=== PATIENT | female | born 1935 | race Caucasian/White ===

== ENCOUNTER 2016-05-15 11:53 | Outpatient (CLI) ==
[2015-07-11 13:04] VITALS: BMI 24.7
[2016-05-15 12:24] LABS: BASOPHILS % (AUTO) 0.7 % (0.0-3.0); EOSINOPHILS % (AUTO) 0.5 % (0.0-7.0); HEMATOCRIT 37.5 % (37.0-47.0); HEMOGLOBIN 12.8 g/dl (12.0-16.0); IMMATURE GRANULOCYTE % (AUTO) 0.5 % (0.0-5.0); LYMPHOCYTES # (AUTO) 1.3 K/uL (0.60-3.4); LYMPHOCYTES % (AUTO) 23.1 (10.0-50.0); MEAN CORPUSCULAR HEMOGLOBIN 30.5 pg (27.0-31.0); MEAN CORPUSCULAR HGB CONC 34.1 (31.8-35.4); MEAN CORPUSCULAR VOLUME 89.5 fl (81.0-99.0); MONOCYTES # (AUTO) 0.6 K/uL (0.4-2.0); MONOCYTES % (AUTO) 9.8 (0-10); NEUTROPHILS # (AUTO) 3.8 K/ul (2.0-6.9); NEUTROPHILS % (AUTO) 65.4; PLATELET COUNT 273 10^3/uL (140-440); RED BLOOD COUNT 4.19 10^6/ul (4.20-5.40); WHITE BLOOD COUNT 5.81 K/ul (4.6-10.2)
[2016-05-15 12:43] LABS: ALBUMIN 3.5 g/dL (3.4-5.0); ALBUMIN/GLOBULIN RATIO 0.88; ANION GAP 15.8; BILIRUBIN,TOTAL 0.24 mg/dL (0.00-1.20); BUN/CREATININE RATIO 18.94; CALCIUM 9.2 mg/dL (8.2-10.2); CREATININE 0.95 mg/dL (0.60-1.30); POTASSIUM 3.8 mmol/L (3.5-5.10); TOTAL PROTEIN 7.5 g/dL (5.8-8.1)
--- NOTE | 2016-05-15 13:00 | CT ---
EXAM: CT sinuses without contrast HISTORY: Acute sinusitis, maxillary COMPARISON: None TECHNIQUE: CT sinuses performed without intravenous contrast. Coronal and sagittal reformatted kemi ges obtained. FINDINGS: Mastoid air cells clear. Temporal mandibular joints normally aligned. No fracture ident ified. Sphenoid sinuses clear. No mucosal thickening in the left maxillary sinus. Ostiomeatal uni ts patent. Mild mucosal thickening ethmoid air cells. Frontal sinuses clear. No air-fluid levels in the paranasal sinuses. Globes and retrobulbar structures appear normal. There are atherosclerot ic calcifications. Low clips left neck region. Multiple missing teeth. Periapical lucency surroun ding an anterior left maxillary tooth and an anterior right mandibular tooth. Dental caries suggeste d. Nasal septum near midline. There are degenerative changes in the visualized spine. IMPRESSION: 1. Mild sinusitis with chronic features. 2. Periapical lucencies as described, likely periodontal disease. Dental caries suggested. Recommen d correlation with dental examination.
== END 2016-05-15 11:54 | disposition home or self-care (01) ==
LOC: RAD 11:53
PROVIDERS: ATTEND Emergency Medicine
DX: J01.00 Acute maxillary sinusitis, unspecified (principal); I10 Essential (primary) hypertension; I25.10 Atherosclerotic heart disease of native coronary artery without angina pectoris; E78.5 Hyperlipidemia, unspecified; E55.9 Vitamin D deficiency, unspecified; D64.9 Anemia, unspecified; M81.0 Age-related osteoporosis without current pathological fracture; F32.9 Major depressive disorder, single episode, unspecified; F41.1 Generalized anxiety disorder
CPT/HCPCS: 36415; 80053; 85025

== ENCOUNTER 2016-09-29 11:48 | Outpatient (CLI) ==
[2015-07-11 13:04] VITALS: BMI 24.7
[2016-09-29 12:27] LABS: BASOPHILS # (AUTO) 0.1 K/uL (0-0.2); BASOPHILS % (AUTO) 0.8 % (0.0-3.0); EOSINOPHILS # (AUTO) 0.1 K/ul (0.0-0.7); HEMATOCRIT 37.3 % (37.0-47.0); HEMOGLOBIN 12.6 g/dl (12.0-16.0); IMMATURE GRANULOCYTE % (AUTO) 0.2 % (0.0-5.0); LYMPHOCYTES # (AUTO) 1.7 K/uL (0.60-3.4); LYMPHOCYTES % (AUTO) 27.3 (10.0-50.0); MEAN CORPUSCULAR HEMOGLOBIN 29.9 pg (27.0-31.0); MEAN CORPUSCULAR HGB CONC 33.8 (31.8-35.4); MEAN CORPUSCULAR VOLUME 88.4 fl (81.0-99.0); MONOCYTES # (AUTO) 0.5 K/uL (0.4-2.0); MONOCYTES % (AUTO) 8.6 (0-10); NEUTROPHILS # (AUTO) 3.8 K/ul (2.0-6.9); NEUTROPHILS % (AUTO) 62.1; PLATELET COUNT 235 10^3/uL (140-440); RED BLOOD COUNT 4.22 10^6/ul (4.20-5.40); WHITE BLOOD COUNT 6.04 K/ul (4.6-10.2)
[2016-09-29 13:41] LABS: ALBUMIN 3.7 g/dL (3.4-5.0); ALBUMIN/GLOBULIN RATIO 1.12; ANION GAP 15.8; BILIRUBIN,TOTAL 0.63 mg/dL (0.00-1.20); BUN/CREATININE RATIO 12.79; CALCIUM 9.1 mg/dL (8.2-10.2); CHOL/HDL RATIO 3.6 (4.5-5.5); CREATININE 0.86 mg/dL (0.60-1.30); POTASSIUM 3.8 mmol/L (3.5-5.10)
== END 2016-09-29 11:49 | disposition home or self-care (01) ==
LOC: LAB 11:48
PROVIDERS: ATTEND Internal Medicine
DX: E78.5 Hyperlipidemia, unspecified (principal); D64.9 Anemia, unspecified; I10 Essential (primary) hypertension; Z79.899 Other long term (current) drug therapy
CPT/HCPCS: 36415; 80053; 80061; 83036; 84443; 85025

== ENCOUNTER 2016-10-31 11:59 | Inpatient (IN) ==
[2016-10-31] MEDS ORDERED: DECADRON 4 MG/ML SDV IM STA (12:50)
[2016-10-31] MEDS ORDERED: TYLENOL PO PRN (12:53)
[2016-10-31] MEDS ORDERED: TORADOL IVP STA (12:55)
[2016-10-31 13:25] VITALS: BMI 26.4
[2016-10-31 13:33] LABS: BASOPHILS % (AUTO) 0.3 % (0.0-3.0); EOSINOPHILS % (AUTO) 0.4 % (0.0-7.0); HEMATOCRIT 36.7 % (37.0-47.0); HEMOGLOBIN 12.6 g/dl (12.0-16.0); IMMATURE GRANULOCYTE % (AUTO) 0.4 % (0.0-5.0); LYMPHOCYTES # (AUTO) 1.4 K/uL (0.60-3.4); LYMPHOCYTES % (AUTO) 18.1 (10.0-50.0); MEAN CORPUSCULAR HEMOGLOBIN 30.1 pg (27.0-31.0); MEAN CORPUSCULAR HGB CONC 34.3 (31.8-35.4); MEAN CORPUSCULAR VOLUME 87.6 fl (81.0-99.0); MONOCYTES # (AUTO) 0.9 K/uL (0.4-2.0); MONOCYTES % (AUTO) 10.9 (0-10); NEUTROPHILS # (AUTO) 5.5 K/ul (2.0-6.9); NEUTROPHILS % (AUTO) 69.9; PLATELET COUNT 250 10^3/uL (140-440); RED BLOOD COUNT 4.19 10^6/ul (4.20-5.40); WHITE BLOOD COUNT 7.79 K/ul (4.6-10.2)
[2016-10-31] MEDS ORDERED: ANTIVERT PO PRN (13:54)
[2016-10-31 14:15] LABS: ALBUMIN 3.8 g/dL (3.4-5.0); ALBUMIN/GLOBULIN RATIO 1.15; ANION GAP 15.1; BILIRUBIN,TOTAL 0.89 mg/dL (0.00-1.20); BUN/CREATININE RATIO 13.63; CALCIUM 9.6 mg/dL (8.2-10.2); CREATININE 0.88 mg/dL (0.60-1.30); POTASSIUM 4.1 mmol/L (3.5-5.10); TOTAL PROTEIN 7.1 g/dL (5.8-8.1)
[2016-10-31] MEDS: DEXTROSE 5%-1/2NS IV SOLUTION 1,000 ML IV SCH (14:25)
[2016-10-31] MEDS: LEVAQUIN 500 MG in PREMIX 100 ML D5W 1 BAG IV SCH (14:26)
--- NOTE | 2016-10-31 14:29 | DI ---
EXAM: Chest two view, frontal and lateral views. HISTORY: Shortness of breath. Bronchitis. Sputum production. COMPARISON: 07/11/2015. FINDINGS: The heart size is normal. Atherosclerotic calcifications are present. There is no pulmo nary vascular congestion. The lungs are clear. No pleural effusion or pneumothorax is seen. No ac chelly osseous abnormality identified. Numerous clips seen over the base of the neck and upper abdomen . Since the prior study, there has been no significant interval change. IMPRESSION: No acute cardiopulmonary process.
[2016-10-31] MEDS: COREG PO SCH (17:05)
[2016-10-31] MEDS: ULTRAM PO PRN (19:00)
[2016-10-31] MEDS: ZESTRIL PO SCH (20:09)
[2016-10-31] MEDS: ATIVAN PO PRN (20:10)
[2016-10-31] MEDS: CARDIZEM PO SCH (20:11)
[2016-10-31] MEDS: TORADOL IVP SCH (20:11)
[2016-10-31] MEDS: LIBRIUM PO SCH (20:11)
[2016-10-31] MEDS ORDERED: LISINOPRIL 20 MG PO SCH (21:00)
[2016-11-01 04:58] LABS: BASOPHILS % (AUTO) 0.3 % (0.0-3.0); HEMOGLOBIN 11.6 g/dl (12.0-16.0); IMMATURE GRANULOCYTE % (AUTO) 0.8 % (0.0-5.0); LYMPHOCYTES # (AUTO) 0.8 K/uL (0.60-3.4); LYMPHOCYTES % (AUTO) 12.8 (10.0-50.0); MEAN CORPUSCULAR HEMOGLOBIN 30.1 pg (27.0-31.0); MEAN CORPUSCULAR HGB CONC 35.2 (31.8-35.4); MEAN CORPUSCULAR VOLUME 85.5 fl (81.0-99.0); MONOCYTES # (AUTO) 0.5 K/uL (0.4-2.0); NEUTROPHILS # (AUTO) 5.2 K/ul (2.0-6.9); NEUTROPHILS % (AUTO) 79.1; PLATELET COUNT 250 10^3/uL (140-440); RED BLOOD COUNT 3.86 10^6/ul (4.20-5.40); WHITE BLOOD COUNT 6.57 K/ul (4.6-10.2)
[2016-11-01] MEDS: DEXTROSE 5%-1/2NS IV SOLUTION 1,000 ML IV SCH ×2 (05:18→20:44)
[2016-11-01] MEDS: ULTRAM PO PRN ×2 (05:25→15:18)
[2016-11-01 05:32] LABS: ALBUMIN/GLOBULIN RATIO 0.94; ANION GAP 14.2; BILIRUBIN,TOTAL 0.51 mg/dL (0.00-1.20); BUN/CREATININE RATIO 18.29; CALCIUM 8.4 mg/dL (8.2-10.2); CREATININE 0.82 mg/dL (0.60-1.30); POTASSIUM 4.2 mmol/L (3.5-5.10); TOTAL PROTEIN 6.2 g/dL (5.8-8.1)
[2016-11-01] MEDS ORDERED: NON-FORMULARY MEDICATION (Escitalopram Oxalate [Escitalopram Oxalate] 20 MG) PO SCH (09:00)
[2016-11-01] MEDS ORDERED: NON-FORMULARY MEDICATION (Amlodipine Besylate [Amlodipine Besylate] 10 MG) PO SCH ×22 (09:00)
[2016-11-01] MEDS ORDERED: DECADRON 4 MG/ML SDV IM SCH (09:00)
[2016-11-01] MEDS: CARDIZEM PO SCH ×2 (09:02→20:51)
[2016-11-01] MEDS: ZESTRIL PO SCH ×2 (09:02→20:51)
[2016-11-01] MEDS: LEXAPRO PO SCH (09:02)
[2016-11-01] MEDS: COREG PO SCH ×2 (09:03→16:48)
[2016-11-01] MEDS: LEVAQUIN 500 MG in PREMIX 100 ML D5W 1 BAG IV SCH (09:03)
[2016-11-01] MEDS: NORVASC PO SCH (09:03)
[2016-11-01] MEDS: ASPIRIN EC PO SCH (09:03)
[2016-11-01] MEDS: LIBRIUM PO SCH ×2 (09:03→20:56)
[2016-11-01] MEDS: TORADOL IVP SCH ×2 (09:04→20:54)
--- NOTE | 2016-11-01 10:19 | PCM.PROG ---
Attending Provider: ATTENDING PROVIDER: Dr. SAGE MCCORMACK DATE OF SERVICE: 11/01/16 SUBJECTIVE: This 81 year old WHITE/ F was hospitalized 10/31/16. The patient is seen with Cheri, Nurse Practitioner. The patient is lying in bed. She states the headache is somewhat better. She is afebrile since admission. She has severe tenderness left cheek with swelling and redness around left eye. REVIEW OF SYSTEMS: CONSTITUTIONAL: Fatigue. No night sweats. No fever or chills. HEENT: Eyes: Left eye swelling and pain. No visual changes. No eye discharge. ENT: No runny nose. No epistaxis. No sinus pain. No odynophagia. No congestion. RESPIRATORY: No cough, no congestion. No hemoptysis. CARDIOVASCULAR: No angina symptoms. No CHF symptoms. No atypical chest pain for CAD. No palpitations. No shortness of breath. GASTROINTESTINAL: No abdominal pain. No nausea or vomiting. No diarrhea or constipation. No hematemesis. No hematochezia. GENITOURINARY: No urgency. No frequency. No dysuria. No hematuria. No obstructive symptoms. No discharge. No pain. No significant abnormal bleeding. MUSCULOSKELETAL: No musculoskeletal pain; no joint swelling. NEUROLOGICAL: Positive for headache. Awake, alert, oriented to time, place and person. No neck pain. No syncope. No seizures. No dizziness. PSYCHIATRIC: Not anxious. No depression. No suicidal thoughts. No homicidal thoughts. SKIN: No rash. No lesions. No wounds. ENDOCRINE: No unexplained weight loss. No weight gain. HEMATOLOGIC/LYMPHATIC: No anemia. No purpura. No petechiae. No prolonged or excessive bleeding. No palpable lymph nodes. PHYSICAL EXAMINATION: GENERAL: The patient is awake, alert and oriented, lying in bed in no distress. VITAL SIGNS: Temperature 97.9 F, Pulse 62, Respiratory Rate 14, BP 138/63, Pulse Ox 96% HEENT: Head normocephalic, atraumatic. Eyes: Extraocular muscles are intact. Pupils are equal, round and reactive to light and accommodation. Left eye with lower surrounding erythema and tenderness extending to the left maxillary sinus ; no eye drainage. Ears: No lesions. Nose appeared normal. Throat: No exudate or erythema. NECK: Supple. No JVD, no carotid bruit. No lymphadenopathy or thyromegaly. LUNGS: Diminished lung sounds bilaterally. Clear to auscultation. Percussion note normal. Chest symmetrical. HEART: S1, S2, no S3. No murmurs. No cyanosis or clubbing. No ascites. Pulses: Dorsalis pedis and posterior tibial pulses +1 to +2 both sides. ABDOMEN: Soft. Non-tender. Bowel sounds active. No CVA tenderness. No mass felt. EXTREMITIES: No edema. Full range of motion of all extremities, equal. NEUROLOGIC: No focal deficit. Cranial nerves II through XII are grossly intact. Headache. No double vision or headache. SKIN: Not dry. Intact. Turgor-normal. LYMPHATIC: No palpable lymph nodes/no lymphedema. MUSCULOSKELETAL: Normal joints with no swelling. Muscle tone is normal. LAB REVIEW: 11/01/16 04:57 11/01/16 04:57 11/01/16 04:57: WBC 6.57, RBC 3.86 L, Hgb 11.6 L, Hct 33.0 L, MCV 85.5, MCH 30.1 , MCHC 35.2, RDW Coeff of Gerald 13.2, Plt Count 250, Immature Gran % (Auto) 0.8, Neut % (Auto) 79.1, Lymph % (Auto) 12.8, [place] % (Auto) 7.0, Eos % (Auto) 0.0, Baso % (Auto) 0.3, Immature Gran # (Auto) 0.1, Neut # 5.2, Lymph # 0.8, [place] # 0.5, Eos # 0.0, Baso # 0.0, Sodium 134 L, Potassium 4.2, Chloride 102, Carbon Dioxide 22 L, Anion Gap 14.2, BUN 15, Creatinine 0.82, Estimated GFR (MDRD) 67.00, BUN/Creatinine Ratio 18.29, Glucose 177 H D, Calcium 8.4, Total Bilirubin 0.51, AST 14 L, ALT 12, Alkaline Phosphatase 73, Total Protein 6.2, Albumin 3.0 L, Globulin 3.2, Albumin/Globulin Ratio 0.94 10/31/16 13:25: WBC 7.79, RBC 4.19 L, Hgb 12.6, Hct 36.7 L, MCV 87.6, MCH 30.1, MCHC 34.3, RDW Coeff of Gerald 13.6, Plt Count 250, Immature Gran % (Auto) 0.4, Neut % (Auto) 69.9, Lymph % (Auto) 18.1, [place] % (Auto) 10.9 H, Eos % (Auto) 0.4 , Baso % (Auto) 0.3, Immature Gran # (Auto) 0.0, Neut # 5.5, Lymph # 1.4, [place] # 0.9, Eos # 0.0, Baso # 0.0, Sodium 139, Potassium 4.1, Chloride 103, Carbon Dioxide 25, Anion Gap 15.1, BUN 12, Creatinine 0.88, Estimated GFR (MDRD) 62.00 , BUN/Creatinine Ratio 13.63, Glucose 89, Calcium 9.6, Total Bilirubin 0.89, AST 18, ALT 14, Alkaline Phosphatase 87, Total Protein 7.1, Albumin 3.8, Globulin 3.3, Albumin/Globulin Ratio 1.15, Vitamin B12 173 L, TSH 0.604, Free T4 1.20 H ASSESSMENT: 1. Left periorbital cellulitis 2. Acute sinusitis 3. Headache PLAN: 1. CT scan of head today to evaluate left-sided facial swelling. 2. Continue IV antibiotics. Plan and coordination of the patient's care discussed in the presence of Ferry Captain and nurse. CONDITION: Stable SCRIBED BY: Ridge ZUÑIGA scribed while in presence of service performed by Dr. SAGE MCCORMACK/CHERI VALDIVIA APRN on 11/01/16 ([id number])
--- NOTE | 2016-11-01 11:42 | CT ---
EXAM: CT head without contrast. HISTORY: Headache. Facial pain. Periorbital swelling. COMPARISON: Facial CT 05/15/2016. Brain MRI 04/23/2014. TECHNIQUE: Multiple axial images of the brain were obtained from the skull base through the vertex without intravenous contrast. FINDINGS: There is no intracranial hemorrhage or extraaxial collection. The rodrigues-white differentia tion is maintained without evidence for acute large vascular territory infarction. There are areas of periventricular and subcortical white matter low attenuation. The cortical sulci and cerebral ve ntricles are symmetrically enlarged. The basal cisterns are well visualized. There is no hydroceph alus, mass effect, or midline shift. The paranasal sinuses and mastoid air cells are clear. The ca lvarium is intact. IMPRESSION: 1. No acute intracranial abnormality. 2. Chronic small vessel ischemic changes and atrophy.
--- NOTE | 2016-11-01 11:51 | CT ---
Exam: CT of the sinuses without intravenous contrast. Comparison: CT of the brain performed on the same day. CT of the sinuses performed 05/15/2016. Reason for exam: Facial pain. FINDINGS: No displaced facial fractures are seen. Multiple lucencies are seen consistent with dent al caries. No discrete fluid collection or abscess formation. There is minimal mucosal thickening ethmoid sinus. The maxillary sinuses and mastoid air cells are unopacified. No inflammatory changes are seen in the intra or extraconal space. The imaged portions of the cervical spine demonstrate moderate degenerative disease. Degenerative disease is seen within the left temporomandibular joint space. Impression: 1. Multiple dental caries 2. Minimal mucosal thickening in the ethmoid sinus. 3. 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
[2016-11-01] MEDS: ZOCOR PO SCH (20:51)
[2016-11-02] MEDS: ULTRAM PO PRN ×2 (00:39→13:52)
[2016-11-02] MEDS: ATIVAN PO PRN (00:39)
[2016-11-02 05:43] LABS: HEMATOCRIT 29.9 % (37.0-47.0); HEMOGLOBIN 10.5 g/dl (12.0-16.0); IMMATURE GRANULOCYTE % (AUTO) 0.8 % (0.0-5.0); LYMPHOCYTES # (AUTO) 1.1 K/uL (0.60-3.4); LYMPHOCYTES % (AUTO) 11.9 (10.0-50.0); MEAN CORPUSCULAR HEMOGLOBIN 29.7 pg (27.0-31.0); MEAN CORPUSCULAR HGB CONC 35.1 (31.8-35.4); MEAN CORPUSCULAR VOLUME 84.7 fl (81.0-99.0); MONOCYTES # (AUTO) 0.6 K/uL (0.4-2.0); MONOCYTES % (AUTO) 6.9 (0-10); NEUTROPHILS # (AUTO) 7.2 K/ul (2.0-6.9); NEUTROPHILS % (AUTO) 80.4; PLATELET COUNT 226 10^3/uL (140-440); RED BLOOD COUNT 3.53 10^6/ul (4.20-5.40)
[2016-11-02 06:06] LABS: ALBUMIN 2.9 g/dL (3.4-5.0); ALBUMIN/GLOBULIN RATIO 1.04; ANION GAP 12.4; BILIRUBIN,TOTAL 0.33 mg/dL (0.00-1.20); BUN/CREATININE RATIO 26.19; CALCIUM 8.2 mg/dL (8.2-10.2); CREATININE 0.84 mg/dL (0.60-1.30); POTASSIUM 4.4 mmol/L (3.5-5.10); TOTAL PROTEIN 5.7 g/dL (5.8-8.1)
[2016-11-02] MEDS ORDERED: DECADRON 4 MG/ML SDV IM STA (09:08)
[2016-11-02] MEDS: NORVASC PO SCH (09:56)
[2016-11-02] MEDS: ZESTRIL PO SCH ×2 (09:56→20:46)
[2016-11-02] MEDS: LEXAPRO PO SCH (09:56)
[2016-11-02] MEDS: TORADOL IVP SCH ×2 (09:56→20:46)
[2016-11-02] MEDS: COREG PO SCH ×2 (09:56→17:30)
[2016-11-02] MEDS: DEXTROSE 5%-1/2NS IV SOLUTION 1,000 ML IV SCH ×3 (09:57→13:52)
[2016-11-02] MEDS: CARDIZEM PO SCH ×2 (09:57→20:47)
[2016-11-02] MEDS: ASPIRIN EC PO SCH (09:57)
[2016-11-02] MEDS: ROCEPHIN 1 GM in SODIUM CHLORIDE 50 ML IV SCH (10:05)
[2016-11-02] MEDS: LIBRIUM PO SCH ×2 (10:12→20:46)
--- NOTE | 2016-11-02 10:38 | PN ---
DATE OF SERVICE: 11/01/16 SUBJECTIVE: The patient was seen with Nurse Practitioner. The patient is an 81 year old white female hospitalized with periorbital cellulitis, acute sinusitis, bronchitis, dizziness and weakness. The patient's condition has improved some. She is feeling somewhat better. Hydration status seems to be having improved. PHYSICAL EXAMINATION: VITAL SIGNS: Temperature 97.9, pulse 62, respiratory rate 14, blood pressure 138/63 and pulse ox 96%. HEENT: Head normocephalic, atraumatic. Eyes: Extraocular muscles are intact. Pupils are equal, round and reactive to light and accommodation. Ears: No lesions. Nose appeared normal. Throat: No exudate or erythema. NECK: Supple. No JVD, no carotid bruit. No lymphadenopathy or thyromegaly. LUNGS: Decreased breath sounds but clear to auscultation. Percussion note normal. Chest symmetrical. HEART: S1, S2, no S3. No murmurs. No cyanosis or clubbing. No ascites. Pulses: Dorsalis pedis and posterior tibial pulses +1 to +2 both sides. ABDOMEN: Soft. Nontender. Bowel sounds active. No CVA tenderness. No mass felt. EXTREMITIES: No edema. Full range of motion of all extremities, equal. NEUROLOGIC: No focal deficit. Cranial nerves II through XII are grossly intact. No headache, no double vision or headache. SKIN: Not dry. Intact. Turgor - normal. LYMPHATIC: No palpable lymph nodes/no lymphedema. MUSCULOSKELETAL: Normal joints with no swelling. Muscle tone is normal. LABS: hgb 11.6, hct 33, WBC 6.500 normal differential, creatinine 4.2 and glucose 177 could be from steroids. ASSESSMENT: 1. Acute bronchitis 2. Cellulitis 3. Weakness 4. Dehydration Seems to be improving. PLAN: 1. The patient is to have CT scan of the head today to see the periorbital swelling and sinuses CONDITION: Stable. TIME SPENT: More than 30 minutes. Plan and coordination of the patient's care discussed in the presence of nurse. ALEXUS
[2016-11-02] MEDS: LEVAQUIN 500 MG in PREMIX 100 ML D5W 1 BAG IV SCH (10:40)
--- NOTE | 2016-11-02 11:19 | PCM.PROG ---
Attending Provider: ATTENDING PROVIDER: Dr. SAGE MCCORMACK DATE OF SERVICE: 11/02/16 SUBJECTIVE: This 81 year old WHITE/ F was hospitalized 10/31/16. The patient is seen with Cheri, Nurse Practitioner. The patient is sitting up in bed eating breakfast but appetite is not that good. CT scan returned showing sinusitis. She continues to have soreness to the left periorbital area. The patient looks better. She states she feels weak. The patient's son had a problem with the patient being on IV Levaquin as he felt this was too strong and was in agreement to change to Rocephin and discharge home on Keflex. REVIEW OF SYSTEMS: CONSTITUTIONAL: Weakness. No night sweats. No fever or chills. HEENT: Eyes: No visual changes. Left eye swelling and redness decreased; tenderness. No eye discharge. ENT: Nasal congestion. No epistaxis. No sinus pain. No odynophagia. No congestion. RESPIRATORY: No cough, no congestion. No hemoptysis. CARDIOVASCULAR: No angina symptoms. No CHF symptoms. No atypical chest pain for CAD. No palpitations. No shortness of breath. GASTROINTESTINAL: Appetite not that good. No abdominal pain. No nausea or vomiting. No diarrhea or constipation. No hematemesis. No hematochezia. GENITOURINARY: No urgency. No frequency. No dysuria. No hematuria. No obstructive symptoms. No discharge. No pain. No significant abnormal bleeding. MUSCULOSKELETAL: No musculoskeletal pain; no joint swelling. NEUROLOGICAL: Awake, alert, oriented to time, place and person. No headache. No neck pain. No syncope. No seizures. No dizziness. PSYCHIATRIC: Not anxious. No depression. No suicidal thoughts. No homicidal thoughts. SKIN: No rash. No lesions. No wounds. ENDOCRINE: No unexplained weight loss. No weight gain. HEMATOLOGIC/LYMPHATIC: No anemia. No purpura. No petechiae. No prolonged or excessive bleeding. No palpable lymph nodes. PHYSICAL EXAMINATION: GENERAL: The patient is awake, alert and oriented, sitting up in bed eating breakfast in no distress. VITAL SIGNS: Temperature 97.8 F, Pulse 60, Respiratory Rate 22, BP 138/64, Pulse Ox 94% HEENT: Head normocephalic, atraumatic. Eyes: Extraocular muscles are intact. Pupils are equal, round and reactive to light and accommodation. Ears: No lesions. Nose appeared normal. Throat: No exudate or erythema. NECK: Supple. No JVD, no carotid bruit. No lymphadenopathy or thyromegaly. LUNGS: Diminished breath sounds, equal and clear to auscultation. Percussion note normal. Chest symmetrical. HEART: S1, S2, no S3. No murmurs. No cyanosis or clubbing. No ascites. Pulses: Dorsalis pedis and posterior tibial pulses +1 to +2 both sides. ABDOMEN: Soft. Non-tender. Bowel sounds active. No CVA tenderness. No mass felt. EXTREMITIES: No edema. Full range of motion of all extremities, equal. NEUROLOGIC: No focal deficit. Cranial nerves II through XII are grossly intact. No headache, no double vision or headache. SKIN: Not dry. Intact. Turgor-normal. LYMPHATIC: No palpable lymph nodes/no lymphedema. MUSCULOSKELETAL: Normal joints with no swelling. Muscle tone is normal. LAB REVIEW: 11/02/16 05:20 11/02/16 05:20 11/02/16 05:20: WBC 9.00, RBC 3.53 L, Hgb 10.5 L, Hct 29.9 L, MCV 84.7, MCH 29.7 , MCHC 35.1, RDW Coeff of Gerald 13.2, Plt Count 226, Immature Gran % (Auto) 0.8, Neut % (Auto) 80.4, Lymph % (Auto) 11.9, Mason % (Auto) 6.9, Eos % (Auto) 0.0, Baso % (Auto) 0.0, Immature Gran # (Auto) 0.1, Neut # 7.2 H, Lymph # 1.1, Mason # 0.6, Eos # 0.0, Baso # 0.0, Sodium 129 L, Potassium 4.4, Chloride 99, Carbon Dioxide 22 L, Anion Gap 12.4, BUN 22 H, Creatinine 0.84, Estimated GFR (MDRD) 65.00, BUN/Creatinine Ratio 26.19, Glucose 166 H, Calcium 8.2, Total Bilirubin 0.33, AST 28, ALT 30, Alkaline Phosphatase 73, Total Protein 5.7 L, Albumin 2.9 L, Globulin 2.8, Albumin/Globulin Ratio 1.04 ASSESSMENT: 1. Left periorbital cellulitis, improving 2. Acute sinusitis 3. Headache PLAN: 1. Decadron 4 mg today 2. Begin Rocephin 1 gm IV 3. D/C IV Levaquin per son's request 4. Encourage the patient to be up and about Plan and coordination of the patient's care discussed in the presence of Business Management Consultant and nurse. CONDITION: Stable SCRIBED BY: [employer] scribed while in presence of service performed by Dr. SAGE MCCORMACK/CHERI VALDIVIA APRN on 11/02/16 ([id number])
[2016-11-02 11:50] LABS: BILIRUBIN,URINE Negative (NEGATIVE); KETONES,URINE Negative (NEGATIVE); LEUKOCYTE ESTERASE ,URINE 2+ (NEGATIVE); NITRITE,URINE Positive (NEGATIVE); PH,URINE 5.5 (5-9); PROTEIN,URINE Negative (NEGATIVE); URINE, BLOOD 1+ (NEGATIVE)
[2016-11-02 11:57] LABS: ADD URINE MICROSCOPIC YES
[2016-11-02 11:58] LABS: BACTERIA,URINE 3+ (NOT PRESENT)
--- NOTE | 2016-11-02 13:23 | HP ---
DATE OF SERVICE: 10/31/16 REASON FOR HOSPITALIZATION/HISTORY OF PRESENT ILLNESS: Facial pain/ puffiness, headaches, 100 fever yesterday started Sunday, coughing mild shortness of breath for three days. Left eye red, tender. Green bloody sinus drainage. REVIEW OF SYSTEMS: CONSTITUTIONAL: No fever. Fatigue. HEENT: No sinus drainage, no sore throat. RESPIRATORY: Cough, no congestion. CARDIOVASCULAR: No atypical chest pain for coronary artery disease. No angina , CHF symptoms, palpitations. Shortness of breath. GASTROINTESTINAL: No melena or abdominal pain. No GERD. Appetite poor times three days. GENITOURINARY: No hematuria, no prostatism, no polyuria. STORE CASHIER: No blackout, no dizziness, Headache, no double vision. MUSCULOSKELETAL: Osteoarthritis pain, no joint swelling. ENDOCRINE: No weight loss, no weight gain. SKIN: Not dry, no rash. PSYCHIATRIC: Not anxious, no depression, no suicidal thoughts, no homicidal thoughts. SOCIAL HISTORY: Marital Status: . 7 children- 4 boy and 3 girls. Alcohol Usage: No. Tobacco Usage: Yes. FAMILY HISTORY: Father Mother cancer Brother 2-1/2 brother Sister 2-1/2 sister The patient was raised by her grandparents and had little knowledge of family. SURGICAL HISTORY: Tonsillectomy and adenoidectomy Gallbladder Total abdominal hysterectomy Stomach blockage Appendectomy The patient thinks all surgeries were in the 1970's MEDICAL HISTORY: Hypertension CAD with stent Dyslipidemia Anemia Paget's disease Carotid Endarterectomy, 05/03 B12 daily MEDICATIONS: Fosamax 70mg Po daily Antivert 12.5 PO twice a day Ativan 0.5mg twice a day PRN Cardizem 60mg twice a day Coreg 6.25mg twice a day with food Lexapro 20mg PO daily Librium 10mg twice a day Lisinopril 20mg twice a day Norvasc 10mg Po daily Simvastatin 40mg PO daily Aspirin 81mg PO daily ALLERGIES: Penicillins Sulfa PHYSICAL EXAMINATION: V/S: Pulse 109, blood pressure 152/86, temperature 98.2 and oxygen saturation 98 %. Height 5'2 and weight 148.8. GENERAL APPEARANCE: Oriented times three. HEENT: Normal. Erythema around left eye tender above and blow. Skin dry. NECK: No JVP, no bruits. RESPIRATORY: Lungs are clear. Decreased breath sounds rales left lower lobe. CARDIOVASCULAR: S1, S2, no S3, no murmurs. No cyanosis, clubbing. No ascites. GI/ABDOMEN: No tenderness. Bowel sounds are active. EXTREMITIES: edema, pulses +1, equal. STORE CASHIER: Deep tendon reflexes, sensory, motor and gait all normal. RECTAL: 07/01 Dr. Keen/PELVIC: advised yearly/ mammogram the patient refused. ASSESSMENT: 1. Left periorbital cellulitis 2. Acute sinusitis 3. Acute bronchitis 4. Dehydration 5. Sinus tachycardia 6. Hypertension 7. CAD statue post stent 8. Depression 9. CAD 10.Dyslipidemia 11.Anemia 12.Paget's 13.CEA 05/03 14.B12 level 213 12/02 PLAN: 1. Admit regular 2. Continue all home medications 3. Regular diet 4. 1000cc D5 1/2 normal saline 12 hourly 5. U/A x2 culture and sensitivity 6. Sputum for culture and sensitivity 7. Blood culture x2 8. 1cc Decadron IM today and tomorrow AM 9. Levaquin 500mg IV today and daily AM 10.Tylenol 500mg PO PRN for fever over 100 11.CBC, CMP today and daily AM 12. T4 TSH 13. B12 level 14. EKG and X-ray chest today 15. Toradol 10mg IV now and 12 hourly X-RAY AND LABS: X-ray showed no acute cardiopulmonary abnormality. B12 level low 173, TSH normal , creatinine 0.8, BUN 12, potassium 4.1. TIME SPENT: More than 70 minutes. MTDD
[2016-11-02] MEDS: ZOCOR PO SCH (20:46)
[2016-11-03 05:48] LABS: HEMATOCRIT 30.8 % (37.0-47.0); HEMOGLOBIN 10.9 g/dl (12.0-16.0); IMMATURE GRANULOCYTE % (AUTO) 0.7 % (0.0-5.0); LYMPHOCYTES # (AUTO) 0.9 K/uL (0.60-3.4); LYMPHOCYTES % (AUTO) 10.6 (10.0-50.0); MEAN CORPUSCULAR HGB CONC 35.4 (31.8-35.4); MEAN CORPUSCULAR VOLUME 84.8 fl (81.0-99.0); MONOCYTES # (AUTO) 0.5 K/uL (0.4-2.0); MONOCYTES % (AUTO) 6.1 (0-10); NEUTROPHILS # (AUTO) 6.7 K/ul (2.0-6.9); NEUTROPHILS % (AUTO) 82.6; PLATELET COUNT 244 10^3/uL (140-440); RED BLOOD COUNT 3.63 10^6/ul (4.20-5.40); WHITE BLOOD COUNT 8.15 K/ul (4.6-10.2)
[2016-11-03 06:08] LABS: ALBUMIN 3.1 g/dL (3.4-5.0); ALBUMIN/GLOBULIN RATIO 1.03; ANION GAP 10.5; BILIRUBIN,TOTAL 0.34 mg/dL (0.00-1.20); BUN/CREATININE RATIO 31.32; CALCIUM 8.5 mg/dL (8.2-10.2); CREATININE 0.83 mg/dL (0.60-1.30); POTASSIUM 4.5 mmol/L (3.5-5.10); TOTAL PROTEIN 6.1 g/dL (5.8-8.1)
[2016-11-03] MEDS: ASPIRIN EC PO SCH (08:11)
[2016-11-03] MEDS: COREG PO SCH ×2 (08:11→17:21)
[2016-11-03] MEDS: TORADOL IVP SCH ×2 (08:35→20:06)
[2016-11-03] MEDS: FLONASE NAS SCH (09:43)
[2016-11-03] MEDS: LIBRIUM PO SCH ×2 (09:43→20:02)
[2016-11-03] MEDS: ZESTRIL PO SCH ×2 (09:44→20:02)
[2016-11-03] MEDS: CARDIZEM PO SCH ×2 (09:44→20:02)
[2016-11-03] MEDS: LEXAPRO PO SCH (09:44)
[2016-11-03] MEDS: NORVASC PO SCH (09:45)
[2016-11-03] MEDS: ROCEPHIN 1 GM in SODIUM CHLORIDE 50 ML IV SCH (09:45)
--- NOTE | 2016-11-03 11:56 | PCM.PROG ---
Attending Provider: ATTENDING PROVIDER: Dr. SAGE MCCORMACK DATE OF SERVICE: 11/03/16 SUBJECTIVE: This 81 year old WHITE/ F was hospitalized 10/31/16. The patient is seen with Cheri, Nurse Practitioner. She is alert, sitting up in bed. She states she feels some better but still has headache and severe facial tenderness. She had abnormal UA yesterday; preliminary culture report shows gram negative rods. REVIEW OF SYSTEMS: CONSTITUTIONAL: Weakness. No night sweats. No fever or chills. HEENT: Eyes: No visual changes. No eye pain. No eye discharge. ENT: No runny nose. No epistaxis. No sinus pain. No odynophagia. No congestion. RESPIRATORY: No cough, no congestion. No hemoptysis. No shortness of breath. CARDIOVASCULAR: No angina symptoms. No CHF symptoms. No atypical chest pain for CAD. No palpitations. No orthopnea. GASTROINTESTINAL: No abdominal pain. No nausea or vomiting. No diarrhea or constipation. No hematemesis. No hematochezia. GENITOURINARY: No urgency. No frequency. No dysuria. No hematuria. No obstructive symptoms. No discharge. No pain. No significant abnormal bleeding. MUSCULOSKELETAL: No musculoskeletal pain; no joint swelling. NEUROLOGICAL: Awake, alert, oriented to time, place and person. Headache. No neck pain. No syncope. No seizures. No dizziness. PSYCHIATRIC: Not anxious. No depression. No suicidal thoughts. No homicidal thoughts. SKIN: No rash. No lesions. No wounds. ENDOCRINE: No unexplained weight loss. No weight gain. HEMATOLOGIC/LYMPHATIC: No anemia. No purpura. No petechiae. No prolonged or excessive bleeding. No palpable lymph nodes. PHYSICAL EXAMINATION: GENERAL: The patient is awake, alert and oriented, lying in bed in no distress. VITAL SIGNS: Temperature 97.1 F, Pulse 66, Respiratory Rate 16, BP 126/60, Pulse Ox 94% HEENT: Head normocephalic, atraumatic. Face: Bilateral maxillary tenderness. No periorbital swelling or redness. Eyes: Extraocular muscles are intact. Pupils are equal, round and reactive to light and accommodation. Ears: No lesions. Nose appeared normal. Throat: No exudate or erythema. NECK: Supple. No JVD, no carotid bruit. No lymphadenopathy or thyromegaly. LUNGS: Diminished breath sounds bilaterally. Clear to auscultation. Percussion note normal. Chest symmetrical. HEART: S1, S2, no S3. No murmurs. No cyanosis or clubbing. No ascites. Pulses: Dorsalis pedis and posterior tibial pulses +1 to +2 both sides. ABDOMEN: Soft. Non-tender. Bowel sounds active. No CVA tenderness. No mass felt. EXTREMITIES: No edema. Full range of motion of all extremities, equal. NEUROLOGIC: No focal deficit. Cranial nerves II through XII are grossly intact. Headache; no double vision or headache. SKIN: Not dry. Intact. Turgor-normal. LYMPHATIC: No palpable lymph nodes/no lymphedema. MUSCULOSKELETAL: Normal joints with no swelling. Muscle tone is normal. LAB REVIEW: 11/03/16 05:30 11/03/16 05:30 11/03/16 05:30: WBC 8.15, RBC 3.63 L, Hgb 10.9 L, Hct 30.8 L, MCV 84.8, MCH 30.0 , MCHC 35.4, RDW Coeff of Gerald 13.1, Plt Count 244, Immature Gran % (Auto) 0.7, Neut % (Auto) 82.6, Lymph % (Auto) 10.6, [place]ley % (Auto) 6.1, Eos % (Auto) 0.0, Baso % (Auto) 0.0, Immature Gran # (Auto) 0.1, Neut # 6.7, Lymph # 0.9, Donley # 0.5, Eos # 0.0, Baso # 0.0, Sodium 126 L, Potassium 4.5, Chloride 97 L, Carbon Dioxide 23, Anion Gap 10.5, BUN 26 H, Creatinine 0.83, Estimated GFR (MDRD) 66.00, BUN/Creatinine Ratio 31.32, Glucose 149 H, Calcium 8.5, Total Bilirubin 0.34, AST 19, ALT 25, Alkaline Phosphatase 71, Total Protein 6.1, Albumin 3.1 L , Globulin 3.0, Albumin/Globulin Ratio 1.03 11/02/16 10:50: Urine Color Yellow, Urine Clarity Cloudy, Urine pH 5.5, Ur Specific [place] >=1.030, Urine Protein Negative, Urine Glucose (UA) Negative, Urine Ketones Negative, Urine Blood 1+, Urine Nitrite Positive, Urine Bilirubin Negative, Urine Urobilinogen 0.2, Ur Leukocyte Esterase 2+, Urine Microscopic RBC 20-30, Urine Microscopic WBC 20-30, Ur Squamous Epith Cells 5-10, Urine Bacteria 3+ ASSESSMENT: 1. Acute UTI, culture pending. 2. Left periorbital cellulitis, improving 3. Acute sinsutis 4. Headache PLAN: 1. Continue IV Rocephin 2. Will monitor closely 3. Flonase two sprays daily 4. Decadron 4 mg IM Plan and coordination of the patient's care discussed in the presence of System Specialist and nurse. CONDITION: Stable SCRIBED BY: Kevin ZUÑIGAist scribed while in presence of service performed by Dr. SAGE MCCORMACK/CHERI VALDIVIA APRN on 11/03/16 ([id number])
[2016-11-03] MEDS: ULTRAM PO PRN (19:36)
[2016-11-03] MEDS: ZOCOR PO SCH (20:03)
[2016-11-03] MEDS: TORADOL IM SCH (20:40)
[2016-11-04] MEDS: ULTRAM PO PRN ×2 (04:45→18:21)
[2016-11-04 07:04] LABS: EOSINOPHILS % (AUTO) 0.3 % (0.0-7.0); HEMATOCRIT 30.4 % (37.0-47.0); HEMOGLOBIN 10.6 g/dl (12.0-16.0); IMMATURE GRANULOCYTE % (AUTO) 0.6 % (0.0-5.0); LYMPHOCYTES # (AUTO) 1.5 K/uL (0.60-3.4); LYMPHOCYTES % (AUTO) 20.7 (10.0-50.0); MEAN CORPUSCULAR HEMOGLOBIN 29.5 pg (27.0-31.0); MEAN CORPUSCULAR HGB CONC 34.9 (31.8-35.4); MEAN CORPUSCULAR VOLUME 84.7 fl (81.0-99.0); MONOCYTES # (AUTO) 0.8 K/uL (0.4-2.0); MONOCYTES % (AUTO) 11.7 (0-10); NEUTROPHILS # (AUTO) 4.7 K/ul (2.0-6.9); NEUTROPHILS % (AUTO) 66.7; PLATELET COUNT 210 10^3/uL (140-440); RED BLOOD COUNT 3.59 10^6/ul (4.20-5.40)
[2016-11-04 07:43] LABS: ALBUMIN 2.9 g/dL (3.4-5.0); ALBUMIN/GLOBULIN RATIO 1.16; ANION GAP 13.1; BILIRUBIN,TOTAL 0.38 mg/dL (0.00-1.20); BUN/CREATININE RATIO 32.92; CALCIUM 8.1 mg/dL (8.2-10.2); CREATININE 0.82 mg/dL (0.60-1.30); POTASSIUM 4.1 mmol/L (3.5-5.10); TOTAL PROTEIN 5.4 g/dL (5.8-8.1)
[2016-11-04] MEDS: FLONASE NAS SCH (09:11)
[2016-11-04] MEDS: CARDIZEM PO SCH ×2 (09:11→20:32)
[2016-11-04] MEDS: COREG PO SCH ×2 (09:12→16:46)
[2016-11-04] MEDS: ASPIRIN EC PO SCH (09:12)
[2016-11-04] MEDS: LEXAPRO PO SCH (09:12)
[2016-11-04] MEDS: NORVASC PO SCH (09:12)
[2016-11-04] MEDS: ZESTRIL PO SCH ×2 (09:12→20:32)
[2016-11-04] MEDS: TORADOL IM SCH ×2 (09:13→20:32)
[2016-11-04] MEDS: ROCEPHIN 1 GM in SODIUM CHLORIDE 50 ML IV SCH ×2 (09:14→09:21)
[2016-11-04] MEDS: LIBRIUM PO SCH ×2 (09:17→20:32)
[2016-11-04] MEDS ORDERED: LIDOCAINE 1 % AMP 5 ML (SUTURES) IM STA (09:31)
[2016-11-04] MEDS ORDERED: ROCEPHIN IM STA (09:31)
[2016-11-04] MEDS: ZOCOR PO SCH (20:32)
[2016-11-04] MEDS: ATIVAN PO PRN (20:38)
[2016-11-05] MEDS: ULTRAM PO PRN ×2 (02:12→20:11)
[2016-11-05 06:56] LABS: EOSINOPHILS # (AUTO) 0.1 K/ul (0.0-0.7); EOSINOPHILS % (AUTO) 1.6 % (0.0-7.0); HEMATOCRIT 29.2 % (37.0-47.0); HEMOGLOBIN 10.5 g/dl (12.0-16.0); IMMATURE GRANULOCYTE % (AUTO) 0.5 % (0.0-5.0); LYMPHOCYTES # (AUTO) 1.6 K/uL (0.60-3.4); LYMPHOCYTES % (AUTO) 19.7 (10.0-50.0); MEAN CORPUSCULAR HEMOGLOBIN 30.1 pg (27.0-31.0); MEAN CORPUSCULAR VOLUME 83.7 fl (81.0-99.0); MONOCYTES % (AUTO) 12.4 (0-10); NEUTROPHILS # (AUTO) 5.2 K/ul (2.0-6.9); NEUTROPHILS % (AUTO) 65.8; PLATELET COUNT 210 10^3/uL (140-440); RED BLOOD COUNT 3.49 10^6/ul (4.20-5.40); WHITE BLOOD COUNT 7.92 K/ul (4.6-10.2)
[2016-11-05 07:19] LABS: ALBUMIN 2.8 g/dL (3.4-5.0); ALBUMIN/GLOBULIN RATIO 1.12; BILIRUBIN,TOTAL 0.44 mg/dL (0.00-1.20); BUN/CREATININE RATIO 31.25; CALCIUM 8.1 mg/dL (8.2-10.2); CREATININE 0.8 mg/dL (0.60-1.30); TOTAL PROTEIN 5.3 g/dL (5.8-8.1)
[2016-11-05] MEDS: FLONASE NAS SCH (08:39)
[2016-11-05] MEDS: LEXAPRO PO SCH (08:39)
[2016-11-05] MEDS: ASPIRIN EC PO SCH (08:39)
[2016-11-05] MEDS: COREG PO SCH ×2 (08:39→16:35)
[2016-11-05] MEDS: CARDIZEM PO SCH ×2 (08:39→20:10)
[2016-11-05] MEDS: NORVASC PO SCH (08:40)
[2016-11-05] MEDS: ZESTRIL PO SCH ×2 (08:40→20:10)
[2016-11-05] MEDS: KEFLEX PO SCH ×3 (08:40→20:11)
[2016-11-05] MEDS: TORADOL IM SCH ×2 (08:40→20:10)
[2016-11-05] MEDS: LIBRIUM PO SCH ×2 (08:40→20:10)
[2016-11-05] MEDS ORDERED: DECADRON 4 MG/ML SDV IM STA (10:24)
--- NOTE | 2016-11-05 11:22 | DI ---
EXAM: Chest two views CLINICAL INDICATION: Congestion. COMPARISON: October 31. FINDINGS: PA and lateral views of the thorax are provided. There is no interval change. The pulmonary parenchyma is clear and there is no pleural abnormality. The cardiomediastinal silhouette and visualized bony structures are unchanged with multiple surgic al clips within the upper abdomen and left neck. IMPRESSION: No interval change, with no acute pulmonary abnormality.
[2016-11-05] MEDS: DUONEB NEB SCH ×2 (14:04→20:10)
[2016-11-05] MEDS: ZOCOR PO SCH (20:10)
[2016-11-05] MEDS: ATIVAN PO PRN (20:11)
[2016-11-06] MEDS: ULTRAM PO PRN (04:24)
[2016-11-06] MEDS: KEFLEX PO SCH ×3 (04:46→20:47)
[2016-11-06 05:00] LABS: BASOPHILS % (AUTO) 0.1 % (0.0-3.0); HEMATOCRIT 31.8 % (37.0-47.0); HEMOGLOBIN 11.6 g/dl (12.0-16.0); IMMATURE GRANULOCYTE % (AUTO) 1.1 % (0.0-5.0); LYMPHOCYTES # (AUTO) 0.9 K/uL (0.60-3.4); LYMPHOCYTES % (AUTO) 10.3 (10.0-50.0); MEAN CORPUSCULAR HEMOGLOBIN 29.6 pg (27.0-31.0); MEAN CORPUSCULAR HGB CONC 36.5 (31.8-35.4); MEAN CORPUSCULAR VOLUME 81.1 fl (81.0-99.0); MONOCYTES # (AUTO) 0.3 K/uL (0.4-2.0); MONOCYTES % (AUTO) 3.2 (0-10); NEUTROPHILS # (AUTO) 7.2 K/ul (2.0-6.9); NEUTROPHILS % (AUTO) 85.3; PLATELET COUNT 260 10^3/uL (140-440); RED BLOOD COUNT 3.92 10^6/ul (4.20-5.40); WHITE BLOOD COUNT 8.38 K/ul (4.6-10.2)
[2016-11-06] MEDS: DUONEB NEB SCH ×4 (05:05→20:47)
[2016-11-06 05:22] LABS: ALBUMIN/GLOBULIN RATIO 1.07; ANION GAP 15.6; BILIRUBIN,TOTAL 0.55 mg/dL (0.00-1.20); BUN/CREATININE RATIO 22.66; CALCIUM 8.5 mg/dL (8.2-10.2); CREATININE 0.75 mg/dL (0.60-1.30); POTASSIUM 4.6 mmol/L (3.5-5.10); TOTAL PROTEIN 5.8 g/dL (5.8-8.1)
[2016-11-06] MEDS: LEXAPRO PO SCH (08:38)
[2016-11-06] MEDS: FLONASE NAS SCH (08:38)
[2016-11-06] MEDS: ZESTRIL PO SCH ×2 (08:38→20:46)
[2016-11-06] MEDS: NORVASC PO SCH (08:39)
[2016-11-06] MEDS: TORADOL IM SCH ×2 (08:39→20:47)
[2016-11-06] MEDS: LIBRIUM PO SCH ×2 (08:39→20:54)
[2016-11-06] MEDS: COREG PO SCH ×2 (08:39→18:09)
[2016-11-06] MEDS: CARDIZEM PO SCH ×2 (08:39→20:46)
[2016-11-06] MEDS: ASPIRIN EC PO SCH (08:39)
--- NOTE | 2016-11-06 08:54 | ECHO2D ---
Date of Exam: 11/03/16 Ordering Physician: SAGE MCCORMACK Reason for Echo: CORONARY ARTERY DISEASE M-Mode Normal Adult Results LV Dimensions Normal Adult Results AoV Opening excursions >1.6 >1.6 LVEDD-base- 3.5-5.8 4.1 Ao root dimensions 2.0-3.7 3.6 LVESD-base- 3.1-4.6 L. Atrium dimensions 1.9-3.8 4.8 Post. Wall thickness 0.8-1.1 1.1 IV septum (thickness) 0.7-1.2 1.4 Post. Wall excursion 0.72-1.3 NORMAL Septal motion NORMAL Systolic motion R. Ventricular cavity 1.5-2.0 NORMAL LVEF 60% 65% Paradoxical septal wall motion NORMAL 2-D : ENLARGED LEFT ATRIAL CAVITY--NORMAL LEFT VENTRICULAR CONTRACTILITY--NO EFFUSION, NO THROMBUS, NORMAL LEFT VENTRICLE CAVITY--CALCIFIC MITRAL VALVE ANNULUS COLOR FLOW: MILD MITRAL REGURGITATION M-MODE: MV: CALCIFIC MITRAL VALVE ANNULUS AV: NORMAL TV: NORMAL PV: NORMAL CHAMBER SIZE: ENLARGED LEFT ATRIAL CAVITY WALL MOTION: NORMAL PERICARDIUM: NORMAL INTERPRETATION: 1. LEFT VENTRICULAR HYPERTROPHY WITH ENLARGED LEFT ATRIAL CAVITY 2. NORMAL LEFT VENTRICULAR CONTRACTILITY 3. CALCIFIC MITRAL VALVE ANNULUS MTDD
--- NOTE | 2016-11-06 10:58 | PCM.PROG ---
Attending Provider: ATTENDING PROVIDER: Dr. SAGE MCCORMACK DATE OF SERVICE: 11/06/16 SUBJECTIVE: This 81 year old WHITE/ F was hospitalized 10/31/16. The patient is seen with Cheri, Nurse Practitioner. The patient is lying in bed, alert, feeling some better. She states she is ready to go home today. She has been up and about. The patient is still with asymptomatic hyponatremia. REVIEW OF SYSTEMS: CONSTITUTIONAL: Weakness. No night sweats. No fever or chills. HEENT: Eyes: No visual changes. No eye pain. No eye discharge. ENT: Sinus drainage. No epistaxis. No odynophagia. No congestion. RESPIRATORY: No cough, no congestion. No hemoptysis. No shortness of breath. CARDIOVASCULAR: No angina symptoms. No CHF symptoms. No atypical chest pain for CAD. No palpitations. No orthopnea.. GASTROINTESTINAL: No abdominal pain. No nausea or vomiting. No diarrhea or constipation. No hematemesis. No hematochezia. GENITOURINARY: No urgency. No frequency. No dysuria. No hematuria. No obstructive symptoms. No discharge. No pain. No significant abnormal bleeding. MUSCULOSKELETAL: No musculoskeletal pain; no joint swelling. NEUROLOGICAL: Awake, alert, oriented to time, place and person. Positive for headache. No neck pain. No syncope. No seizures. No dizziness. PSYCHIATRIC: Not anxious. No depression. No suicidal thoughts. No homicidal thoughts. SKIN: No rash. No lesions. No wounds. ENDOCRINE: No unexplained weight loss. No weight gain. HEMATOLOGIC/LYMPHATIC: No anemia. No purpura. No petechiae. No prolonged or excessive bleeding. No palpable lymph nodes. PHYSICAL EXAMINATION: GENERAL: The patient is awake, alert and oriented, lying in bed in no distress. VITAL SIGNS: Temperature 97.4 F, Pulse 58, Respiratory Rate 18, BP 128/64, Pulse Ox 99% HEENT: Head normocephalic. Face - positive for mild maxillary sinus tenderness , no redness. Eyes: Extraocular muscles are intact. Pupils are equal, round and reactive to light and accommodation. Ears: No lesions. Nose appeared normal. Throat: No exudate or erythema. NECK: Supple. No JVD, no carotid bruit. No lymphadenopathy or thyromegaly. LUNGS: Equal and clear to auscultation but diminished breath sounds. Percussion note normal. Chest symmetrical. HEART: Regular rate and rhythm. S1, S2, no S3. No murmurs. No cyanosis or clubbing. No ascites. Pulses: Dorsalis pedis and posterior tibial pulses +1 to +2 both sides. ABDOMEN: Soft. Non-tender. Bowel sounds active. No CVA tenderness. No mass felt. EXTREMITIES: No edema. Full range of motion of all extremities, equal. NEUROLOGIC: No focal deficit. Cranial nerves II through XII are grossly intact. No headache, no double vision or headache. SKIN: Not dry. Intact. Turgor-normal. LYMPHATIC: No palpable lymph nodes/no lymphedema. MUSCULOSKELETAL: Normal joints with no swelling. Muscle tone is normal. LAB REVIEW: 11/06/16 04:43 11/06/16 04:43 11/06/16 04:43: WBC 8.38, RBC 3.92 L, Hgb 11.6 L, Hct 31.8 L, MCV 81.1, MCH 29.6 , MCHC 36.5 H, RDW Coeff of Gerald 12.7, Plt Count 260, Immature Gran % (Auto) 1.1 , Neut % (Auto) 85.3, Lymph % (Auto) 10.3, [place] % (Auto) 3.2, Eos % (Auto) 0.0, Baso % (Auto) 0.1, Immature Gran # (Auto) 0.1, Neut # 7.2 H, Lymph # 0.9, [place] # 0.3 L, Eos # 0.0, Baso # 0.0, Sodium 125 L, Potassium 4.6, Chloride 90 L, Carbon Dioxide 24, Anion Gap 15.6, BUN 17, Creatinine 0.75, Estimated GFR (MDRD ) 74.00, BUN/Creatinine Ratio 22.66, Glucose 149 H D, Calcium 8.5, Total Bilirubin 0.55, AST 15, ALT 19, Alkaline Phosphatase 78, Total Protein 5.8, Albumin 3.0 L, Globulin 2.8, Albumin/Globulin Ratio 1.07 ASSESSMENT: 1. Acute UTI, E. coli 2. Left periorbital cellulitis, resolved 3. Acute sinsutis 4. Headache PLAN: 1. Will hold discharge today for hyponatremia 2. Keflex 500 mg t.i.d. for 7 days 3. Prednisone 10 b.i.d. for 5 days 4. Continue nasal spray flonase daily Plan and coordination of the patient's care discussed in the presence of Magazine Grinder Loader and nurse. CONDITION: Stable SCRIBED BY: NEIL LITTLE Project Manager scribed while in presence of service performed by Dr. SAGE MCCORMACK/CHERI VALDIVIA APRN on 11/06/16 ([id number])
[2016-11-06] MEDS: ATIVAN PO PRN (20:46)
[2016-11-06] MEDS: ZOCOR PO SCH (20:46)
[2016-11-07] MEDS: KEFLEX PO SCH (04:55)
[2016-11-07 05:05] VITALS: BP 129/65; TEMP 97.1
[2016-11-07 05:13] LABS: BASOPHILS % (AUTO) 0.2 % (0.0-3.0); EOSINOPHILS % (AUTO) 0.4 % (0.0-7.0); HEMATOCRIT 34.7 % (37.0-47.0); HEMOGLOBIN 12.6 g/dl (12.0-16.0); IMMATURE GRANULOCYTE % (AUTO) 2.2 % (0.0-5.0); LYMPHOCYTES % (AUTO) 21.1 (10.0-50.0); MEAN CORPUSCULAR HEMOGLOBIN 29.6 pg (27.0-31.0); MEAN CORPUSCULAR HGB CONC 36.3 (31.8-35.4); MEAN CORPUSCULAR VOLUME 81.6 fl (81.0-99.0); MONOCYTES % (AUTO) 9.9 (0-10); NEUTROPHILS # (AUTO) 6.4 K/ul (2.0-6.9); NEUTROPHILS % (AUTO) 66.2; PLATELET COUNT 281 10^3/uL (140-440); RED BLOOD COUNT 4.25 10^6/ul (4.20-5.40); WHITE BLOOD COUNT 9.61 K/ul (4.6-10.2)
[2016-11-07] MEDS: DUONEB NEB SCH ×2 (05:25→10:15)
[2016-11-07 05:29] LABS: ALBUMIN 3.3 g/dL (3.4-5.0); ALBUMIN/GLOBULIN RATIO 1.1; ANION GAP 11.7; BILIRUBIN,TOTAL 0.56 mg/dL (0.00-1.20); BUN/CREATININE RATIO 21.42; CREATININE 0.84 mg/dL (0.60-1.30); POTASSIUM 4.7 mmol/L (3.5-5.10); TOTAL PROTEIN 6.3 g/dL (5.8-8.1)
[2016-11-07] MEDS: COREG PO SCH (08:13)
[2016-11-07] MEDS: ASPIRIN EC PO SCH (08:13)
[2016-11-07] MEDS: NORVASC PO SCH (08:48)
[2016-11-07] MEDS: CARDIZEM PO SCH (08:48)
[2016-11-07] MEDS: FLONASE NAS SCH (08:48)
[2016-11-07] MEDS: LIBRIUM PO SCH (08:49)
[2016-11-07] MEDS: ZESTRIL PO SCH (08:49)
[2016-11-07] MEDS: TORADOL IM SCH (08:49)
[2016-11-07] MEDS: LEXAPRO PO SCH (08:49)
--- NOTE | 2016-11-07 09:17 | PN ---
DATE OF SERVICE: 11/02/16 SUBJECTIVE: The patient is an 81 year old female hospitalized with facial cellulitis, acute sinusitis and dehydration. The patient's condition is improved and she is feeling a lot better. She doesn't have any headache. REVIEW OF SYSTEMS: CONSTITUTIONAL: No night sweats. No fatigue, malaise, lethargy. No fever or chills. HEENT: Eyes: No visual changes. No eye pain. No eye discharge. ENT: No runny nose. No epistaxis. No sinus pain. No sore throat. No odynophagia. No congestion. RESPIRATORY: No cough, no congestion. No hemoptysis. No shortness of breath. CARDIOVASCULAR: No angina symptoms. No CHF symptoms. No atypical chest pain for CAD. No palpitations. No orthopnea. GASTROINTESTINAL: No abdominal pain. No nausea or vomiting. No diarrhea or constipation. No hematemesis. No hematochezia. GENITOURINARY: No urgency. No frequency. No dysuria. No hematuria. No obstructive symptoms. No discharge. No pain. No significant abnormal bleeding. MUSCULOSKELETAL: No musculoskeletal pain; no joint swelling. NEUROLOGICAL: No headache. No neck pain. No syncope. No seizures. No dizziness. PSYCHIATRIC: Not anxious. No depression. No suicidal thoughts. No homicidal thoughts. SKIN: No rash. No lesions. No wounds. ENDOCRINE: No unexplained weight loss. No weight gain. HEMATOLOGIC/LYMPHATIC: No anemia. No purpura. No petechiae. No prolonged or excessive bleeding. No palpable lymph nodes. PHYSICAL EXAMINATION: GENERAL: The patient is. VITAL SIGNS: Stable with temperature 97.8, pulse 60, respiratory rate 22, blood pressure 137/64 and pulse ox 94%. HEENT: Head normocephalic, atraumatic. Eyes: The swelling of the periorbital area is subsided. Extraocular muscles are intact. Pupils are equal, round and reactive to light and accommodation. Ears: No lesions. Nose appeared normal. Throat: No exudate or erythema. NECK: Supple. No JVD, no carotid bruit. No lymphadenopathy or thyromegaly. LUNGS: Clear to auscultation. Percussion note normal. Chest symmetrical. HEART: S1, S2, no S3. No murmurs. No cyanosis or clubbing. No ascites. Pulses: Dorsalis pedis and posterior tibial pulses +1 to +2 both sides. ABDOMEN: Soft. Nontender. Bowel sounds active. No CVA tenderness. No mass felt. EXTREMITIES: No edema. Full range of motion of all extremities, equal. NEUROLOGIC: No focal deficit. Cranial nerves II through XII are grossly intact. No headache, no double vision or headache. SKIN: Not dry. Intact. Turgor - normal. LYMPHATIC: No palpable lymph nodes/no lymphedema. MUSCULOSKELETAL: Normal joints with no swelling. Muscle tone is normal. ASSESSMENT: 1. Acute cellulitis and facial cellulitis, condition improving. PLAN: 1. Discontinue Levaquin 2. Put patient on Rocephin 1 gram 24 3. 4mg Decadron IM to be given CONDITION: Stable. TIME SPENT: More than 30 minutes. Plan and coordination of the patient's care discussed in the presence of nurse. ALEXUS
--- NOTE | 2016-11-07 09:45 | PN ---
DATE OF SERVICE: 11/03/16 SUBJECTIVE: The patient is an 81 year old white female been treated with periorbital cellulitis, acute sinusitis and generalized fatigue and also has dehydration. The patient's condition has steadily improved. This morning she is feeling better and practically the headache has subsided. REVIEW OF SYSTEMS: CONSTITUTIONAL: No night sweats. No fatigue, malaise, lethargy. No fever or chills. HEENT: Eyes: No visual changes. No eye pain. No eye discharge. ENT: No runny nose. No epistaxis. No sinus pain. No sore throat. No odynophagia. No congestion. RESPIRATORY: No cough, no congestion. No hemoptysis. Shortness of breath on minimal exertion. CARDIOVASCULAR: No angina symptoms. No CHF symptoms. No atypical chest pain for CAD. No palpitations. No orthopnea. No PND. GASTROINTESTINAL: No abdominal pain. No nausea or vomiting. No diarrhea or constipation. No hematemesis. No hematochezia. Appetite has improved. GENITOURINARY: No urgency. No frequency. No dysuria. No hematuria. No obstructive symptoms. No discharge. No pain. No significant abnormal bleeding. MUSCULOSKELETAL: No musculoskeletal pain; no joint swelling. NEUROLOGICAL: No headache. No neck pain. No syncope. No seizures. No dizziness. PSYCHIATRIC: Not anxious. No depression. No suicidal thoughts. No homicidal thoughts. SKIN: No rash. No lesions. No wounds. ENDOCRINE: No unexplained weight loss. No weight gain. HEMATOLOGIC/LYMPHATIC: No anemia. No purpura. No petechiae. No prolonged or excessive bleeding. No palpable lymph nodes. PHYSICAL EXAMINATION: GENERAL: The patient seems to be oriented to time, place and person. VITAL SIGNS: Temperature 97, pulse 66, respiratory rate 16, blood pressure 126/ 70 and pulse ox 94%. HEENT: Head normocephalic, atraumatic. Eyes: Extraocular muscles are intact. Pupils are equal, round and reactive to light and accommodation. Ears: No lesions. Nose appeared normal. Throat: No exudate or erythema. NECK: Supple. No JVD, no carotid bruit. No lymphadenopathy or thyromegaly. LUNGS: Decreased breath sounds but clear to auscultation. Percussion note normal. Chest symmetrical. HEART: S1, S2, no S3. No murmurs. No cyanosis or clubbing. No ascites. Pulses: Dorsalis pedis and posterior tibial pulses +1 to +2 both sides. ABDOMEN: Soft. Nontender. Bowel sounds active. No CVA tenderness. No mass felt. EXTREMITIES: No edema. Full range of motion of all extremities, equal. NEUROLOGIC: No focal deficit. Cranial nerves II through XII are grossly intact. No headache, no double vision or headache. SKIN: Not dry. Intact. Turgor - normal. LYMPHATIC: No palpable lymph nodes/no lymphedema. MUSCULOSKELETAL: Normal joints with no swelling. Muscle tone is normal. LABS: Hgb 10.9, hct 30.8, WBC 8,100 normal differential, creatinine 0.8, BUN 26, potassium 4.5, sodium 126. ASSESSMENT: 1. Sinusitis 2. Cellulitis practically resolved 3. UTI, pending but being treated PLAN: 1. Continue antibiotics 2. Encourage the patient to eat 3. Advised to cut down on water drinking in excess. The patient was seen and examined in the presence of the Nurse Practitioner. TIME SPENT: More than 30 minutes. Plan and coordination of the patient's care discussed in the presence of nurse. ALEXUS
--- NOTE | 2016-11-07 09:49 | CM.DICTOOL ---
ADMISSION: 10/31/16 11:59 DISCHARGE: November 07, 2016 DATE OF SERVICE: 11/07/16 FINAL DIAGNOSIS Periorbital Cellulitis Acute Sinusitis Acute Bronchitis Dehydration Hyponatremia Hypertension LVH CAD with Stent Application COPD Pagets Disease Anemia Cataract Extraction Esophageal Repair Colon Resection Cholecystectomy Hysterectomy Carotid Endarterectomy LAST VITALS Temp Pulse Resp BP Pulse Ox 97.1 F L 66 20 129/65 97 11/07/16 05:05 11/07/16 05:05 11/07/16 05:05 11/07/16 05:05 11/07/16 05:05 ACTIVE HOME MEDICATIONS Amlodipine Besylate (Norvasc) 10 mg PO DAILY [facility] Last Admin: 11/07/16 08:48 Dose: 10 mg Aspirin (Aspirin Ec) 81 mg PO DAILYWM [facility] Last Admin: 11/07/16 08:13 Dose: 81 mg Carvedilol (Coreg) 6.25 mg PO BIDWM [facility] Last Admin: 11/07/16 08:13 Dose: 6.25 mg Chlordiazepoxide HCl (Librium) 10 mg PO BID [facility] Last Admin: 11/07/16 08:49 Dose: 10 mg Diltiazem HCl (Cardizem) 60 mg PO Q12HR [facility] Last Admin: 11/07/16 08:48 Dose: 60 mg Escitalopram Oxalate (Lexapro) 20 mg PO DAILY [facility] Last Admin: 11/07/16 08:49 Dose: 20 mg Lisinopril (Zestril) 20 mg PO BID [facility] Last Admin: 11/07/16 08:49 Dose: 20 mg Lorazepam (Ativan) 0.5 mg PO BID PRN PRN Reason: Anxiety Last Admin: 11/06/16 20:46 Dose: 0.5 mg Meclizine HCl (Antivert) 12.5 mg PO BID PRN PRN Reason: Dizziness Simvastatin (Zocor) 40 mg PO BEDTIME [facility] Last Admin: 11/06/16 20:46 Dose: 40 mg ALLERGIES clarithromycin [From Biaxin] Adverse Reaction (Verified 07/11/15 10:03) Penicillins Adverse Reaction (Verified 05/25/15 18:54) Sulfa (Sulfonamide Antibiotics) Adverse Reaction (Verified 05/25/15 18:55) NEW PRESCRIPTIONS: Keflex 500 mg Q 8 hours for 7 days Prednisone 10 mg daily for 5 days Flonase 2 Sprays both nostrils daily SMOKING: Not Applicable DISEASE SPECIFIC EDUCATION: Sinusitis Nutrition Medications, specifically use of oral steroid and nasal spray Appointment LAB REVIEW: 11/07/16 05:05 11/07/16 05:05 11/07/16 05:05: WBC 9.61, RBC 4.25, Hgb 12.6, Hct 34.7 L, MCV 81.6, MCH 29.6, MCHC 36.3 H, RDW Coeff of Gerald 13.0, Plt Count 281, Immature Gran % (Auto) 2.2, Neut % (Auto) 66.2, Lymph % (Auto) 21.1, [place] % (Auto) 9.9, Eos % (Auto) 0.4, Baso % (Auto) 0.2, Immature Gran # (Auto) 0.2, Neut # 6.4, Lymph # 2.0, [place] # 1.0, Eos # 0.0, Baso # 0.0, Sodium 125 L, Potassium 4.7, Chloride 91 L, Carbon Dioxide 27, Anion Gap 11.7, BUN 18, Creatinine 0.84, Estimated GFR (MDRD) 65.00 , BUN/Creatinine Ratio 21.42, Glucose 113, Calcium 9.0, Total Bilirubin 0.56, AST 14 L, ALT 17, Alkaline Phosphatase 79, Total Protein 6.3, Albumin 3.3 L, Globulin 3.0, Albumin/Globulin Ratio 1.10 PLAN: Discharge home Diet: Regular as tolerated Activity: Resume as tolerated Resume medications as listed on nursing discharge information sheet An appointment is scheduled with Cheri Zaragoza APRN on November 10, 2016 at 11 am Ms Villavicencio is alert and oriented x 3. She is independent with ADL's and has ambulated in the hallways with the nursing staff or her family. She has used intermittently an assistive device of a walker while in the hospital. Meal intakes have been fair at 25-50%. She denies abdominal pain or nausea. No facial redness or swelling noted. No decubitus ulcers, rashes or irritation noted. Lele Biswas MD Cheri Zaragoza APRN
--- NOTE | 2016-11-07 09:51 | PN ---
DATE OF SERVICE: 11/04/16 SUBJECTIVE: The patient's doing well and she has no headache anymore. REVIEW OF SYSTEMS: CONSTITUTIONAL: No night sweats. No fatigue, malaise, lethargy. No fever or chills. HEENT: Eyes: No visual changes. No eye pain. No eye discharge. ENT: No runny nose. No epistaxis. No sinus pain. No sore throat. No odynophagia. No congestion. RESPIRATORY: No cough, no congestion. No hemoptysis. No shortness of breath. CARDIOVASCULAR: No angina symptoms. No CHF symptoms. No atypical chest pain for CAD. No palpitations. No orthopnea. GASTROINTESTINAL: No abdominal pain. No nausea or vomiting. No diarrhea or constipation. No hematemesis. No hematochezia. GENITOURINARY: No urgency. No frequency. No dysuria. No hematuria. No obstructive symptoms. No discharge. No pain. No significant abnormal bleeding. MUSCULOSKELETAL: No musculoskeletal pain; no joint swelling. NEUROLOGICAL: No headache. No neck pain. No syncope. No seizures. No dizziness. PSYCHIATRIC: Not anxious. No depression. No suicidal thoughts. No homicidal thoughts. SKIN: No rash. No lesions. No wounds. ENDOCRINE: No unexplained weight loss. No weight gain. HEMATOLOGIC/LYMPHATIC: No anemia. No purpura. No petechiae. No prolonged or excessive bleeding. No palpable lymph nodes. PHYSICAL EXAMINATION: GENERAL: The patient is oriented to time, place and person. HEENT: Head normocephalic, atraumatic. Eyes: Extraocular muscles are intact. Pupils are equal, round and reactive to light and accommodation. Ears: No lesions. Nose appeared normal. Throat: No exudate or erythema. NECK: Supple. No JVD, no carotid bruit. No lymphadenopathy or thyromegaly. LUNGS: Clear to auscultation. Percussion note normal. Chest symmetrical. HEART: S1, S2, no S3. No murmurs. No cyanosis or clubbing. No ascites. Pulses: Dorsalis pedis and posterior tibial pulses +1 to +2 both sides. ABDOMEN: Soft. Nontender. Bowel sounds active. No CVA tenderness. No mass felt. EXTREMITIES: No edema. Full range of motion of all extremities, equal. NEUROLOGIC: No focal deficit. Cranial nerves II through XII are grossly intact. No headache, no double vision or headache. SKIN: Not dry. Intact. Turgor - normal. LYMPHATIC: No palpable lymph nodes/no lymphedema. MUSCULOSKELETAL: Normal joints with no swelling. Muscle tone is normal. ASSESSMENT: 1. Acute sinusitis 2. Cellulitis has resolved 3. UTI seems to be under control PLAN: 1. Continue the same antibiotics The patient was seen with Nurse Practitioner. TIME SPENT: More than 30 minutes. Plan and coordination of the patient's care discussed in the presence of nurse. ALEXUS
--- NOTE | 2016-11-07 10:17 | PCM.PROG ---
Attending Provider: ATTENDING PROVIDER: Dr. SAGE MCCORMACK DATE OF SERVICE: 11/07/16 SUBJECTIVE: This 81 year old WHITE/ F was hospitalized 10/31/16. The patient is seen with Cheri, Nurse Practitioner. The patient is alert, lying in bed and is ready go home. Sodium 125, asymptomatic. REVIEW OF SYSTEMS: CONSTITUTIONAL: Fatigue. No night sweats. No fever or chills. HEENT: Eyes: No visual changes. No eye pain. No eye discharge. ENT: Nasal congestion. No epistaxis. Sinus tenderness. No odynophagia. RESPIRATORY: No cough, no congestion. No hemoptysis. No shortness of breath. CARDIOVASCULAR: No angina symptoms. No CHF symptoms. No atypical chest pain for CAD. No palpitations. No orthopnea.. GASTROINTESTINAL: No abdominal pain. No nausea or vomiting. No diarrhea or constipation. No hematemesis. No hematochezia. GENITOURINARY: No urgency. No frequency. No dysuria. No hematuria. No obstructive symptoms. No discharge. No pain. No significant abnormal bleeding. MUSCULOSKELETAL: No musculoskeletal pain; no joint swelling. NEUROLOGICAL: Awake, alert, oriented to time, place and person. No headache. No neck pain. No syncope. No seizures. No dizziness. PSYCHIATRIC: Not anxious. No depression. No suicidal thoughts. No homicidal thoughts. SKIN: No rash. No lesions. No wounds. ENDOCRINE: No unexplained weight loss. No weight gain. HEMATOLOGIC/LYMPHATIC: No anemia. No purpura. No petechiae. No prolonged or excessive bleeding. No palpable lymph nodes. PHYSICAL EXAMINATION: GENERAL: The patient is awake, alert and oriented, lying in bed in no distress. VITAL SIGNS: Temperature 97.1 F, Pulse 66, Respiratory Rate 20, BP 129/65, Pulse Ox 97% HEENT: Head normocephalic. Face: Maxillary sinus tenderness, no redness. Eyes : Extraocular muscles are intact. Pupils are equal, round and reactive to light and accommodation. Ears: No lesions. Nose appeared normal. Throat: No exudate or erythema. NECK: Supple. No JVD, no carotid bruit. No lymphadenopathy or thyromegaly. LUNGS: Diminished breath sounds bilaterally, clear to auscultation. Percussion note normal. Chest symmetrical. HEART: S1, S2, no S3. No murmurs. No cyanosis or clubbing. No ascites. Pulses: Dorsalis pedis and posterior tibial pulses +1 to +2 both sides. ABDOMEN: Soft. Non-tender. Bowel sounds active. No CVA tenderness. No mass felt. EXTREMITIES: No edema. Full range of motion of all extremities, equal. NEUROLOGIC: No focal deficit. Cranial nerves II through XII are grossly intact. No headache, no double vision or headache. SKIN: Not dry. Intact. Turgor-normal. LYMPHATIC: No palpable lymph nodes/no lymphedema. MUSCULOSKELETAL: Normal joints with no swelling. Muscle tone is normal. LAB REVIEW: 11/07/16 05:05 11/07/16 05:05 11/07/16 05:05: WBC 9.61, RBC 4.25, Hgb 12.6, Hct 34.7 L, MCV 81.6, MCH 29.6, MCHC 36.3 H, RDW Coeff of Gerald 13.0, Plt Count 281, Immature Gran % (Auto) 2.2, Neut % (Auto) 66.2, Lymph % (Auto) 21.1, [place] % (Auto) 9.9, Eos % (Auto) 0.4, Baso % (Auto) 0.2, Immature Gran # (Auto) 0.2, Neut # 6.4, Lymph # 2.0, [place] # 1.0, Eos # 0.0, Baso # 0.0, Sodium 125 L, Potassium 4.7, Chloride 91 L, Carbon Dioxide 27, Anion Gap 11.7, BUN 18, Creatinine 0.84, Estimated GFR (MDRD) 65.00 , BUN/Creatinine Ratio 21.42, Glucose 113, Calcium 9.0, Total Bilirubin 0.56, AST 14 L, ALT 17, Alkaline Phosphatase 79, Total Protein 6.3, Albumin 3.3 L, Globulin 3.0, Albumin/Globulin Ratio 1.10 ASSESSMENT: 1. Acute UTI, E. coli 2. Hyponatremia 3. Left periorbital cellulitis, resolved 4. Acute sinsutis 5. Headache PLAN: 1. Discharge home today. 2. To be seen in followup at Dr. Mccormack's office on Sunday with CMP prior to visit. 3. Keflex 500 mg q.8 times 7 days. 4. Prednisone 10 mg once a day for 5 days. 5. Continue Flonase two sprays to nares daily. Plan and coordination of the patient's care discussed in the presence of Insurance Premium Auditor and nurse. CONDITION: Stable SCRIBED BY: NEIL LITTLE Certified Nurse scribed while in presence of service performed by Dr. SAGE MCCORMACK/CHERI VALDIVIA APRN on 11/07/16 ([id number])
--- NOTE | 2016-11-16 10:06 | PN ---
DATE OF SERVICE: 11/05/16 The patient was also seen by the nurse practitioner. SUBJECTIVE: The patient's symptoms of sinusitis and cellulitis has subsided. Cardiac rhythm is normal. She has had mild cough, so she is on NEBS. PHYSICAL EXAMINATION: HEENT: Head normocephalic, atraumatic. Eyes: Extraocular muscles are intact. Pupils are equal, round and reactive to light and accommodation. Ears: No lesions. Nose appeared normal. Throat: No exudate or erythema. NECK: Supple. No JVD, no carotid bruit. No lymphadenopathy or thyromegaly. LUNGS: Clear to auscultation. Percussion note normal. Chest symmetrical. HEART: S1, S2, no S3. No murmurs. No cyanosis or clubbing. No ascites. Pulses: Dorsalis pedis and posterior tibial pulses +1 to +2 both sides. ABDOMEN: Soft. Nontender. Bowel sounds active. No CVA tenderness. No mass felt. EXTREMITIES: No edema. Full range of motion of all extremities, equal. NEUROLOGIC: No focal deficit. Cranial nerves II through XII are grossly intact. No headache, no double vision or headache. SKIN: Not dry. Intact. Turgor - normal. LYMPHATIC: No palpable lymph nodes/no lymphedema. MUSCULOSKELETAL: Normal joints with no swelling. Muscle tone is normal. CONDITION: Stable. TIME SPENT: More than 30 minutes. Plan and coordination of the patient's care discussed in the presence of nurse. ALEXUS
--- NOTE | 2016-11-16 10:14 | PN ---
DATE OF SERVICE: 11/06/16 SUBJECTIVE: The patient was admitted with acute sinusitis and periorbital cellulitis. The patient's condition has improved. Her other problem is hyponatremia, which is with a sodium of 135. She is feeling a lot better and wants to go home. There is going to be fluid restriction and the IV fluids have been discontinued since Sunday. PHYSICAL EXAMINATION: HEENT: Face looks symmetrical and no edema noted on periorbital area. Head normocephalic, atraumatic. Eyes: Extraocular muscles are intact. Pupils are equal, round and reactive to light and accommodation. Ears: No lesions. Nose appeared normal. Throat: No exudate or erythema. NECK: Supple. No JVD, no carotid bruit. No lymphadenopathy or thyromegaly. LUNGS: Clear to auscultation. Percussion note normal. Chest symmetrical. HEART: S1, S2, no S3. No murmurs. No cyanosis or clubbing. No ascites. Pulses: Dorsalis pedis and posterior tibial pulses +1 to +2 both sides. ABDOMEN: Soft. Nontender. Bowel sounds active. No CVA tenderness. No mass felt. EXTREMITIES: No edema. Full range of motion of all extremities, equal. NEUROLOGIC: No focal deficit. Cranial nerves II through XII are grossly intact. No headache, no double vision or headache. SKIN: Not dry. Intact. Turgor - normal. LYMPHATIC: No palpable lymph nodes/no lymphedema. MUSCULOSKELETAL: Normal joints with no swelling. Muscle tone is normal. ASSESSMENT: 1. SINUSITIS AND PERIORBITAL CELLULITIS IS ALL RESOLVED 2. NEW PROBLEM IS HYPONATREMIA PLAN: Restrict the fluid intake. The patient's sodium is found to be going up. We can discharge this patient home safely. CONDITION: Stable. The patient was seen with the nurse practitioner. TIME SPENT: More than 30 minutes. Plan and coordination of the patient's care discussed in the presence of nurse. ALEXUS
--- NOTE | 2016-11-16 10:22 | PN ---
DATE OF SERVICE: 11/07/16 The patient was seen with the nurse practitioner. SUBJECTIVE: 89 year old white female hospitalized with periorbital cellulitis and acute sinusitis. The patient's condition has steadily improved with antibiotics and steroids. She is up and about and wants to go home. Her sodium is staying at 125. The patient is advised not to take excess amount of fluids. The hyponatremia seems to be from excessive water drinking. She is not on any diuretic. PHYSICAL EXAMINATION: GENERAL: The patient is in no distress. VITAL SIGNS: Temperature 97.1, pulse 66, respiratory rate 20, blood pressure 129/65, pulse ox 97%. HEENT: Head normocephalic, atraumatic. Eyes: Extraocular muscles are intact. Pupils are equal, round and reactive to light and accommodation. Ears: No lesions. Nose appeared normal. Throat: No exudate or erythema. NECK: Supple. No JVD, no carotid bruit. No lymphadenopathy or thyromegaly. LUNGS: Decreased breath sounds, but clear. Percussion note normal. Chest symmetrical. HEART: S1, S2, no S3. No murmurs. No cyanosis or clubbing. No ascites. Pulses: Dorsalis pedis and posterior tibial pulses +1 to +2 both sides. ABDOMEN: Soft. Nontender. Bowel sounds active. No CVA tenderness. No mass felt. EXTREMITIES: No edema. Full range of motion of all extremities, equal. NEUROLOGIC: No focal deficit. Cranial nerves II through XII are grossly intact. No headache, no double vision or headache. SKIN: Not dry. Intact. Turgor - normal. LYMPHATIC: No palpable lymph nodes/no lymphedema. MUSCULOSKELETAL: Normal joints with no swelling. Muscle tone is normal. ASSESSMENT: ACUTE SINUSITIS, BRONCHITIS AND PERIORBITAL CELLULITIS ALL SEEM TO HAVE RESOLVED OR ARE RESOLVING. PLAN: 1. The patient will be discharged home on Keflex and Prednisone. 2. I will see the patient back on Sunday. TIME SPENT: More than 30 minutes. Plan and coordination of the patient's care discussed in the presence of nurse. ALEXUS
--- NOTE | 2016-11-16 10:25 | PN ---
10/31/16 LEVEL 5 11/01/16 INTERMEDIATE 11/02/16 INTERMEDIATE 11/03/16 INTERMEDIATE 11/04/16 INTERMEDIATE 11/05/16 BRIEF 11/06/16 DISCHARGE MTDD
--- NOTE | 2016-11-23 13:28 | PN ---
DATE OF SERVICE: 11/04/16 SUBJECTIVE: The patient was examined while sitting up in bed. She stated she had already been up in the chair this morning. She was feeling some better. Her facial swelling had improved. Her tenderness had improved and she reported that her headache was less severe and less frequent. She did have a positive urine culture which is positive for E. coli and sensitive to Cephalosporin so will continue with the third dose of Rocephin today 1 gm. Sodium has also improved today, is 129 up from 126 after stopping IV fluids. REVIEW OF SYSTEMS: CONSTITUTIONAL: Positive for fatigue. No night sweats. No fever or chills. HEENT: Headache improved. Positive for sinus congestion, drainage. RESPIRATORY: Minor cough. No shortness of breath. CARDIOVASCULAR: No chest pain. No orthopnea. GASTROINTESTINAL: No nausea, vomiting or diarrhea. GENITOURINARY: No hematuria, no dysuria. MUSCULOSKELETAL: Positive for mild weakness. NEUROLOGICAL: Intact. PSYCHIATRIC: Not anxious. No depression. No suicidal thoughts. No homicidal thoughts. SKIN: No rash. No lesions. No wounds. ENDOCRINE: No unexplained weight loss. No weight gain. HEMATOLOGIC/LYMPHATIC: No anemia. No purpura. No petechiae. No prolonged or excessive bleeding. No palpable lymph nodes. PHYSICAL EXAMINATION: HEENT: Head normocephalic, atraumatic. Eyes: Extraocular muscles are intact. Pupils are equal, round and reactive to light and accommodation. Ears: No lesions. Nose appeared normal. Throat: No exudate or erythema. NECK: Supple. No JVD, no carotid bruit. No lymphadenopathy or thyromegaly. LUNGS: Clear with diminished breath sounds bilaterally. Clear and equal bilaterally. Percussion note normal. Chest symmetrical. HEART: Regular rate and rhythm with no murmurs, clicks or rubs. S1, S2, no S3. ABDOMEN: Soft. Nontender. Bowel sounds active times four quadrants. No CVA tenderness. No mass felt. EXTREMITIES: No clubbing, no cyanosis. No joint swelling. No redness, no calf tenderness, no edema. NEUROLOGIC: She is alert and oriented to person, place and time. SKIN: There is no longer any redness around the left periorbital area. She does have some maxillary tenderness, which has improved. The maxillary sinus is no longer swollen. She is significantly improved. LYMPHATIC: No palpable lymph nodes/no lymphedema. MUSCULOSKELETAL: Normal joints with no swelling. Muscle tone is normal. ASSESSMENT: 1. LEFT PERIORBITAL CELLULITIS WHICH HAS RESOLVED 2. ACUTE SINUSITIS WHICH IS IMPROVING 3. HEADACHE WHICH IS IMPROVING 4. UTI WHICH WE ARE TREATING 5. HYPONATREMIA WHICH IS IMPROVING PLAN: 1. Will do one more dose of IM Rocephin 1 gm today. Tomorrow we will start Keflex p.o. 500 mg t.i.d. 2. Will continue with discontinued IV fluids and continue to monitor sodium in order so that it should increase tomorrow 3. Encouraged her to eat as much as she would like today and to get up and about and walk TIME SPENT: More than 30 minutes. Plan and coordination of the patient's care discussed in the presence of nurse. ALEXUS
--- NOTE | 2016-11-23 14:27 | PN ---
DATE OF SERVICE: 11/05/16 SUBJECTIVE: The patient states she is feeling better today. She has cough some. She has been up and about walking with the assistance of a walker since yesterday. Her headache is gone. She has been afebrile. She has developed somewhat of a cough. REVIEW OF SYSTEMS: CONSTITUTIONAL: Positive for fatigue, weakness. No night sweats. No fever or chills. HEENT: Positive for headache, which is improving. Sinus drainage. No sore throat. No odynophagia. No congestion. RESPIRATORY: Positive for cough. No hemoptysis. No shortness of breath. CARDIOVASCULAR: No angina symptoms. No CHF symptoms. No atypical chest pain for CAD. No palpitations. No orthopnea. GASTROINTESTINAL: No abdominal pain. No nausea or vomiting. No diarrhea or constipation. No hematemesis. No hematochezia. GENITOURINARY: No hematuria, no dysuria. No obstructive symptoms. No discharge. No pain. No significant abnormal bleeding. MUSCULOSKELETAL: Positive for leg weakness. NEUROLOGICAL: Intact. PSYCHIATRIC: Not anxious. No depression. No suicidal thoughts. No homicidal thoughts. SKIN: No rash. No lesions. No wounds. ENDOCRINE: No unexplained weight loss. No weight gain. HEMATOLOGIC/LYMPHATIC: No anemia. No purpura. No petechiae. No prolonged or excessive bleeding. No palpable lymph nodes. PHYSICAL EXAMINATION: VITAL SIGNS: Have been normal. Temperature 98.2, pulse 55, respirations 16, BP 110/60, pulse ox 93%. HEENT: Head normocephalic, atraumatic. The patient does have bilateral maxillary sinus tenderness which is significantly improved. No longer any swelling. No redness. NECK: Supple. No JVD, no carotid bruit. No lymphadenopathy or thyromegaly. LUNGS: Now has some diminished breath sounds with bilateral rhonchi. Percussion note normal. Chest symmetrical. HEART: S1, S2, no S3. No murmurs, clicks or rubs. No cyanosis or clubbing. No ascites. Pulses: Dorsalis pedis and posterior tibial pulses +1 to +2 both sides. ABDOMEN: Soft. Nontender. Bowel sounds active times four quadrants. No CVA tenderness. No mass felt. EXTREMITIES: No clubbing, no cyanosis. No joint swelling. NEUROLOGIC: The patient is oriented. SKIN: Warm and dry. Intact. Turgor - normal. LYMPHATIC: No palpable lymph nodes/no lymphedema. MUSCULOSKELETAL: Normal joints with no swelling. Muscle tone is normal. LABS: Sodium seems to be up and down; yesterday was 129, today 126. Potassium steady at 4.0. Kidney function is normal. BUN 25, creatinine 0.8. Hemoglobin 10.5 which is steady. Hematocrit 29.2. White count 7.9, platelets 210. ASSESSMENT: 1. LEFT PERIORBITAL CELLULITIS WHICH HAS RESOLVED. 2. ACUTE SINUSITIS WHICH IS IMPROVING. 3. HYPONATREMIA. 4. COUGH. PLAN: 1. We will start Duonebs t.i.d. 2. Chest x-ray today. 3. Decadron 4 mg IM today. 4. Continue Keflex 500 mg p.o. which was started today after finishing three days of Rocephin. 5. It was brought to my attention that the patient has also restarted smoking. Smoking cessation education was provided. TIME SPENT: More than 30 minutes. Plan and coordination of the patient's care discussed in the presence of nurse. ALEXUS
--- NOTE | 2016-11-24 14:50 | DS ---
DATE OF SERVICE: 11/07/16 FINAL DIAGNOSIS: 1. PERIORBITAL CELLULITIS 2. ACUTE SINUSITIS 3. ACUTE BRONCHITIS 4. DEHYDRATION 5. HYPONATREMIA 6. HYPERTENSION 7. LVH 8. CAD WITH STENT APPLICATION 9. COPD 10. PAGET'S DISEASE 11. ANEMIA 12. CATARACT EXTRACTION 13. ESOPHAGEAL REPAIR 14. COLON RESECTION 15. CHOLECYSTECTOMY 16. HYSTERECTOMY 17. CAROTID ENDARTERECTOMY DISCHARGE INSTRUCTIONS: Followup appointment has been scheduled with Cheri Zaragoza APRN on 11/10/16 at 11 a.m. MEDICATIONS AT DISCHARGE: Simvastatin 40 mg p.o. daily Ativan 0.5 mg p.o. b.i.d. p.r.n. Carvedilol 6.25 mg p.o. b.i.d. Lisinopril 20 mg p.o. b.i.d. Amlodipine 10 mg p.o. daily Escitalopram 20 mg p.o. daily Cardizem 60 mg p.o. q.12hr Meclizine 12.5 mg p.o. b.i.d. p.r.n. Librium 10 mg p.o. b.i.d. Aspirin 81 mg p.o. daily NEW PRESCRIPTIONS: Keflex 500 mg q.8hr for 7 days Prednisone 10 mg daily for 5 days Flonase 2 sprays both nostrils daily DIET INSTRUCTIONS: Regular as tolerated. ACTIVITY: Resume as tolerated. SMOKING: N/A DISEASE SPECIFIC EDUCATION: Sinusitis Nutrition Medications, specifically use of oral steroid and nasal spray Appointment HOSPITAL COURSE: The patient presented in the office on 10/31/16 presenting with a left periorbital cellulitis. She had redness and swelling surrounding the left eye with severe maxillary sinus tenderness bilaterally. She was afebrile. She had reported that she had felt this way for several days at home and was getting progressively worse with [id number] medication. She was weak. We then admitted her, placed her on IV Levaquin. Chest x-ray was negative. Her UA did reveal 3+ bacteria. We left her on the Levaquin until her culture revealed that it was E. coli and resistant to Levaquin for which we changed to IV Rocephin. She received 1 gm of IV Rocephin times three days and was then switched to p.o. Keflex on Sunday 11/05. Keflex 500 mg p.o. t.i.d. On the second day of admission , CT scan of the sinuses without contrast was conducted which was normal with mild sinus thickening. She received Decadron for 3 days for the severe headache and maxillary sinus tenderness. By the third day, Sunday, 11/04, the redness surrounding the left eye had completely resolved. There was still mild swelling. She continued to have extreme sinus tenderness until yesterday. Today and yesterday she is only experiencing mild sinus tenderness. There is no more swelling and there is no redness. She was also placed on Flonase nasal spray daily which seems to be helping with her nasal congestion and tenderness. Due to culture and sensitivity she was then switched to p.o. Keflex, which seems to be resolving. Over the course of her hospital stay, she did develop on 11/03 some hyponatremia. Her IV fluids were discontinued. On 11/03 her sodium was 126. On 11/04 after discontinuing IV fluids her sodium increased to 129 however on it went back down without IV fluids to 126 and she was not drinking excessively. She was placed on fluid restriction and on the and her sodium remained stable at 125. During these episodes of hyponatremia the patient remained asymptomatic. There was no confusion, no dizziness, no lightheadedness. Her vital signs remained stable during the course of her hospital stay. She never developed a fever. Her blood pressure was steady. For the past three days she has been up and about walking around. She states she is ready to go home. Her appetite is still somewhat decreased. Her vital signs on day of discharge, Temperature 97.1, blood pressure 129/65, pulse ox 97%, heart rate 66, respirations 20. Again, sodium 125 which is steady , potassium 4.7, BUN 18, creatinine 0.84, hemoglobin 12.6, hematocrit 34.7, white count 9.6. The patient will be discharged home on Keflex 500 mg p.o. t.i.d. for the next 7 days, Prednisone 10 mg p.o. daily for the next five days. She is to continue Flonase daily for the next two months. We will see her in the office on Sunday morning. She is to have a CBC and CMP before being seen in the office to evaluate her hyponatremia. She is to see us sooner if needed. The patient was discharged in stable condition with significant improvement and resolution of her left periorbital sinusitis with significant improvement in her sinusitis and urinary tract infection. TIME SPENT: More than 60 minutes. BRIAND
== END 2016-11-07 10:15 | disposition home or self-care (01) | DRG 603 ==
LOC: MEDSURG A 11:59
PROVIDERS: ADMIT Internal Medicine; ATTEND Internal Medicine
DX: L03.213 Periorbital cellulitis (principal); J44.0 Chronic obstructive pulmonary disease with (acute) lower respiratory infection; E87.1 Hypo-osmolality and hyponatremia; N39.0 Urinary tract infection, site not specified; J01.90 Acute sinusitis, unspecified; I51.7 Cardiomegaly; J20.9 Acute bronchitis, unspecified; E86.0 Dehydration; I10 Essential (primary) hypertension; I25.10 Atherosclerotic heart disease of native coronary artery without angina pectoris; M88.9 Osteitis deformans of unspecified bone; D64.9 Anemia, unspecified; M62.81 Muscle weakness (generalized); R05 Cough; B96.20 Unspecified Escherichia coli [E. coli] as the cause of diseases classified elsewhere; F17.200 Nicotine dependence, unspecified, uncomplicated; Z95.5 Presence of coronary angioplasty implant and graft; Z79.899 Other long term (current) drug therapy
CPT/HCPCS: 36415; 80053; 81001; 82607; 84439; 84443; 85025; 87040; 87070; 87086; 87186; 93005; 93010; 94640; 99223; 99231; 99232; 99239

== ENCOUNTER 2017-03-24 13:23 | Inpatient (IN) ==
--- NOTE | 2017-03-24 13:40 | ED.PDOC ---
General ED Provider: Dr. HAMLET GUZMÁN Chief Complaint: Respiratory Complaint Stated Complaint: Patient states that she has been 'Sick" for the last two of weeks. Symtoms got worse with fever of 101 yesterday with diarrhea, nause and vomiting. Time Seen by Physician: 13:34 Mode of Arrival: Wheelchair Information Source: Patient Exam Limitations: No limitations Primary Care Provider: SAGE MCCORMACK Nursing and Triage Documentation Reviewed and Agree: Yes Reviewed sepsis parameters & appropriate labs ordered?: Yes System Inflammatory Response Syndrome: Temp 96.8F or Lower Sepsis Protocol: For patient's 13 years and over: Temp is 96.8 and below OR 101 and greater Pulse >90 BPM Resp >20/minute Acutely Altered Mental Status Are patient's symptoms suggestive of a new infection, such as: -Pneumonia -Skin, Soft Tissue -Endocarditis -UTI -Bone, Joint Infection -Implantable Device -Acute Abdominal Infection -Wound Infection -Meningitis -Blood Stream Catheter Infection -Unknown Review of Systems - Review Of Systems Constitutional: Reports: Fever Eyes: Reports: No symptoms Ears, Nose, Mouth, Throat: Reports: No symptoms Respiratory: Reports: No symptoms Cardiac: Reports: No symptoms GI: Reports: Diarrhea, Nausea, Vomiting : Reports: No symptoms Musculoskeletal: Reports: No symptoms Skin: Reports: No symptoms Neurological: Reports: No symptoms Endocrine: Reports: No symptoms Hematologic/Lymphatic: Reports: No symptoms All Other Systems: Reviewed and Negative Past Medical History - Past Medical History Previously Healthy: Yes Endocrine: Reports: Dyslipidemia Cardiovascular: Reports: Hypertension Respiratory: Reports: None Hematological: Reports: None Gastrointestinal: Reports: None Genitourinary: Reports: None Neuro/Psych: Reports: None Musculoskeletal: Reports: None Cancer: Reports: None Last Menstrual Period: n/a - Surgical History General Surgical History: Reports: Hysterectomy, Cholecystectomy - Family History Family History: Reports: Unknown - Social History Smoking Status: Current every day smoker Hx Substance Use: No Alcohol Screening: None Physical Exam - Physical Exam Appearance: Ill-appearing Ill-appearing: Moderate Eyes: MEGHAN, EOMI, Conjunctiva clear Neck: Supple Respiratory: Breath sounds diminished, Rhonchi Cardiovascular: Tachycardia GI/: Soft Musculoskeletal: Normal strength, ROM intact, No edema, No calf tenderness Skin: Warm, Dry, Normal color Neurological: Sensation intact, Motor intact, Cranial nerves intact, Alert, Oriented Psychiatric: Anxious Interpretation - Radiology Interpretation Radiology Interpretation By: Radiologist Radiology Results: Negative Exam Interpreted: Portable CXR Radiology Interpretation By: Radiologist Radiology Results: Negative Exam Interpreted: CT Scan - J[employer] Routeman Rate: Normal Rhythm: Sinus Ectopy: PVCs - EKG Interpretation Time of EKG #1: 13:29 Rate: Tachy Rhythm: Sinus Ectopy: PVCs Turner: Left Interpretation: Age indeterminent septal infact. Critical Care Note - Critical Care Note Total Time (mins): 0 Course - Course Hematology/Chemistry: 03/25/17 06:28 03/25/17 06:28 Orders, Labs, Meds: Lab Review 03/24/17 03/24/17 03/24/17 13:50 13:50 13:50 WBC 12.41 H RBC 4.15 L Hgb 12.0 Hct 35.5 L MCV 85.5 MCH 28.9 MCHC 33.8 RDW Coeff of Gerald 13.7 Plt Count 120 L Immature Gran % (Auto) 0.3 Neut % (Auto) 79.2 Lymph % (Auto) 11.9 [place] % (Auto) 8.0 Eos % (Auto) 0.2 Baso % (Auto) 0.4 Immature Gran # (Auto) 0.0 Neut # 9.8 H Lymph # 1.5 [place] # 1.0 Eos # 0.0 Baso # 0.1 Sodium 137 Potassium 4.3 Chloride 106 Carbon Dioxide 21 L Anion Gap 14.3 BUN 13 Creatinine 0.78 Estimated GFR (MDRD) 71.00 BUN/Creatinine Ratio 16.66 Glucose 115 Lactic Acid Calcium 9.2 Total Bilirubin 0.7 AST 19 ALT 18 Alkaline Phosphatase 84 Total Creatine Kinase 50 Troponin I 0.0330 Total Protein 6.9 Albumin 3.5 Globulin 3.4 Albumin/Globulin Ratio 1.03 Procalcitonin < 0.05 Influenza A (Rapid) Influenza B (Rapid) 03/24/17 03/24/17 13:50 14:35 WBC RBC Hgb Hct MCV MCH MCHC RDW Coeff of Gerald Plt Count Immature Gran % (Auto) Neut % (Auto) Lymph % (Auto) [place] % (Auto) Eos % (Auto) Baso % (Auto) Immature Gran # (Auto) Neut # Lymph # [place] # Eos # Baso # Sodium Potassium Chloride Carbon Dioxide Anion Gap BUN Creatinine Estimated GFR (MDRD) BUN/Creatinine Ratio Glucose Lactic Acid 7.7 Calcium Total Bilirubin AST ALT Alkaline Phosphatase Total Creatine Kinase Troponin I Total Protein Albumin Globulin Albumin/Globulin Ratio Procalcitonin Influenza A (Rapid) Negative by naat Influenza B (Rapid) Negative by naat Orders Category Date Time Status EKG-(ED ONLY) Stat CARDIO 03/24/17 13:31 Completed EKG-(ED ONLY) Stat CARDIO 03/24/17 15:00 Completed IV ACCESS ONCE CARE 03/24/17 13:32 Active ED DRY PAN FEEDER APPLIED .ONCE EMERGENCY 03/24/17 13:32 Active ED IV/MEDIPORT/POWERPORT .ONCE EMERGENCY 03/24/17 13:56 Active ED VITAL SIGNS Q1HR EMERGENCY 03/24/17 13:32 Completed BLOOD CULTURE (ED ONLY) Stat LAB 03/24/17 13:50 Results CBC W/ AUTO DIFF Stat LAB 03/24/17 13:50 Completed COMPREHENSIVE METABOLIC PANEL Stat LAB 03/24/17 13:50 Completed CREATINE KINASE Stat LAB 03/24/17 13:50 Completed FLU A & B RAPID TEST [MOLECULAR FLU A/B] Stat LAB 03/24/17 14:35 Completed LACTIC ACID Stat LAB 03/24/17 13:50 Completed PROCALCITONIN Stat LAB 03/24/17 13:50 Completed TROPONIN I Stat LAB 03/24/17 13:50 Completed 0.9 % Sodium Chloride [Saline Flush] MEDS 03/24/17 13:56 Active 1 syr IVF PRN PRN Aspirin [Aspirin Chewable] MEDS 03/24/17 14:43 Discontinued 324 mg PO ONCE STA Morphine Sulfate [Morphine 2 mg/ml Syringe] MEDS 03/24/17 13:56 Discontinued 2 mg IVP ONCE STA Ondansetron HCl/Pf [Zofran 4 mg/2 ml] MEDS 03/24/17 13:56 Discontinued 4 mg IVP ONCE STA Pantoprazole Sodium [Protonix IV] MEDS 03/24/17 15:14 Discontinued 40 mg IVP ONCE STA Promethazine HCl [Phenergan 25 mg/ml Vial] MEDS 03/24/17 15:07 Discontinued 25 mg .ROUTE .STK-MED ONE Promethazine HCl [Phenergan 25 mg/ml Vial] 25 mg MEDS 03/24/17 15:00 Discontinued 0.9 % Sodium Chloride [Sodium Chloride] 50 ml IV ONCE Sodium Chloride 0.9% [Sodium Chloride] 1,000 ml MEDS 01/06/18 13:56 Discontinued IV BOLUS CHEST, 1V AP ONLY Stat RADS 03/24/17 13:[address] HEAD W/O CONTRAST Stat RADS 03/24/17 13:57 Completed Medications Generic Name Dose Route Start Last Admin Trade Name Freq PRN Reason Stop Dose Admin Acetaminophen 650 mg 03/24/17 16:22 Tylenol PO Q4H PRN fever or mild pain Albuterol/Ipratropium 1 vial 03/24/17 20:00 03/25/17 14:34 Duoneb NEB 1 vial RTQID YAW Administration Amlodipine Besylate 10 mg 03/25/17 09:00 03/25/17 09:02 Norvasc PO 10 mg DAILY YAW Administration Carvedilol 6.25 mg 03/24/17 21:00 03/25/17 17:35 Coreg PO 6.25 mg BIDWM YAW Administration Chlordiazepoxide HCl 10 mg 03/24/17 21:00 03/25/17 09:01 Librium PO 10 mg BID YAW Administration Diltiazem HCl 60 mg 03/24/17 21:00 03/25/17 09:03 Cardizem PO 60 mg Q12HR YAW Administration Enoxaparin Sodium 40 mg 03/25/17 09:00 03/25/17 09:03 Lovenox SUBCUT 40 mg DAILY YAW Administration Escitalopram Oxalate 20 mg 03/25/17 09:00 03/25/17 09:02 Lexapro PO 20 mg DAILY YAW Administration Levofloxacin/Dextrose 500 mg/ 100 mls @ 100 mls/hr 03/25/17 09:00 03/25/17 09 :01 Dextrose IV 100 mls/hr DAILY YAW Administration Sodium Chloride 1,000 mls @ 125 mls/hr 03/24/17 16:30 03/25/17 17:34 Sodium Chloride IV 125 mls/hr .Q8H YAW Administration Lisinopril 20 mg 03/24/17 21:00 03/25/17 09:03 Zestril PO 20 mg BID YAW Administration Lorazepam 0.5 mg 03/24/17 16:31 03/25/17 09:02 Ativan PO 0.5 mg BID PRN Administration Anxiety Meclizine HCl 12.5 mg 03/24/17 16:31 Antivert PO BID PRN Dizziness Methylprednisolone Sodium Succinate 125 mg 03/24/17 16:30 03/25/17 13:24 Solu-Medrol 125 Mg IVP 125 mg Q8HR YAW Administration Morphine Sulfate 2 mg 03/24/17 16:22 03/25/17 17:34 Morphine 2 Mg/Ml Syringe IVP 2 mg Q4H PRN Administration Severe Pain Ondansetron HCl 4 mg 03/24/17 16:22 03/25/17 09:02 Zofran 4 Mg/2 Ml IVP 4 mg Q6H PRN Administration Nausea / Vomiting Simvastatin 40 mg 03/25/17 09:00 03/25/17 09:02 Zocor PO 40 mg DAILY YAW Administration Sodium Chloride 1 syr 03/24/17 13:56 03/24/17 16:36 Saline Flush IVF 1 syr PRN PRN Administration To flush IV Discontinued Medications Generic Name Dose Route Start Last Admin Trade Name Freq PRN Reason Stop Dose Admin Aspirin 324 mg 03/24/17 14:43 03/24/17 16:37 Aspirin Chewable PO 03/24/17 14:44 Not Given ONCE STA Sodium Chloride 1,000 mls @ 1,000 mls/hr 03/24/17 13:56 03/24/17 14:22 Sodium Chloride IV 03/24/17 14:55 200 mls/hr BOLUS STA Administration Promethazine HCl 25 mg/ Sodium 51 mls @ 75 mls/hr 03/24/17 15:00 03/24/17 15: 19 Chloride IV 03/24/17 15:40 75 mls/hr ONCE STA Administration Levofloxacin/Dextrose 500 mg/ 100 mls @ 100 mls/hr 03/24/17 16:21 03/24/17 16 :36 Dextrose IV 03/24/17 17:20 100 mls/hr ONCE STA Administration Morphine Sulfate 2 mg 03/24/17 13:56 03/24/17 14:28 Morphine 2 Mg/Ml Syringe IVP 03/24/17 13:57 2 mg ONCE STA Administration Ondansetron HCl 4 mg 03/24/17 13:56 03/24/17 14:27 Zofran 4 Mg/2 Ml IVP 03/24/17 13:57 4 mg ONCE STA Administration Pantoprazole Sodium 40 mg 03/24/17 15:14 03/24/17 15:22 Protonix Iv IVP 03/24/17 15:15 40 mg ONCE STA Administration Vital Signs: Temp Pulse Resp BP Pulse Ox 03/24/17 16:00 93 H 185/77 H 03/24/17 15:43 99.4 F 96 H 16 188/66 H 03/24/17 14:52 97 H 23 170/127 H 99 03/24/17 13:23 100 F H 101 H 16 198/98 H 99 BLAS Risk Score Age >/= 65: Yes >/= 3 CAD Risk Factors: Yes Known CAD (Stenosis >/= 50%): Yes ASA Use in Past 7 Days: Yes Severe Angina (>/= 2 episodes in 24 hours): No EKG ST Changes >/= 0.5mm: No BLAS Total Score: 4 BLAS Risk Score: Risk Score Odds of by 30D 0 0.1 (0.1-0.2) 1 0.3 (0.2-0.3) 2 0.4 (0.3-0.5) 3 0.7 (0.6-0.9) 4 1.2 (1.0-1.5) 5 2.2 (1.9-2.6) 6 3.0 (2.5-3.6) 7 4.8 (3.8-6.1) Departure - Departure Time of Disposition: 17:00 Disposition: ADMITTED INPATIENT Discharge Problem: Gastroenteritis Acute bronchitis Qualifiers: Bronchitis organism: other organism Qualified Code(s): J20.8 - Acute bronchitis due to other specified organisms Condition: Fair Pt referred to PMD for follow-up: No (admitted ) Allergies/Adverse Reactions: Allergies clarithromycin [From Biaxin] Adverse Reaction (Verified 03/24/17 13:32) Penicillins Adverse Reaction (Verified 03/24/17 13:32) Sulfa (Sulfonamide Antibiotics) Adverse Reaction (Verified 03/24/17 13:32) Home Medications: Ambulatory Orders Amlodipine Besylate 10 mg PO DAILY 07/11/15 Carvedilol 6.25 mg PO BID 07/11/15 Escitalopram Oxalate 20 mg PO DAILY 07/11/15 Lisinopril [Prinivil] 20 mg PO BID 07/11/15 Lorazepam [Ativan] 0.5 mg PO BID PRN 07/11/15 Simvastatin 40 mg PO DAILY 07/11/15 Chlordiazepoxide HCl [Librium] 10 mg PO BID 10/31/16 Diltiazem HCl [Cardizem] 60 mg PO Q12HR 10/31/16 Meclizine HCl [Antivert] 12.5 mg PO BID PRN 10/31/16
[2017-03-24] MEDS ORDERED: SODIUM CHLORIDE 1,000 ML IV STA (13:56)
[2017-03-24] MEDS ORDERED: ZOFRAN 4 MG/2 ML IVP STA (13:56)
[2017-03-24] MEDS ORDERED: MORPHINE 2 MG/ML SYRINGE IVP STA (13:56)
--- NOTE | 2017-03-24 14:23 | CT ---
Exam: Head CT. Date: 03/24/2017. Comparison: 11/01/2016. HISTORY: Dizziness. TECHNIQUE: Helical scan of the brain was performed. FINDINGS: The calvarium is intact. The paranasal sinuses and mastoid air cells are clear. There is an old lacunar infarct in the right cerebellar hemisphere. There is mild decreased attenuati on in the periventricular white matter. No abnormal intra or extra-axial fluid, mass or mass effect is present. There is no midline shift or hydrocephalus. No large vessel infarct or hemorrhages iden tified. Walls-white interface is maintained. Impression: No acute findings and no significant change from 11/01/2016. 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
[2017-03-24] MEDS ORDERED: ASPIRIN CHEWABLE PO STA (14:43)
--- NOTE | 2017-03-24 14:44 | DI ---
EXAM: Chest one view HISTORY: Cough, chest pain COMPARISON: 11/05/2016 TECHNIQUE: Single view of the chest was performed FINDINGS: The lungs are clear. There is no pleural effusion or pneumothorax. The heart is normal i n size. The mediastinal contour is normal, noting atherosclerosis.. There are no acute abnormalitie s of the bones. Postsurgical changes in the epigastric region. Surgical clips in the neck. Degenerat abimael change right shoulder. IMPRESSION: No acute cardiopulmonary process.
[2017-03-24] MEDS ORDERED: PHENERGAN 25 MG/ML VIAL 25 MG in SODIUM CHLORIDE 50 ML IV STA (15:00)
[2017-03-24] MEDS ORDERED: PHENERGAN 25 MG/ML VIAL ONE (15:07)
[2017-03-24] MEDS ORDERED: PROTONIX IV IVP STA (15:14)
[2017-03-24] MEDS ORDERED: LEVAQUIN 500 MG in PREMIX 100 ML D5W 1 BAG IV STA (16:21)
[2017-03-24] MEDS ORDERED: TYLENOL PO PRN (16:22)
[2017-03-24] MEDS ORDERED: LEVAQUIN 100 ML IV ONE (16:28)
[2017-03-24] MEDS ORDERED: SOLU-MEDROL 125 MG ONE (16:29)
[2017-03-24] MEDS ORDERED: ANTIVERT PO PRN (16:31)
[2017-03-24] MEDS: SOLU-MEDROL 125 MG IVP SCH ×2 (16:34→20:30)
[2017-03-24] MEDS: SODIUM CHLORIDE 1,000 ML IV SCH (17:05)
[2017-03-24 17:41] VITALS: BMI 26.2
[2017-03-24] MEDS: MORPHINE 2 MG/ML SYRINGE IVP PRN (19:09)
[2017-03-24] MEDS: DUONEB NEB SCH (20:33)
[2017-03-24] MEDS ORDERED: LISINOPRIL 20 MG PO SCH (21:00)
[2017-03-24] MEDS: COREG PO SCH (22:18)
[2017-03-24] MEDS: CARDIZEM PO SCH (22:18)
[2017-03-24] MEDS: ZESTRIL PO SCH (22:18)
[2017-03-24] MEDS: LIBRIUM PO SCH (22:18)
[2017-03-25] MEDS: ZOFRAN 4 MG/2 ML IVP PRN ×3 (01:21→20:13)
[2017-03-25] MEDS: SODIUM CHLORIDE 1,000 ML IV SCH ×3 (01:21→17:34)
[2017-03-25] MEDS: MORPHINE 2 MG/ML SYRINGE IVP PRN ×3 (01:22→17:34)
[2017-03-25] MEDS: SOLU-MEDROL 125 MG IVP SCH ×3 (04:48→20:12)
[2017-03-25] MEDS: DUONEB NEB SCH ×4 (04:57→20:35)
[2017-03-25] MEDS ORDERED: NON-FORMULARY MEDICATION (Amlodipine Besylate [Amlodipine Besylate] 10 MG) PO SCH (09:00)
[2017-03-25] MEDS ORDERED: NON-FORMULARY MEDICATION (Escitalopram Oxalate [Escitalopram Oxalate] 20 MG) PO SCH (09:00)
[2017-03-25] MEDS: LIBRIUM PO SCH ×2 (09:01→20:12)
[2017-03-25] MEDS: LEVAQUIN 500 MG in PREMIX 100 ML D5W 1 BAG IV SCH (09:01)
[2017-03-25] MEDS: ZOCOR PO SCH (09:02)
[2017-03-25] MEDS: ATIVAN PO PRN ×2 (09:02→20:12)
[2017-03-25] MEDS: NORVASC PO SCH (09:02)
[2017-03-25] MEDS: LEXAPRO PO SCH (09:02)
[2017-03-25] MEDS: COREG PO SCH ×2 (09:02→17:35)
[2017-03-25] MEDS: ZESTRIL PO SCH ×2 (09:03→20:12)
[2017-03-25] MEDS: CARDIZEM PO SCH ×2 (09:03→20:12)
[2017-03-25] MEDS: LOVENOX SUBCUT SCH (09:03)
[2017-03-26] MEDS: MORPHINE 2 MG/ML SYRINGE IVP PRN ×3 (00:26→17:09)
[2017-03-26] MEDS: SODIUM CHLORIDE 1,000 ML IV SCH ×3 (02:22→17:12)
[2017-03-26] MEDS: SOLU-MEDROL 125 MG IVP SCH ×3 (04:10→20:59)
[2017-03-26] MEDS: DUONEB NEB SCH ×4 (05:33→23:41)
[2017-03-26] MEDS: NORVASC PO SCH (08:34)
[2017-03-26] MEDS: LIBRIUM PO SCH ×2 (08:34→20:59)
[2017-03-26] MEDS: CARDIZEM PO SCH ×2 (08:34→20:58)
[2017-03-26] MEDS: LEVAQUIN 500 MG in PREMIX 100 ML D5W 1 BAG IV SCH (08:34)
[2017-03-26] MEDS: ZOCOR PO SCH (08:35)
[2017-03-26] MEDS: LOVENOX SUBCUT SCH (08:35)
[2017-03-26] MEDS: ZESTRIL PO SCH ×2 (08:35→20:59)
[2017-03-26] MEDS: LEXAPRO PO SCH (08:35)
[2017-03-26] MEDS: COREG PO SCH ×2 (08:35→17:30)
--- NOTE | 2017-03-26 10:04 | PCM.PROG ---
Attending Provider: ATTENDING PROVIDER: Dr. SAGE MCCORMACK This patient is seen with Cheri Zaragoza, Nurse Practitioner. DATE OF SERVICE: 03/26/17 SUBJECTIVE: This 81 year old WHITE/ F was hospitalized 03/24/17. The patient is lying in bed, alert. She states she is feeling better. She is still aching all over. REVIEW OF SYSTEMS: CONSTITUTIONAL: Fatigue. No night sweats. No fever or chills. HEENT: Eyes: No visual changes. No eye pain. No eye discharge. ENT: No runny nose. No epistaxis. No sinus pain. No odynophagia. No congestion. RESPIRATORY: Cough. No congestion. No hemoptysis. No shortness of breath. CARDIOVASCULAR: No angina symptoms. No CHF symptoms. No atypical chest pain for CAD. No palpitations. No orthopnea.. GASTROINTESTINAL: No abdominal pain. No nausea or vomiting. No diarrhea or constipation. No hematemesis. No hematochezia. GENITOURINARY: No urgency. No frequency. No dysuria. No hematuria. No obstructive symptoms. No discharge. No pain. No significant abnormal bleeding. MUSCULOSKELETAL: Aching all over. NEUROLOGICAL: Awake, alert, oriented to time, place and person. No headache. No neck pain. No syncope. No seizures. No dizziness. PSYCHIATRIC: Not anxious. No depression. No suicidal thoughts. No homicidal thoughts. SKIN: No rash. No lesions. No wounds. ENDOCRINE: No unexplained weight loss. No weight gain. HEMATOLOGIC/LYMPHATIC: No anemia. No purpura. No petechiae. No prolonged or excessive bleeding. No palpable lymph nodes. PHYSICAL EXAMINATION: GENERAL: The patient is awake, alert and oriented, lying in bed in no distress. VITAL SIGNS: Temperature 98.3 F, Pulse 83, Respiratory Rate 16, BP 110/53, Pulse Ox 94% HEENT: Head normocephalic, atraumatic. Eyes: Extraocular muscles are intact. Pupils are equal, round and reactive to light and accommodation. Ears: No lesions. Nose appeared normal. Throat: No exudate or erythema. NECK: Supple. No JVD, no carotid bruit. No lymphadenopathy or thyromegaly. LUNGS: Diminished breath sounds bilaterally. Clear to auscultation. Percussion note normal. Chest symmetrical. HEART: S1, S2, no S3. No murmurs. No cyanosis or clubbing. No ascites. Pulses: Dorsalis pedis and posterior tibial pulses +1 to +2 both sides. ABDOMEN: Soft. Non-tender. Bowel sounds active. No CVA tenderness. No mass felt. EXTREMITIES: No edema. Full range of motion of all extremities, equal. NEUROLOGIC: No focal deficit. Cranial nerves II through XII are grossly intact. No headache, no double vision or headache. SKIN: Not dry. Intact. Turgor-normal. LYMPHATIC: No palpable lymph nodes/no lymphedema. MUSCULOSKELETAL: Normal joints with no swelling. Muscle tone is normal. LAB REVIEW: 03/26/17 05:19 03/26/17 05:19 03/26/17 05:19: Sodium 137, Potassium 4.5, Chloride 109 H, Carbon Dioxide 23, Anion Gap 9.5, BUN 23 H, Creatinine 0.81, Estimated GFR (MDRD) 68.00, BUN/ Creatinine Ratio 28.39, Glucose 188 H, Calcium 8.2, Total Bilirubin 0.3, AST 124 H D, ALT 255 H D, Alkaline Phosphatase 114 D, Total Protein 5.7 L, Albumin 2.8 L, Globulin 2.9, Albumin/Globulin Ratio 0.97 03/26/17 05:19: WBC 11.83 H D, RBC 3.38 L, Hgb 9.8 L, Hct 29.9 L, MCV 88.5, MCH 29.0, MCHC 32.8, RDW Coeff of Gerald 14.2, Plt Count 167, Immature Gran % (Auto) 0.6, Neut % (Auto) 91.1, Lymph % (Auto) 5.9 L, [place] % (Auto) 2.3, Eos % (Auto) 0.0, Baso % (Auto) 0.1, Immature Gran # (Auto) 0.1, Neut # 10.8 H, Lymph # 0.7, [place] # 0.3 L, Eos # 0.0, Baso # 0.0 03/25/17 06:40: TSH 0.355, Free T4 1.13 ASSESSMENT: 1. Acute bronchitis 2. Pleuritic pain 3. Viral syndrome 4. Anemia PLAN: 1. Decreased IV fluids to 50 mL/hr 2. Phenergan with Codeine p.o. t.i.d. p.r.n. 3. Stool for occult blood Plan and coordination of the patient's care discussed in the presence of Real Estate Agent/Broker and nurse. CONDITION: Stable SCRIBED BY: NEIL LITTLE Site Administrator scribed while in presence of service performed by Dr. Mccormack/Cheri Zaragoza APRN on 03/26/17 ([id number])
[2017-03-26] MEDS: PHENERGAN WITH CODEINE 6.25/10 MG/5 ML PO PRN ×2 (10:09→19:52)
[2017-03-27] MEDS: MORPHINE 2 MG/ML SYRINGE IVP PRN (02:21)
[2017-03-27] MEDS: DUONEB NEB SCH (04:02)
[2017-03-27] MEDS: SOLU-MEDROL 125 MG IVP SCH ×2 (05:03→21:33)
[2017-03-27] MEDS: PHENERGAN WITH CODEINE 6.25/10 MG/5 ML PO PRN ×2 (05:04→14:02)
--- NOTE | 2017-03-27 09:32 | PCM.PROG ---
Attending Provider: ATTENDING PROVIDER: Dr. SAGE MCCORMACK This patient is seen with Cheri Zaragoza, Nurse Practitioner. DATE OF SERVICE: 03/27/17 SUBJECTIVE: This 81 year old WHITE/ F was hospitalized 03/24/17. The patient is lying in bed, alert. Coughing some through the night, still feeling weak. REVIEW OF SYSTEMS: CONSTITUTIONAL: Weakness. No night sweats. No fever or chills. HEENT: Eyes: No visual changes. No eye pain. No eye discharge. ENT: No runny nose. No epistaxis. No sinus pain. No odynophagia. No congestion. RESPIRATORY: Cough and congestion. No hemoptysis. No shortness of breath. CARDIOVASCULAR: No angina symptoms. No CHF symptoms. No atypical chest pain for CAD. No palpitations. No orthopnea.. GASTROINTESTINAL: No abdominal pain. No nausea or vomiting. No diarrhea or constipation. No hematemesis. No hematochezia. GENITOURINARY: No urgency. No frequency. No dysuria. No hematuria. No obstructive symptoms. No discharge. No pain. No significant abnormal bleeding. MUSCULOSKELETAL: No musculoskeletal pain; no joint swelling. NEUROLOGICAL: Awake, alert, oriented to time, place and person. No headache. No neck pain. No syncope. No seizures. No dizziness. PSYCHIATRIC: Not anxious. No depression. No suicidal thoughts. No homicidal thoughts. SKIN: No rash. No lesions. No wounds. ENDOCRINE: No unexplained weight loss. No weight gain. HEMATOLOGIC/LYMPHATIC: No anemia. No purpura. No petechiae. No prolonged or excessive bleeding. No palpable lymph nodes. PHYSICAL EXAMINATION: GENERAL: The patient is awake, alert and oriented, lying bed in no distress. VITAL SIGNS: Temperature 97.8 F, Pulse 84, Respiratory Rate 20, BP 111/59, Pulse Ox 94% HEENT: Head normocephalic, atraumatic. Eyes: Extraocular muscles are intact. Pupils are equal, round and reactive to light and accommodation. Ears: No lesions. Nose appeared normal. Throat: No exudate or erythema. NECK: Supple. No JVD, no carotid bruit. No lymphadenopathy or thyromegaly. LUNGS: Diminished breath sounds bilaterally. Clear to auscultation. Percussion note normal. Chest symmetrical. HEART: S1, S2, no S3. No murmurs. No cyanosis or clubbing. No ascites. Pulses: Dorsalis pedis and posterior tibial pulses +1 to +2 both sides. ABDOMEN: Soft. Non-tender. Bowel sounds active. No CVA tenderness. No mass felt. EXTREMITIES: No edema. Full range of motion of all extremities, equal. NEUROLOGIC: No focal deficit. Cranial nerves II through XII are grossly intact. No headache, no double vision or headache. SKIN: Not dry. Intact. Turgor-normal. LYMPHATIC: No palpable lymph nodes/no lymphedema. MUSCULOSKELETAL: Normal joints with no swelling. Muscle tone is normal. LAB REVIEW: 03/27/17 04:30 03/27/17 04:30 03/27/17 04:30: Sodium 137, Potassium 4.5, Chloride 111 H, Carbon Dioxide 19 L, Anion Gap 11.5, BUN 33 H, Creatinine 0.83, Estimated GFR (MDRD) 66.00, BUN/ Creatinine Ratio 39.75, Glucose 200 H, Calcium 7.9 L, Total Bilirubin 0.3, AST 76 H D, ALT 187 H D, Alkaline Phosphatase 99, Total Protein 5.7 L, Albumin 2.7 L , Globulin 3.0, Albumin/Globulin Ratio 0.90 03/27/17 04:30: WBC 10.87 H, RBC 3.51 L, Hgb 10.0 L, Hct 31.3 L, MCV 89.2, MCH 28.5, MCHC 31.9, RDW Coeff of Gerald 14.4, Plt Count 181, Immature Gran % (Auto) 1.3, Neut % (Auto) 92.1, Lymph % (Auto) 5.1 L, [place] % (Auto) 1.5, Eos % (Auto) 0.0, Baso % (Auto) 0.0, Immature Gran # (Auto) 0.1, Neut # 10.0 H, Lymph # 0.6, [place] # 0.2 L, Eos # 0.0, Baso # 0.0 ASSESSMENT: 1. Acute bronchitis 2. Pleuritic pain 3. Viral syndrome 4. Anemia PLAN: 1. Xopenex 1.25 2. D/c Duonebs 3. Decrease IV fluids to 30 mL/hr then d/c this evening 4. Decrease Solu-Medrol to 125 b.i.d. 5. Toradol 30 mg q.8 p.r.n. Plan and coordination of the patient's care discussed in the presence of Powder Coat Painter and nurse. CONDITION: Stable SCRIBED BY: NEIL LITTLE Dope Dry House Operator scribed while in presence of service performed by Dr. Mccormack/Cheri Zaragoza APRN on 03/27/17 ([id number])
[2017-03-27] MEDS ORDERED: SODIUM CHLORIDE 1,000 ML IV SCH (09:53)
[2017-03-27] MEDS: NORVASC PO SCH (10:25)
[2017-03-27] MEDS: LIBRIUM PO SCH ×2 (10:25→21:33)
[2017-03-27] MEDS: LOVENOX SUBCUT SCH (10:25)
[2017-03-27] MEDS: CARDIZEM PO SCH ×2 (10:25→21:34)
[2017-03-27] MEDS: ZESTRIL PO SCH ×2 (10:25→21:33)
[2017-03-27] MEDS: ZOCOR PO SCH (10:25)
[2017-03-27] MEDS: LEXAPRO PO SCH (10:25)
[2017-03-27] MEDS: COREG PO SCH ×2 (10:25→18:35)
[2017-03-27] MEDS: LEVAQUIN 500 MG in PREMIX 100 ML D5W 1 BAG IV SCH (10:26)
[2017-03-27] MEDS: XOPENEX 1.25 MG NEB SCH ×3 (11:18→23:28)
--- NOTE | 2017-03-27 13:45 | PN ---
DATE OF SERVICE: 03/24/17 SUBJECTIVE: The patient was hospitalized today through the emergency room. The patient was seen and examined in the emergency room and the daughter was present. Dr. Khan was instructional systems designer. The reason for hospital visit was nausea,vomiting and mild cough and fever. The patient had fever of 101 at home but 100 in the emergency room. She looks somewhat pale and complained of mild abdominal pain, mostly subcostal when vomiting. The patient is stable in the emergency room. REVIEW OF SYSTEMS: CONSTITUTIONAL: No night sweats. No fatigue, malaise, lethargy. No fever or chills. HEENT: Eyes: No visual changes. No eye pain. No eye discharge. ENT: No runny nose. No epistaxis. No sinus pain. No sore throat. No odynophagia. No congestion. RESPIRATORY: No cough, no congestion. No hemoptysis. No shortness of breath. CARDIOVASCULAR: No angina symptoms. No CHF symptoms. No atypical chest pain for CAD. No palpitations. No orthopnea. GASTROINTESTINAL: No abdominal pain. No nausea or vomiting. No diarrhea or constipation. No hematemesis. No hematochezia. GENITOURINARY: No urgency. No frequency. No dysuria. No hematuria. No obstructive symptoms. No discharge. No pain. No significant abnormal bleeding. MUSCULOSKELETAL: No musculoskeletal pain; no joint swelling. NEUROLOGICAL: No headache. No neck pain. No syncope. No seizures. No dizziness. PSYCHIATRIC: Not anxious. No depression. No suicidal thoughts. No homicidal thoughts. SKIN: No rash. No lesions. No wounds. ENDOCRINE: No unexplained weight loss. No weight gain. HEMATOLOGIC/LYMPHATIC: No anemia. No purpura. No petechiae. No prolonged or excessive bleeding. No palpable lymph nodes. PHYSICAL EXAMINATION: HEENT: Head normocephalic, atraumatic. Eyes: Extraocular muscles are intact. Pupils are equal, round and reactive to light and accommodation. Ears: No lesions. Nose appeared normal. Throat: No exudate or erythema. NECK: Supple. No JVD, no carotid bruit. No lymphadenopathy or thyromegaly. LUNGS: Clear to auscultation. Percussion note normal. Chest symmetrical. HEART: S1, S2, no S3. No murmurs. No cyanosis or clubbing. No ascites. Pulses: Dorsalis pedis and posterior tibial pulses +1 to +2 both sides. ABDOMEN: Soft. Nontender. Bowel sounds active. No CVA tenderness. No mass felt. EXTREMITIES: No edema. Full range of motion of all extremities, equal. NEUROLOGIC: No focal deficit. Cranial nerves II through XII are grossly intact. No headache, no double vision or headache. SKIN: Not dry. Intact. Turgor - normal. LYMPHATIC: No palpable lymph nodes/no lymphedema. MUSCULOSKELETAL: Normal joints with no swelling. Muscle tone is normal. ASSESSMENT: 1. Flu type of symptoms PLAN: 1. Admit 2. IV fluids 3. Antibiotics 4. Steroids CONDITION: Stable TIME SPENT: More than 30 minutes. Plan and coordination of the patient's care discussed in the presence of nurse. [place]
--- NOTE | 2017-03-27 13:47 | PN ---
DATE OF SERVICE: 03/25/17 SUBJECTIVE: 81 year old white female hospitalized with cough, congestion, dehydration, shortness of breath. The patient's chest pain has subsided which was more like a pleuritic and reflux type. Bronchitis symptoms are under control. She still has mild nausea. The daughter is in the room. REVIEW OF SYSTEMS: CONSTITUTIONAL: No night sweats. No fatigue, malaise, lethargy. No fever or chills. HEENT: Eyes: No visual changes. No eye pain. No eye discharge. ENT: No runny nose. No epistaxis. No sinus pain. No sore throat. No odynophagia. No congestion. RESPIRATORY: Mild cough, no congestion. No hemoptysis. No shortness of breath. CARDIOVASCULAR: No angina symptoms. No CHF symptoms. No atypical chest pain for CAD. No palpitations. No orthopnea. No PND. GASTROINTESTINAL: No abdominal pain. Mild nausea. No vomiting. No diarrhea or constipation. No hematemesis. No hematochezia. GENITOURINARY: No urgency. No frequency. No dysuria. No hematuria. No obstructive symptoms. No discharge. No pain. No significant abnormal bleeding. MUSCULOSKELETAL: No musculoskeletal pain; no joint swelling. Getting some strength back. NEUROLOGICAL: No headache. No neck pain. No syncope. No seizures. No dizziness. PSYCHIATRIC: Not anxious. No depression. No suicidal thoughts. No homicidal thoughts. SKIN: No rash. No lesions. No wounds. ENDOCRINE: No unexplained weight loss. No weight gain. HEMATOLOGIC/LYMPHATIC: No anemia. No purpura. No petechiae. No prolonged or excessive bleeding. No palpable lymph nodes. PHYSICAL EXAMINATION: VITAL SIGNS: Temperature 96.8, pulse 60, respiratory rate 24, blood pressure 104/60 and pulse ox 98%. HEENT: Head normocephalic, atraumatic. Eyes: Extraocular muscles are intact. Pupils are equal, round and reactive to light and accommodation. Ears: No lesions. Nose appeared normal. Throat: No exudate or erythema. NECK: Supple. No JVD, no carotid bruit. No lymphadenopathy or thyromegaly. LUNGS: Decreased breath sounds but clear to auscultation. Percussion note normal. Chest symmetrical. HEART: S1, S2, no S3. No murmurs. No cyanosis or clubbing. No ascites. Pulses: Dorsalis pedis and posterior tibial pulses +1 to +2 both sides. ABDOMEN: Soft. Nontender. Bowel sounds active. No CVA tenderness. No mass felt. EXTREMITIES: No edema. Full range of motion of all extremities, equal. NEUROLOGIC: No focal deficit. Cranial nerves II through XII are grossly intact. No headache, no double vision or headache. SKIN: Not dry. Intact. Turgor - normal. LYMPHATIC: No palpable lymph nodes/no lymphedema. MUSCULOSKELETAL: Normal joints with no swelling. Muscle tone is normal. LABS: Hgb 12, hct 35, WBC 12,000 normal differential, creatinine 0.7, BUN 13, potassium 4 ASSESSMENT: 1. Acute bronchitis/pneumonitis 2. Flu symptoms seems to be subsiding 3. Chest pain has subsided, atypical PLAN: 1. Continue IV fluids, Antibiotics and NEBS 2. CBC, CMP, T4 TSH CONDITION: Stable TIME SPENT: More than 30 minutes. Plan and coordination of the patient's care discussed in the presence of nurse. ALEXUS
[2017-03-27] MEDS: TORADOL IVP PRN (13:58)
[2017-03-27] MEDS: SODIUM CHLORIDE 1,000 ML IV SCH (21:34)
[2017-03-28] MEDS: TORADOL IVP PRN ×2 (01:38→10:44)
[2017-03-28] MEDS: ZOFRAN 4 MG/2 ML IVP PRN ×2 (01:39→10:45)
[2017-03-28] MEDS: XOPENEX 1.25 MG NEB SCH (03:58)
[2017-03-28] MEDS: SOLU-MEDROL 125 MG IVP SCH (09:00)
[2017-03-28] MEDS: LEVAQUIN 500 MG in PREMIX 100 ML D5W 1 BAG IV SCH (09:53)
[2017-03-28] MEDS: NORVASC PO SCH (09:54)
[2017-03-28] MEDS: CARDIZEM PO SCH ×2 (09:54→20:51)
[2017-03-28] MEDS: ZOCOR PO SCH (09:54)
[2017-03-28] MEDS: LEXAPRO PO SCH (09:54)
[2017-03-28] MEDS: COREG PO SCH ×2 (09:54→16:37)
[2017-03-28] MEDS: LIBRIUM PO SCH ×2 (09:54→20:51)
[2017-03-28] MEDS: ZESTRIL PO SCH ×2 (09:54→20:51)
[2017-03-28] MEDS: LOVENOX SUBCUT SCH (09:55)
[2017-03-28] MEDS: PREDNISONE PO SCH (10:00)
--- NOTE | 2017-03-28 10:16 | PCM.PROG ---
Attending Provider: ATTENDING PROVIDER: Dr. SAGE MCCORMACK DATE OF SERVICE: 03/28/17 SUBJECTIVE: This 81 year old WHITE/ F was hospitalized 03/24/17. The patient is hospitalized with bronchitis/chest pain and nausea. The patient looks lot better , is talking better and doesn't seem to be confused. Nausea is better. No chest pain. REVIEW OF SYSTEMS: CONSTITUTIONAL: No night sweats. No fatigue, malaise, lethargy. No fever or chills. HEENT: Eyes: No visual changes. No eye pain. No eye discharge. ENT: No runny nose. No epistaxis. No sinus pain. No odynophagia. No congestion. RESPIRATORY: No cough, no congestion. No hemoptysis. No shortness of breath. CARDIOVASCULAR: No angina symptoms. No CHF symptoms. No atypical chest pain for CAD. No palpitations. No orthopnea.. GASTROINTESTINAL: Nausea is better. No abdominal pain. No vomiting. No diarrhea or constipation. No hematemesis. No hematochezia. GENITOURINARY: No urgency. No frequency. No dysuria. No hematuria. No obstructive symptoms. No discharge. No pain. No significant abnormal bleeding. MUSCULOSKELETAL: No musculoskeletal pain; no joint swelling. NEUROLOGICAL: Awake, alert, oriented to time, place and person. No headache. No neck pain. No syncope. No seizures. No dizziness. PSYCHIATRIC: Not anxious. No depression. No suicidal thoughts. No homicidal thoughts. SKIN: No rash. No lesions. No wounds. ENDOCRINE: No unexplained weight loss. No weight gain. HEMATOLOGIC/LYMPHATIC: No anemia. No purpura. No petechiae. No prolonged or excessive bleeding. No palpable lymph nodes. PHYSICAL EXAMINATION: GENERAL: The patient is awake, alert and oriented, lying/sitting in bed in no distress. VITAL SIGNS: Temperature 98.7 F, Pulse 66, Respiratory Rate 16, BP 98/60, Pulse Ox 92% HEENT: Head normocephalic, atraumatic. Eyes: Extraocular muscles are intact. Pupils are equal, round and reactive to light and accommodation. Ears: No lesions. Nose appeared normal. Throat: No exudate or erythema. NECK: Supple. No JVD, no carotid bruit. No lymphadenopathy or thyromegaly. LUNGS: Clear to auscultation. Percussion note normal. Chest symmetrical. HEART: S1, S2, no S3. No murmurs. No cyanosis or clubbing. No ascites. Pulses: Dorsalis pedis and posterior tibial pulses +1 to +2 both sides. ABDOMEN: Soft. Non-tender. Bowel sounds active. No CVA tenderness. No mass felt. EXTREMITIES: No edema. Full range of motion of all extremities, equal. NEUROLOGIC: No focal deficit. Cranial nerves II through XII are grossly intact. No headache, no double vision or headache. SKIN: Not dry. Intact. Turgor-normal. LYMPHATIC: No palpable lymph nodes/no lymphedema. MUSCULOSKELETAL: Normal joints with no swelling. Muscle tone is normal. LAB REVIEW: 03/28/17 05:00 03/28/17 05:00 03/28/17 05:00: Sodium 137, Potassium 4.3, Chloride 110 H, Carbon Dioxide 23, Anion Gap 8.3, BUN 47 H, Creatinine 0.98, Estimated GFR (MDRD) 55.00, BUN/ Creatinine Ratio 47.95, Glucose 194 H, Calcium 7.8 L, Total Bilirubin 0.3, AST 49 H D, ALT 160 H, Alkaline Phosphatase 89, Total Protein 5.8, Albumin 2.8 L, Globulin 3.0, Albumin/Globulin Ratio 0.93 03/28/17 05:00: WBC 8.29, RBC 3.38 L, Hgb 9.9 L, Hct 29.8 L, MCV 88.2, MCH 29.3 , MCHC 33.2, RDW Coeff of Gerald 14.1, Plt Count 177, Immature Gran % (Auto) 1.0, Neut % (Auto) 91.5, Lymph % (Auto) 5.1 L, [place] % (Auto) 2.3, Eos % (Auto) 0.1, Baso % (Auto) 0.0, Immature Gran # (Auto) 0.1, Neut # 7.6 H, Lymph # 0.4 L, [place] # 0.2 L, Eos # 0.0, Baso # 0.0 ASSESSMENT: 1. Flu-type of symptoms with nausea/gastritis/bronchitis and chest pain all resolved 2. Cardiovascular status is stable PLAN: 1. PT evaluation 2. D/C Xopenex because of shakiness 3. Prednisone 20 mg p.o. daily 4. D/C telemetry Plan and coordination of the patient's care discussed in the presence of Nibbler Operator and nurse. CONDITION: Improved SCRIBED BY: NEIL LITTLE, Data Entry Clerk scribed while in presence of service performed by Dr. SAGE MCCORMACK on 03/28/17 ([id number])
[2017-03-28] MEDS: PHENERGAN WITH CODEINE 6.25/10 MG/5 ML PO PRN (10:53)
--- NOTE | 2017-03-28 12:01 | RS.PTINEVL ---
Subjective - Patient information Date of Evaluation: 03/28/17 Date of Arrival on Unit: 03/24/17 Admitted From:: Home Diagnosis: acute bronchitis, gastroenteritis Usual Living Arrangement: with adult children Home Environment: House, Stairs (few), Rail Medical History: Hypertension, CVA/TIA Medical History Comments:: pagets disease, LATEX ALLERGY?: No Surgical History: Hysterectomy Surgical History Comments:: colon resection Subjective Information/ Patient Comments:: pt states that she isn't feeling well but she wants to get out of bed. - Level of function Prior to this admission, the patient could do the following:: Independent Selfcare, Independent Ambulation Current Level of Function: Partially Dependent Current Equipment Used at Home: none Interventions - Objective Patient Orientation: Person, Place, Time, Situation Current Interventions: IV's, Oxygen, Telemetry, Pires Catheter Range of Motion - ROM Right Upper Extremity AROM: WFL's Left Upper Extremity AROM: WFL's Right Lower Extremity AROM: WFL's Left Lower Extremity AROM: WFL's Muscle Strength - Muscle Strength Right Upper Extremity Strength: Mild Weakness (grossly 4-/5) Left Upper Extremity Strength: Mild Weakness (grossly 4-/5) Right Lower Extremity Strength: Mild Weakness (hip flex 4-/5, knee flex/ext 4-/5 , ankle Df/PF 4-/5) Left Lower Extremity Strength: Mild Weakness (hip flex 4-/5, knee flex/ext 4-/5 , ankle Df/PF 4-/5) Sensation - Sensation Right Upper Extremity Sensation: Intact/Normal Left Upper Extremity Sensation: Intact/Normal Right Lower Extremity Sensation: Intact/Normal Left Lower Extremity Sensation: Intact/Normal Palpation Palpation Findings: None/Normal Balance - Sitting Balance and Reactions Static Sitting Balance: Good Dynamic Sitting Balance: Fair Sitting Equilibrium Reactions: Delayed Left, Delayed Right Sitting Protective Reactions: Delayed Left, Delayed Right - Standing Balance and Reactions Static Standing Balance: Fair Dynamic Standing Balance: Poor Standing Equilibrium Reactions: Delayed Left, Delayed Right Standing Protective Reactions: Delayed Left, Delayed Right - Comments Balance Assessment Comments: TUG >50 secs Functional Mobility - Bed Mobility Rolling R/L: Min Assist Supine to Sit: Min Assist Sit to Supine: Min Assist - Transfers Sit to Stand: Min Assist Stand to Sit: Min Assist - Safety Awareness Safety Awareness: Fair Ambulation - Ambulation Assistive Device Used: Rolling Walker Orthotic/Prosthetic Device: No Distance: 100ft Assistance needed with Ambulation: CGA, Min Assist Gait Deviations: Forward posture, Short stride Ambulation Comments: pt amb with flexed posture and as pt became tired pt became pale and knees flexed Treatment time - Time with patient Total treatment time: 30 Patient Education - Education Patient Education: Education of diagnosis, Education of Plan of Care Teaching Recipient: Patient Teaching Methods: Discussion (Discussion with patient regarding POC and safety) Assessment - Assessment Problem List:: Decreased level of function, Requires training/education, Decreased safety/Risk of falls, Weakness Rehab Potential: Good Further Therapy Indicated?: Yes Short Term Goals GOAL #1: independent with rolling and scooting up in bed Goal to be met by: 03/31/17 GOAL #2: pt transfer sup to/from sit to/from stand CGA Goal to be met by: 03/31/17 GOAL #3: pt amb 125ft with rwx with CGA with no LOB Goal to be met by: 03/31/17 [facility] Goals GOAL #1: pt transfer sup to/from sit to/from stand with supervision Goal to be met by: 04/03/17 GOAL #2: pt amb functional household distances with rwx with SBA with no LOB Goal to be met by: 04/03/17 GOAL #3: Improved BLE strength 4 to 4+5 and independent with HEP Plan Plan of Care: Therapeutic EX, Therapeutic Activity Other:: gait training Frequency of Treatment: 1-2 X day, as tolerated Duration of Treatment: 6 days Anticipated Discharge Destination: Home Has the Physician been added for Co-signature?: Yes
--- NOTE | 2017-03-28 14:06 | RS.OTINEVL ---
Subjective - Patient information Date of Evaluation: 03/28/17 Date of Arrival on Unit: 03/24/17 Admitted From:: Home Diagnosis: Muscle weakness Usual Living Arrangement: with adult children Living Arrangement Comments: Pt lives at home with family. Pt reports that they take care of each other. Pt reports she does not use an assistive device at this time. Home Environment: House, Stairs (few), Rail Medical History: Hypertension, CVA/TIA Medical History Comments:: pagets disease, LATEX ALLERGY?: No Surgical History: Hysterectomy Surgical History Comments:: colon resection, hysterectomy, Hand repaired. Subjective Information/ Patient Comments:: "This arm is always swollen like this." - Level of function Prior to this admission, the patient could do the following:: Independent Selfcare, Independent Ambulation Abilities prior to this admission: Pt was ambulating independently. Pt reports she lives at home with family and she cooks for all of them. Current Level of Function: Partially Dependent Current Equipment Used at Home: none Pain Assessment - Pain Pain Score: 0 Interventions - Objective Patient Orientation: Person, Situation Current Interventions: IV's, Oxygen, Telemetry, Pires Catheter Observation: Pt is weak and does not feel well. Interventions - ROM Right Upper Extremity AROM: WFL's Left Upper Extremity AROM: WFL's - Strength Right Upper Extremity Strength: Mild Weakness Left Upper Extremity Strength: Mild Weakness - Sensation Right Upper Extremity Sensation: Intact/Normal Left Upper Extremity Sensation: Intact/Normal Balance - Sitting Balance Static Sitting Balance: Fair Dynamic Sitting Balance: Fair - Standing Balance Static Standing Balance: Fair Dynamic Standing Balance: Fair ADL Skills - Self Feeding Self Feeding: Independent - Grooming Grooming: Min Assist - Bathing Bathing UE: Min Assist Bathing LE: Min Assist - Dressing Dressing UE: Min Assist Dressing LE: Min Assist - Toilet Management Toileting Management: Min Assist Functional Mobility - Bed Mobility Rolling R/L: CGA, 2 person assist Scooting: CGA Supine to Sit: CGA Sit to Supine: CGA - Transfers Sit to Stand: CGA Stand to Sit: CGA Stand Pivot Transfers: CGA - Ambulation Weight Bearing Status: FWB Assistive Device Used: No Assistive Device Assistance needed with Ambulation: CGA - Safety Awareness Safety Awareness: Good Additional Treatment Performed - Time with patient Total treatment time: 24 Activities Patient Interests:: Reading Books/Magazines, Puzzles/Games, Visiting/Socializing Patient Education Patient Education: Education of diagnosis, Education of Plan of Care Teaching Recipient: Patient Teaching Methods: Discussion Assessment Problem List:: Decreased level of function, Weakness Rehab Potential: Good Further Therapy Indicated?: Yes Short Term Goals - Goals GOAL 1: Pt to increase BUE strength to 4/5. Goal to be met by: 04/04/17 GOAL 2: Pt to tolerate sink level ADLS at CGA. Goal to be met by: 04/04/17 GOAL 3: Pt to tolerate standing balance to Good- for 10 minutes. Goal to be met by: 04/04/17 [facility] Goals GOAL 1: Pt to increase BUE strength to 4+/5. Goal to be met by: 04/10/17 GOAL 2: Pt to tolerate sink level ADLS at Indep. Goal to be met by: 04/10/17 GOAL 3: Pt to tolerate standing balance to Good- for 15 minutes. Goal to be met by: 04/10/17 Plan Plan of Care: Therapeutic EX, Neuromuscular Re-Educ, Therapeutic Activity, Self- Care/Home Management Frequency of Treatment: 1-2 X day, as tolerated Duration of Treatment: 2 Weeks Anticipated Discharge Destination: Home Has the Physician been added for Co-signature?: Yes
[2017-03-29] MEDS: PHENERGAN WITH CODEINE 6.25/10 MG/5 ML PO PRN (00:03)
[2017-03-29] MEDS: TORADOL IVP PRN (00:03)
[2017-03-29 05:25] VITALS: TEMP 97.9
[2017-03-29] MEDS: LEVAQUIN 500 MG in PREMIX 100 ML D5W 1 BAG IV SCH ×2 (08:33→08:58)
[2017-03-29] MEDS: CARDIZEM PO SCH (08:34)
[2017-03-29] MEDS: ZOCOR PO SCH (08:34)
[2017-03-29] MEDS: LEXAPRO PO SCH (08:34)
[2017-03-29] MEDS: ZESTRIL PO SCH (08:34)
[2017-03-29] MEDS: LOVENOX SUBCUT SCH (08:34)
[2017-03-29] MEDS: PREDNISONE PO SCH (08:34)
[2017-03-29] MEDS: LIBRIUM PO SCH (08:34)
[2017-03-29] MEDS: COREG PO SCH (08:39)
[2017-03-29] MEDS ORDERED: NORVASC PO SCH (09:00)
--- NOTE | 2017-03-29 09:58 | PCM.PROG ---
Attending Provider: ATTENDING PROVIDER: Dr. SAGE BISWAS This patient is seen with Cheri Zaragoza, Nurse Practitioner. DATE OF SERVICE: 03/29/17 SUBJECTIVE: This 81 year old WHITE/ F was hospitalized 03/24/17. The patient is lying in bed, alert. She is ready to go home. She states cough is significantly improved . REVIEW OF SYSTEMS: CONSTITUTIONAL: Weakness. No night sweats. No fever or chills. HEENT: Eyes: No visual changes. No eye pain. No eye discharge. ENT: No runny nose. No epistaxis. No sinus pain. No odynophagia. No congestion. RESPIRATORY: Cough and congestion. No hemoptysis. No shortness of breath. CARDIOVASCULAR: No angina symptoms. No CHF symptoms. No atypical chest pain for CAD. No palpitations. No orthopnea.. GASTROINTESTINAL: No abdominal pain. No nausea or vomiting. No diarrhea or constipation. No hematemesis. No hematochezia. GENITOURINARY: No urgency. No frequency. No dysuria. No hematuria. No obstructive symptoms. No discharge. No pain. No significant abnormal bleeding. MUSCULOSKELETAL: No musculoskeletal pain; no joint swelling. NEUROLOGICAL: Awake, alert, oriented to time, place and person. No headache. No neck pain. No syncope. No seizures. No dizziness. PSYCHIATRIC: Not anxious. No depression. No suicidal thoughts. No homicidal thoughts. SKIN: No rash. No lesions. No wounds. ENDOCRINE: No unexplained weight loss. No weight gain. HEMATOLOGIC/LYMPHATIC: No anemia. No purpura. No petechiae. No prolonged or excessive bleeding. No palpable lymph nodes. PHYSICAL EXAMINATION: GENERAL: The patient is awake, alert and oriented, lying/sitting in bed in no distress. VITAL SIGNS: Temperature 97.9 F, Pulse 63, Respiratory Rate 16, BP 89/45, Pulse Ox 95% HEENT: Head normocephalic, atraumatic. Eyes: Extraocular muscles are intact. Pupils are equal, round and reactive to light and accommodation. Ears: No lesions. Nose appeared normal. Throat: No exudate or erythema. NECK: Supple. No JVD, no carotid bruit. No lymphadenopathy or thyromegaly. LUNGS: Diminished breath sounds. Clear to auscultation. Percussion note normal. Chest symmetrical. HEART: S1, S2, no S3. No murmurs. No cyanosis or clubbing. No ascites. Pulses: Dorsalis pedis and posterior tibial pulses +1 to +2 both sides. ABDOMEN: Soft. Non-tender. Bowel sounds active. No CVA tenderness. No mass felt. EXTREMITIES: No edema. Full range of motion of all extremities, equal. NEUROLOGIC: No focal deficit. Cranial nerves II through XII are grossly intact. No headache, no double vision or headache. SKIN: Not dry. Intact. Turgor-normal. LYMPHATIC: No palpable lymph nodes/no lymphedema. MUSCULOSKELETAL: Normal joints with no swelling. Muscle tone is normal. LAB REVIEW: 03/29/17 05:00 03/29/17 05:00 03/29/17 05:00: Sodium 138, Potassium 4.3, Chloride 110 H, Carbon Dioxide 23, Anion Gap 9.3, BUN 48 H, Creatinine 0.98, Estimated GFR (MDRD) 55.00, BUN/ Creatinine Ratio 48.97, Glucose 164 H, Calcium 7.6 L, Total Bilirubin 0.3, AST 52 H, ALT 152 H, Alkaline Phosphatase 84, Total Protein 5.3 L, Albumin 2.6 L, Globulin 2.7, Albumin/Globulin Ratio 0.96 03/29/17 05:00: WBC 7.78, RBC 3.33 L, Hgb 9.7 L, Hct 29.1 L, MCV 87.4, MCH 29.1 , MCHC 33.3, RDW Coeff of Gerald 14.2, Plt Count 181, Immature Gran % (Auto) 0.8, Neut % (Auto) 83.4, Lymph % (Auto) 7.5 L, [place] % (Auto) 8.1, Eos % (Auto) 0.1, Baso % (Auto) 0.1, Immature Gran # (Auto) 0.1, Neut # 6.5, Lymph # 0.6, [place] # 0.6, Eos # 0.0, Baso # 0.0 ASSESSMENT: 1. Flu-type of symptoms with nausea/gastritis/bronchitis and chest pain all resolved 2. Cardiovascular status is stable PLAN: 1. D/C home 2. Encouraged the patient to drink plenty of water 3. Prednisone 20 mg daily times 5 days 4. Levaquin 250 mg daily times 5 days 5. Phenergan with Codeine p.r.n. 6. Will see the patient next week in the office 7. D/C Pires Plan and coordination of the patient's care discussed in the presence of Supervisor Long [employer]s and nurse. CONDITION: Stable SCRIBED BY: Kevin ZUÑIGAist scribed while in presence of service performed by Dr. Biswas/Cheri Zaragoza APRN on 03/29/17 ([id number])
[2017-03-29 10:21] VITALS: BP 90/56
--- NOTE | 2017-03-29 10:24 | CM.DICTOOL ---
ADMISSION: 03/24/17 16:04 DISCHARGE: 03/29/17 DATE OF SERVICE: 03/29/17 FINAL DIAGNOSIS CHEST PAIN BRONCHITIS CAD HTN CVA, 1998 COPD ANEMIA PAGETS DISEASE OSTEOARTHRITIS DEPRESSION/ANXIETY HYSTERECTOMY COLON RESECTION CHOLECYSTECTOMY BILATERAL CATARACT SURGERY CARDIAC STENTS LATE ESOPHAGEAL REPAIR LAST VITALS Temp Pulse Resp BP Pulse Ox 97.9 F 63 16 89/45 L 95 03/29/17 05:24 03/29/17 05:24 03/29/17 05:24 03/29/17 05:24 03/29/17 05:24 ACTIVE MEDICATIONS Amlodipine Besylate (Norvasc) 5 mg PO DAILY [facility] (DECREASED FROM 10 MG) Last Admin: 03/29/17 08:34 Dose: 5 mg Carvedilol (Coreg) 6.25 mg PO BIDWM [facility] Last Admin: 03/29/17 08:39 Dose: 6.25 mg Chlordiazepoxide HCl (Librium) 10 mg PO BID [facility] Last Admin: 03/29/17 08:34 Dose: 10 mg Diltiazem HCl (Cardizem) 60 mg PO Q12HR [facility] Last Admin: 03/29/17 08:34 Dose: 60 mg Escitalopram Oxalate (Lexapro) 20 mg PO DAILY [facility] Last Admin: 03/29/17 08:34 Dose: 20 mg Lisinopril (Zestril) 20 mg PO BID [facility] Last Admin: 03/29/17 08:34 Dose: 20 mg Lorazepam (Ativan) 0.5 mg PO BID PRN PRN Reason: Anxiety Last Admin: 03/25/17 20:12 Dose: 0.5 mg Meclizine HCl (Antivert) 12.5 mg PO BID PRN PRN Reason: Dizziness Simvastatin (Zocor) 40 mg PO DAILY [facility] Last Admin: 03/29/17 08:34 Dose: 40 mg ALLERGIES clarithromycin [From Biaxin] Adverse Reaction (Verified 03/24/17 13:32) Penicillins Adverse Reaction (Verified 03/24/17 13:32) Sulfa (Sulfonamide Antibiotics) Adverse Reaction (Verified 03/24/17 13:32) NEW PRESCRIPTIONS: LEVAQUIN 250 MG, TAKE ONE TABLET BY MOUTH DAILY FOR 5 DAYS PREDNISONE 20 MG, TAKE ONE TABLET BY MOUTH DAILY WITH FOOD FOR 5 DAYS PHENERGAN WITH CODEINE 6.25/10 MG/5ML, TAKE 5 ML TWICE DAILY NEEDED FOR COUGHING SMOKING: CURRENT EVERY DAY SMOKER (2 CIGS PER DAY) THE PATIENT HAS RECEIVED INSTRUCTION/INFORMATION REGARDING THE ADVERSE EFFECTS OF SMOKING ON HER CARDIOPULMONARY/VASCULAR HEALTH. SHE HAS NOT VERBALIZED HER INTENT FOR CESSATION. SHE WILL BENEFIT FROM CONTINUED TEACHING/ENCOURAGEMENT FOR COMPLETE CESSATION IN THE OUTPATIENT SETTING. DISEASE SPECIFIC EDUCATION: BRONCHITIS PLEURITIC PAIN HOME MEDICATIONS NEW PRESCRIPTIONS EFFECTS OF SENIOR CARE STEROID USE FOLLOW UP LAB REVIEW: 03/29/17 05:00 03/29/17 05:00 03/29/17 05:00: Sodium 138, Potassium 4.3, Chloride 110 H, Carbon Dioxide 23, Anion Gap 9.3, BUN 48 H, Creatinine 0.98, Estimated GFR (MDRD) 55.00, BUN/ Creatinine Ratio 48.97, Glucose 164 H, Calcium 7.6 L, Total Bilirubin 0.3, AST 52 H, ALT 152 H, Alkaline Phosphatase 84, Total Protein 5.3 L, Albumin 2.6 L, Globulin 2.7, Albumin/Globulin Ratio 0.96 03/29/17 05:00: WBC 7.78, RBC 3.33 L, Hgb 9.7 L, Hct 29.1 L, MCV 87.4, MCH 29.1 , MCHC 33.3, RDW Coeff of Gerald 14.2, Plt Count 181, Immature Gran % (Auto) 0.8, Neut % (Auto) 83.4, Lymph % (Auto) 7.5 L, [place] % (Auto) 8.1, Eos % (Auto) 0.1, Baso % (Auto) 0.1, Immature Gran # (Auto) 0.1, Neut # 6.5, Lymph # 0.6, [place] # 0.6, Eos # 0.0, Baso # 0.0 PLAN: DISCHARGE HOME TODAY RETURN TO SEE DR. MCCORMACK IN HIS OFFICE ON 04/05/17 AT 11:15 A.M. RESUME YOUR HOME MEDICATIONS PER LIST PROVIDED BY THE NURSING STAFF NEW PRESCRIPTIONS LEVAQUIN 250 MG, TAKE ONE TABLET BY MOUTH DAILY FOR 5 DAYS PREDNISONE 20 MG, TAKE ONE TABLET BY MOUTH DAILY WITH FOOD FOR 5 DAYS PHENERGAN WITH CODEINE 6.25/10 MG/5ML, TAKE 5 ML TWICE DAILY NEEDED FOR COUGHING ACTIVITY GET PLENTY OF REST AT HOME. GRADUALLY INCREASE YOUR ACTIVITY LEVEL ACCORDING TO YOUR TOLERATION DIET HEALTHY HEART SUMMARY THE PATIENT IS ALERT AND ORIENTED X3. SHE CURRENTLY RESIDES WITH HER SON AND [id number]. SHE HAS BEEN INDEPENDENT WITH ADL'S AND HAS NOT REQUIRED ANY DME, HOME HEALTH OR HOMEMAKING SERVICES. SHE DESIRES TO RETURN HOME WITH HER SON. HER SKIN TURGOR IS INTACT AND WITHOUT DECUBITUS ULCERS. HYDRATION AND NUTRITIONAL STATUS ARE GOOD. MS. LITTLE IS AFEBRILE AND SAYS SHE FEELS MUCH BETTER. SHE IS AWARE AND AGREEABLE FOR TODAY'S DISCHARGE PLANS. CURRENT CODE STATUS FULL CODE TIBURCIO VALDIVIA APRN SAGE MCCORMACK M.D.
--- NOTE | 2017-03-29 13:16 | PN ---
DATE OF SERVICE: 03/26/17 81 year old white female hospitalized with chest pain. The patient's condition has improved. She is feeling better. No chest pain. Nausea still persists, but appetite has improved. Cardiac workup is negative. The patient was seen and examined with the nurse practitioner. ALEXUS
--- NOTE | 2017-03-29 14:22 | PN ---
DATE OF SERVICE: 03/27/17 SUBJECTIVE: Lucy Villavicencio was hospitalized with chest pain, bronchitis and flu type of symptoms. Condition has improved. We will decrease the fluids to 30 cc. Nausea is much better. We will put her on Xopenex. Her cardiovascular status stable with no evidence of coronary insufficiency at rest or acute myocardial event. PHYSICAL EXAMINATION: LUNGS: Decreased breath sounds, but clear. No wheeze. HEART: S1, S2 no S3. We will continue Solu-Cortef. CONDITION: Stabilizing. MTDD
--- NOTE | 2017-04-05 13:34 | PN ---
DATE OF SERVICE: 03/29/17 SUBJECTIVE: 81-year-old white female hospitalized with chest pain, bronchitis, flu-type of symptoms. The patient's condition has improved remarkably with practically no nausea. Her blood pressure is on the low side so Norvasc wouid be reduced to 5 mg. PHYSICAL EXAMINATION: HEENT: Head normocephalic, atraumatic. Eyes: Extraocular muscles are intact. Pupils are equal, round and reactive to light and accommodation. Ears: No lesions. Nose appeared normal. Throat: No exudate or erythema. NECK: Supple. No JVD, no carotid bruit. No lymphadenopathy or thyromegaly. LUNGS: Clear to auscultation. Percussion note normal. Chest symmetrical. HEART: S1, S2, no S3. No murmurs. No cyanosis or clubbing. No ascites. Pulses: Dorsalis pedis and posterior tibial pulses +1 to +2 both sides. ABDOMEN: Soft. Nontender. Bowel sounds active. No CVA tenderness. No mass felt. EXTREMITIES: No edema. Full range of motion of all extremities, equal. NEUROLOGIC: No focal deficit. Cranial nerves II through XII are grossly intact. No headache, no double vision or headache. SKIN: Not dry. Intact. Turgor - normal. LYMPHATIC: No palpable lymph nodes/no lymphedema. MUSCULOSKELETAL: Normal joints with no swelling. Muscle tone is normal. PLAN: The patient will be discharged on Levaquin, Prednisone and Phenergan with Codeine. The patient was seen and examined with the nurse practitioner. TIME SPENT: More than 30 minutes. Plan and coordination of the patient's care discussed in the presence of nurse. ALEXUS
--- NOTE | 2017-04-05 13:35 | PN ---
CODING FOR BILLING 03/24/17 LEVEL 5 03/25/17 INTERMEDIATE 03/26/17 INTERMEDIATE 03/27/17 BRIEF 03/28/17 BRIEF 03/29/17 DISCHARGE MTDD
--- NOTE | 2017-04-23 11:54 | DS ---
DATE OF SERVICE: 03/29/17 FINAL DIAGNOSIS: 1. CHEST PAIN 2. BRONCHITIS 3. CAD 4. HYPERTENSION 5. CVA, 1998 6. COPD 7. ANEMIA 8. PAGET'S DISEASE 9. OSTEOARTHRITIS 10. DEPRESSION/ANXIETY 11. HYSTERECTOMY 12. COLON RESECTION 13. CHOLECYSTECTOMY 14. BILATERAL CATARACT SURGERY 15. CARDIAC STENTS LATE 16. ESOPHAGEAL REPAIR DISCHARGE INSTRUCTIONS: Followup appointment: Return to see Dr. Biswas in his office on 04/05/17 at 11: 15 a.m. MEDICATIONS AT DISCHARGE: Norvasc 5 mg p.o. daily YAW (decreased from 10 mg) Coreg 6.25 mg p.o. b.i.d. with meal YAW Librium 10 mg p.o. b.i.d. YAW Cardizem 60 mg p.o. q.12hr YAW Lexapro 20 mg p.o. daily YAW Zestril 20 mg p.o. b.i.d. YAW Ativan 0.5 mg p.o. b.i.d. p.r.n. Antivert 12.5 mg p.o. b.i.d. p.r.n. Zocor 40 mg p.o. daily YAW NEW PRESCRIPTIONS: Levaquin 250 mg one p.o. daily for five days Prednisone 20 mg one p.o. with food for five days Phenergan with Codeine 6.25/10 mg/5 mL take 5 mL twice daily as needed for coughing DIET INSTRUCTIONS: Healthy Heart ACTIVITY: Get plenty of rest at home. Gradually increase your activity level according to your toleration. SMOKING: Current every day smoker (2 cigarettes per day) DISEASE SPECIFIC EDUCATION: Bronchitis Pleuritic pain Home medications New prescriptions Effects of mcc steroid use Follow up HOSPITAL COURSE: This is an 81-year-old female who presented complaining of pleuritic type pain, coughing, achy, low grade fever, very weak, flu-like symptoms however, she tested negative for the flu. Chest x-ray revealed changes associated with bronchitis. Her pain was consistent with pleuritic pain. She presented to the emergency room complaining of these symptoms and stated she had been feeling this way for the past several days. She was subsequently admitted, placed on IV Solu-Medrol 125 mg IV q.8hr, started on Phenergan with Codeine for her cough , started on 500 mg of Levaquin IV daily. Over the course of several days after the first 24 to 48 hours, she remained afebrile. She was wheezing and somewhat short of breath upon admission and the first two days of her hospital stay. After approximately 2 days, her wheezing seemed to resolve, weakness remained. Her kidney function was slightly elevated on admission likely due to dehydration and fever. Her blood pressure was running low. It is still running low at discharge. We will decrease her Norvasc to 5 mg daily for her to start at home. She has improved remarkably well from admission. She still is somewhat weak but her vital signs have been stable. Temperature 97.9, heart rate 63, respirations 16, BP 95/52, pulse ox 95% on room air. She has been up and about in her room and eating well for the past 48 hours. Her labs have all remained stable, sodium 138, potassium 4.3, BUN 48, creatinine 0.98. White count 7.78, hemoglobin 9.7, hematocrit 29.1, platelets 181. Telemetry shows that she has remained in normal sinus rhythm during the course of her stay. We will send her home on Levaquin. We will send her home on Levaquin 500 mg p.o. daily for the next five days along with Prednisone 20 mg daily for the next five days and Phenergan with Codeine cough syrup. She will followup with us next week. Again, she is discharged in stable condition. She is no longer wheezing. Her cough has improved. She is eating well. She has no pleuritic pain at this time. No pain with coughing or inspiration and expiration. Will see her next week. TIME SPENT: More than 60 minutes. ALEXUS
== END 2017-03-29 10:35 | disposition home or self-care (01) | DRG 392 ==
LOC: ED 13:23 → MEDSURG B 16:04
PROVIDERS: ADMIT Internal Medicine; ATTEND Internal Medicine
DX: K52.9 Noninfective gastroenteritis and colitis, unspecified (principal); J20.8 Acute bronchitis due to other specified organisms; R07.81 Pleurodynia; R06.02 Shortness of breath; R50.9 Fever, unspecified; R00.0 Tachycardia, unspecified; E86.0 Dehydration; I25.10 Atherosclerotic heart disease of native coronary artery without angina pectoris; I10 Essential (primary) hypertension; J44.9 Chronic obstructive pulmonary disease, unspecified; D64.9 Anemia, unspecified; M19.90 Unspecified osteoarthritis, unspecified site; F41.8 Other specified anxiety disorders; F17.210 Nicotine dependence, cigarettes, uncomplicated; Z86.73 Personal history of transient ischemic attack (TIA), and cerebral infarction without residual deficits; Z95.5 Presence of coronary angioplasty implant and graft; Z90.49 Acquired absence of other specified parts of digestive tract; Z79.899 Other long term (current) drug therapy; Z98.890 Other specified postprocedural states
CPT/HCPCS: 36415; 80048; 80053; 82550; 83605; 84145; 84439; 84443; 84484; 85025; 87040; 87502; 93005; 93010; 94640; 99284

== ENCOUNTER 2017-07-02 13:26 | Inpatient (IN) ==
[2017-07-02 13:38] VITALS: BMI 25.9
[2017-07-02] MEDS ORDERED: VISTARIL INJ IM PRN (13:43)
[2017-07-02] MEDS ORDERED: ATROPINE SULFATE PFS IVP PRN (13:43)
--- NOTE | 2017-07-02 14:59 | DI ---
EXAM: Chest two views HISTORY: Chest pain COMPARISON: 03/24/2017 TECHNIQUE: Two views of the chest were performed FINDINGS: The lungs are clear. There is no pleural effusion or pneumothorax. The heart is normal i n size. The mediastinal contour is unchanged, noting atherosclerosis. There are no acute abnormalit ies of the bones. Surgical clips in the epigastric region. Surgical clips in the upper thorax and lef t neck. IMPRESSION: No acute cardiopulmonary process.
[2017-07-02] MEDS: LIBRIUM PO SCH ×3 (15:14→20:56)
[2017-07-02] MEDS: COREG PO SCH ×2 (15:15→18:01)
[2017-07-02] MEDS: LOVENOX SUBCUT SCH (15:15)
--- NOTE | 2017-07-02 15:18 | US ---
EXAM: Bilateral carotid artery Doppler History: Chest pain. Comparison: Carotid Doppler 12/14/2015 Technique: Multiple sonographic images through the bilateral internal carotid arteries were obtained . Color duplex Doppler was used to interrogate vascular flow. Findings: The right ICA peak systolic velocity is within normal limits measuring 1.1 meters per second. The ri ght ICA/cca PSV ratio is normal at 1.5. The right vertebral artery is patent and demonstrates antegr thomas flow. Walls scale images demonstrate mild to moderate plaque buildup within the right internal ca rotid artery. The left ICA peak systolic velocities within normal limits measuring 0.8 meters per second. The left ICA/cca PSV ratio is normal at 1.3. The left vertebral artery is patent and demonstrates antegrade flow. Walls scale images demonstrate mild to moderate plaque buildup within the left internal carotid artery. Impression: No significant hemodynamic stenosis of the bilateral internal carotid arteries.
[2017-07-02] MEDS: TAGAMET PO SCH (20:56)
[2017-07-02] MEDS ORDERED: ZESTRIL PO SCH (21:00)
[2017-07-02] MEDS ORDERED: CARDIZEM PO SCH (21:00)
[2017-07-02] MEDS ORDERED: NORVASC PO SCH (21:00)
[2017-07-02] MEDS ORDERED: COREG PO SCH (21:00)
[2017-07-02] MEDS ORDERED: LISINOPRIL 20 MG PO SCH (21:00)
[2017-07-03] MEDS: ZOFRAN 4 MG/2 ML IVP PRN ×3 (02:00→20:24)
[2017-07-03] MEDS ORDERED: SODIUM CHLORIDE 250 ML IV ONE (02:14)
[2017-07-03] MEDS: SODIUM CHLORIDE 1,000 ML IV SCH ×4 (05:39→22:01)
[2017-07-03] MEDS ORDERED: ASPIRIN CHEWABLE PO SCH (08:00)
[2017-07-03] MEDS: ASPIRIN EC PO SCH (08:39)
[2017-07-03] MEDS: LEXAPRO PO SCH (08:40)
[2017-07-03] MEDS: LIBRIUM PO SCH ×3 (08:40→21:49)
[2017-07-03] MEDS: COREG PO SCH ×3 (08:40→16:55)
[2017-07-03] MEDS: LOVENOX SUBCUT SCH (08:41)
[2017-07-03] MEDS: TAGAMET PO SCH ×2 (08:41→21:49)
[2017-07-03] MEDS ORDERED: NON-FORMULARY MEDICATION (Escitalopram Oxalate [Escitalopram Oxalate] 20 MG) PO SCH (09:00)
--- NOTE | 2017-07-03 09:03 | HP ---
DATE OF SERVICE: 07/02/17 REASON FOR HOSPITALIZATION/HISTORY OF PRESENT ILLNESS: Heart feels like beating fast- got up at 4am. Nauseated, shaky starting this morning. Heaviness in the chest. Weakness this AM 6-8 hours. PAST MEDICAL HISTORY: Hypertension CAD with stent Depression Anemia Paget's disease Carotid Endarterectomy 05/03 B 12 deficiency PAST SURGICAL HISTORY: T&A Gallbladder [place] Stomach blockage Appendectomy The patient thinks that all surgeries were in the 1970s REVIEW OF SYSTEMS: CONSTITUTIONAL: No fever, Fatigue. HEENT: No sinus drainage, no sore throat. RESPIRATORY: No cough, no congestion. CARDIOVASCULAR: Atypical chest pain for coronary artery disease. No angina, CHF symptoms. Palpitations and mild shortness of breath. GASTROINTESTINAL: No melena or abdominal pain. No GERD. GENITOURINARY: No hematuria, no prostatism, no polyuria. BIOMEDICAL ENGINEERING TECHNOLOGIST: No blackout, no dizziness, no headache, no double vision. MUSCULOSKELETAL: Osteoarthritis pain, no joint swelling. ENDOCRINE: No weight loss, no weight gain. SKIN: Not dry, no rash. PSYCHIATRIC: Anxious, no depression, no suicidal thoughts, no homicidal thoughts. SOCIAL HISTORY: Marital Status: . Alcohol Usage: No. Tobacco Usage: Yes. FAMILY HISTORY: Father - unknown Mother -[place] Brother 2-1/2 brothers Sister 2-1/2 sisters. The patient was raised by her grandparents and has little knowledge of family. MEDICATIONS: Ativan 0.4,g PO two times per day PRN Cimetidine 400mg PO two times per day in the morning and at bedtime Tramadol 50mg PO two times per day as needed Antivert 12.5mg PO two times per day as needed Cardizem 60mg PO two times per day one tablet PO twice a day daily Coreg 6.25mg PO two times per day with food Fosamax 70mg PO one time per week Lexapro 20mg PO once daily Norvasc 10mg PO once daily Librium 10mg PO two times per day Lisinopril 20mg two times per day Simvastatin 40mg PO in the evening Aspirin 81mg PO daily ALLERGIES: Penicillin Sulfa PHYSICAL EXAMINATION: V/S: Pulse 120, blood pressure 182/82, oxygen saturation 99%. GENERAL APPEARANCE: Oriented times three. HEENT: Normal. NECK: No JVP, no bruits. RESPIRATORY: Lungs are clear. CARDIOVASCULAR: S1, S2, no S3 tachy. No murmurs. No cyanosis, clubbing. No ascites. GI/ABDOMEN: No tenderness. Bowel sounds are active. EXTREMITIES: edema, pulses +1, equal. BIOMEDICAL ENGINEERING TECHNOLOGIST: Deep tendon reflexes, sensory, motor and gait all normal. RECTAL: 4-15 Dr. Keen/PELVIC: Advised yearly, pt refused. ASSESSMENT: 1. Chest heaviness/chest pain/ palpitations rule out AL/Ischemia 2. Smoking 3. Hives with stress 4. CAD status post 2002, Dr. Damon-1st [id number] 5. Depression 6. KEENA 7. Dyslipidemia 8. Anemia 9. History compression fracture 10.Paget's 11.CEA Left 2002 12.B12 deficiency PLAN: 1. Admit- special care 2. Routine telemetry orders 3. Coreg 12.5mg PO now and twice a day 4. Continue all home medication 5. Carotid scan 6. ABG 7. Librium 20mg PO now and three times a day 8. Zofran 4mg IV now and Q 6 hours PRN 9. Lovenox 60mg stat now and QAM ADDENDUM: Carotid scan showed no significant no hemodynamic stenosis of the bilateral carotid arteries. Chest x-ray showed no acute cardiopulmonary processes. ABG's on room air pH 7.482, pCO2 30.5, pO2 89, base excess of -1, bicarb 22.8, TCO2 24 , O2 saturation 98%. WBC 7.37, hgb 12.4, hct 37.4, plt count 247. TIME SPENT: More than 70 minutes. MTDD
--- NOTE | 2017-07-03 09:49 | PCM.PROG ---
Attending Provider: ATTENDING PROVIDER: Dr. SAGE MCCORMACK This patient is seen with Cheri Zaragoza, Nurse Practitioner. DATE OF SERVICE: 07/03/17 SUBJECTIVE: This 82 year old WHITE/ F was hospitalized 07/02/17. The patient is alert, resting comfortably. No chest pain during the night. She did have episode of nausea. She had two episodes of hypotension with lowest BP 67/33. She has improved after 250 cc bolus. Will hold blood pressure medicines this morning. Cardiac enzymes and telemetry have been normal since admission. REVIEW OF SYSTEMS: CONSTITUTIONAL: Weakness. No night sweats. No malaise, lethargy. No fever or chills. HEENT: Eyes: No visual changes. No eye pain. No eye discharge. ENT: No runny nose. No epistaxis. No sinus pain. No odynophagia. No congestion. RESPIRATORY: No cough, no congestion. No hemoptysis. No shortness of breath. CARDIOVASCULAR: No angina symptoms. No CHF symptoms. No atypical chest pain for CAD. No palpitations. No orthopnea.. GASTROINTESTINAL: Positive for nausea. No abdominal pain. No vomiting. No diarrhea or constipation. No hematemesis. No hematochezia. GENITOURINARY: No urgency. No frequency. No dysuria. No hematuria. No obstructive symptoms. No discharge. No pain. No significant abnormal bleeding. MUSCULOSKELETAL: No musculoskeletal pain; no joint swelling. NEUROLOGICAL: Awake, alert, oriented to time, place and person. No headache. No neck pain. No syncope. No seizures. No dizziness. PSYCHIATRIC: Not anxious. No depression. No suicidal thoughts. No homicidal thoughts. SKIN: No rash. No lesions. No wounds. ENDOCRINE: No unexplained weight loss. No weight gain. HEMATOLOGIC/LYMPHATIC: No anemia. No purpura. No petechiae. No prolonged or excessive bleeding. No palpable lymph nodes. PHYSICAL EXAMINATION: GENERAL: The patient is awake, alert and oriented, lying in bed in no distress. VITAL SIGNS: Temperature 97.8 F, Pulse 63, Respiratory Rate 20, BP 90/52, Pulse Ox 99% HEENT: Head normocephalic, atraumatic. Eyes: Extraocular muscles are intact. Pupils are equal, round and reactive to light and accommodation. Ears: No lesions. Nose appeared normal. Throat: No exudate or erythema. NECK: Supple. No JVD, no carotid bruit. No lymphadenopathy or thyromegaly. LUNGS: Clear to auscultation. Percussion note normal. Chest symmetrical. HEART: S1, S2, no S3. No murmurs. No cyanosis or clubbing. No ascites. Pulses: Dorsalis pedis and posterior tibial pulses +1 to +2 both sides. ABDOMEN: Soft. Non-tender. Bowel sounds active. No CVA tenderness. No mass felt. EXTREMITIES: No edema. Full range of motion of all extremities, equal. NEUROLOGIC: No focal deficit. Cranial nerves II through XII are grossly intact. No headache, no double vision or headache. SKIN: Not dry. Intact. Turgor-normal. LYMPHATIC: No palpable lymph nodes/no lymphedema. MUSCULOSKELETAL: Normal joints with no swelling. Muscle tone is normal. LAB REVIEW: 07/03/17 04:45 07/03/17 04:45 07/03/17 04:45: Sodium 138, Potassium 4.3, Chloride 107, Carbon Dioxide 24, Anion Gap 11.3, BUN 15, Creatinine 1.11, Estimated GFR (MDRD) 47.00, BUN/ Creatinine Ratio 13.51, Glucose 123 H, Calcium 8.7, Total Bilirubin 0.5, AST 17 , ALT 13, Alkaline Phosphatase 71, Total Protein 5.6 L, Albumin 2.9 L, Globulin 2.7, Albumin/Globulin Ratio 1.07 07/03/17 04:45: WBC 6.06, RBC 3.79 L, Hgb 11.0 L, Hct 33.6 L, MCV 88.7, MCH 29.0 , MCHC 32.7, RDW Coeff of Gerald 13.7, Plt Count 217, Immature Gran % (Auto) 0.5, Neut % (Auto) 48.8, Lymph % (Auto) 36.5, [place] % (Auto) 11.4 H, Eos % (Auto) 2.0 , Baso % (Auto) 0.8, Immature Gran # (Auto) 0.0, Neut # (Auto) 3.0, Lymph # ( Auto) 2.2, [place] # (Auto) 0.7, Eos # (Auto) 0.1, Baso # (Auto) 0.1 07/02/17 21:26: Total Creatine Kinase 45, Troponin I 0.0340 07/02/17 13:50: Total Creatine Kinase 52, Troponin I 0.0200 07/02/17 13:50: Sodium 139, Potassium 4.3, Chloride 106, Carbon Dioxide 21 L, Anion Gap 16.3, BUN 12, Creatinine 0.85, Estimated GFR (MDRD) 64.00, BUN/ Creatinine Ratio 14.11, Glucose 95, Calcium 9.2, Total Bilirubin 0.6, AST 21, ALT 16, Alkaline Phosphatase 84, Total Protein 6.9, Albumin 3.6, Globulin 3.3, Albumin/Globulin Ratio 1.09 07/02/17 13:50: WBC 7.37, RBC 4.28, Hgb 12.4, Hct 37.4, MCV 87.4, MCH 29.0, MCHC 33.2, RDW Coeff of Gerald 13.7, Plt Count 247, Immature Gran % (Auto) 0.4, Neut % (Auto) 56.8, Lymph % (Auto) 30.7, [place] % (Auto) 10.4 H, Eos % (Auto) 1.2 , Baso % (Auto) 0.5, Immature Gran # (Auto) 0.0, Neut # (Auto) 4.2, Lymph # ( Auto) 2.3, [place] # (Auto) 0.8, Eos # (Auto) 0.1, Baso # (Auto) 0.0 07/02/17 13:47: Puncture Site Rr, O2 Saturation 98.0, ABG pH 7.482 H, ABG pCO2 30.5 L, ABG pO2 89.0, ABG HCO3 22.8, ABG Total CO2 24, ABG Base Excess -1, Cosme Test +, FiO2 % 21.0 ASSESSMENT: 1. CHEST PAIN IMPROVED 2. PALPITATIONS IMPROVED 3. HYPOTENSION 4. ANXIETY 5. CORONARY ARTERY DISEASE 6. COPD - SMOKER PLAN: 1. Hold Lisinopril and Norvasc this a.m. 2. D/C Norvasc 2. Decrease Coreg 6.25 mg b.i.d. 3. Hold Cardizem this a.m. 4. Continue IV fluids 5. Monitor closely Plan and coordination of the patient's care discussed in the presence of Joint Creaser and nurse. CONDITION: Stable SCRIBED BY: Ridge ZUÑIGA scribed while in presence of service performed by Dr. Mccormack/Cheri Zaragoza APRN on 07/03/17 ([id number])
[2017-07-03] MEDS: MORPHINE 4 MG/ML VIAL IVP PRN ×2 (13:45→20:07)
[2017-07-03] MEDS: NITROSTAT SL PRN ×3 (13:48→20:07)
[2017-07-03] MEDS: TORADOL IVP SCH ×2 (14:19→22:05)
[2017-07-03] MEDS: PROTONIX PO SCH ×2 (14:19→16:55)
[2017-07-03] MEDS ORDERED: GI COCKTAIL PO STA (20:22)
[2017-07-04] MEDS: TYLENOL PO PRN (03:51)
[2017-07-04] MEDS: SODIUM CHLORIDE 1,000 ML IV SCH ×3 (04:59→22:39)
[2017-07-04] MEDS: TORADOL IVP SCH ×2 (05:34→15:55)
[2017-07-04] MEDS: PROTONIX PO SCH ×2 (05:34→17:13)
[2017-07-04] MEDS: ASPIRIN EC PO SCH (07:58)
[2017-07-04] MEDS: LEXAPRO PO SCH (07:59)
[2017-07-04] MEDS: COREG PO SCH ×2 (07:59→17:14)
[2017-07-04] MEDS: LOVENOX SUBCUT SCH (08:00)
[2017-07-04] MEDS: TAGAMET PO SCH ×2 (08:00→20:13)
[2017-07-04] MEDS: LIBRIUM PO SCH ×3 (08:00→20:13)
[2017-07-04] MEDS ORDERED: NORVASC PO SCH (09:00)
[2017-07-04] MEDS ORDERED: FOSAMAX PO SCH (09:00)
--- NOTE | 2017-07-04 11:46 | CT ---
EXAM: CT abdomen pelvis without contrast HISTORY: Chest pain with nausea. Patient with history of gastric bypass, cholecystectomy, esophagea l repair and prior hysterectomy. COMPARISON: CT abdomen pelvis 05/25/2015 TECHNIQUE: Serial axial images of the abdomen pelvis were performed from the lung bases through the inferior pelvis without contrast. These were viewed in multiple planes. FINDINGS: There is mild bibasilar atelectasis. Limited evaluation was performed due to lack of contrast. The liver is unremarkable. The gallbladde r has been removed. The adrenal glands are unremarkable. The kidneys are normal. There is no hydro nephrosis or hydroureter. The spleen is normal. The pancreas is unremarkable. The stomach is mildl y distended with postsurgical changes. The small bowel in the abdomen pelvis is unremarkable. The colon demonstrates diverticulosis without diverticulitis. Urinary bladder is distended. There has been a prior hysterectomy. There is no fr ee air or free fluid. There is moderate atherosclerotic disease. There is mild multilevel degenerat abimael disease of the spine. IMPRESSION: 1. No acute intra-abdominal or pelvic process to account for patient's symptoms. 2. Prior cholecystectomy , hysterectomy and surgical changes at the GE junction and the proximal gas tric body. 3. Diverticulosis without diverticulitis.
--- NOTE | 2017-07-04 12:04 | CT ---
EXAM: CT chest without contrast HISTORY: Chest pain epigastric pain and chest tightness COMPARISON: Same day CT abdomen pelvis with multiple prior chest x-rays with most recent CT chest TECHNIQUE: Serial axial images of the chest were obtained from the lung apices to the upper abdomen without contrast. These were viewed in multiple planes. FINDINGS: The thyroid is normal. The visualized vessels demonstrate mild atherosclerotic disease of the aorta. Pulmonary arteries are upper limit of normal. The heart is normal in size without peric ardial effusion. There are no pathologically enlarged mediastinal or hilar lymph nodes. There is no pneumothorax or pleural effusion. There is mild bibasilar atelectasis. There is minimal bilateral lower lobe airway thickening. The central airways are patent. There is no discrete pulmon britni nodule. The consolidation in the left lower lobe with airway thickening is new in comparison to 2016. The soft tissues in the upper abdomen demonstrate postsurgical changes as described in the same day C T abdomen pelvis. IMPRESSION: 1. No acute cardiopulmonary process with mild bilateral lower lobe atelectasis versus consolidation. 2. No additional abnormalities identified to account for patient's symptoms.
--- NOTE | 2017-07-04 13:16 | PCM.PROG ---
Attending Provider: ATTENDING PROVIDER: Dr. SAGE MCCORMACK DATE OF SERVICE: 07/04/17 SUBJECTIVE: This 82 year old WHITE/ F was hospitalized 07/02/17 with chest pain. The patient's chest pain was fairly atypical for coronary insufficiency. Cardiac markers negative so far. The patient wants to go home. Yesterday she declined any further workup in the way of CT chest or anything. She wanted to be comfortable with pain medication. Hypotension was triggered by Nitroglycerin sublingual and Morphine Sulfate combination. Systolic blood pressure is 94. Now she says she has mostly epigastric pain. Liver enzymes have become markedly abnormal within 24 hours. Amylase and lipase normal. REVIEW OF SYSTEMS: CONSTITUTIONAL: No night sweats. No fatigue, malaise, lethargy. No fever or chills. HEENT: Eyes: No visual changes. No eye pain. No eye discharge. ENT: No runny nose. No epistaxis. No sinus pain. No odynophagia. No congestion. RESPIRATORY: No cough, no congestion. No hemoptysis. No shortness of breath. CARDIOVASCULAR: No angina symptoms. No CHF symptoms. No atypical chest pain for CAD. No palpitations. No orthopnea.. GASTROINTESTINAL: Tenderness in the epigastric area, questionable. No abdominal pain. No nausea or vomiting. No diarrhea or constipation. No hematemesis. No hematochezia. GENITOURINARY: No urgency. No frequency. No dysuria. No hematuria. No obstructive symptoms. No discharge. No pain. No significant abnormal bleeding. MUSCULOSKELETAL: No musculoskeletal pain; no joint swelling. NEUROLOGICAL: Awake, alert, oriented to time, place and person. No headache. No neck pain. No syncope. No seizures. No dizziness. PSYCHIATRIC: Not anxious. No depression. No suicidal thoughts. No homicidal thoughts. SKIN: No rash. No lesions. No wounds. ENDOCRINE: No unexplained weight loss. No weight gain. HEMATOLOGIC/LYMPHATIC: No anemia. No purpura. No petechiae. No prolonged or excessive bleeding. No palpable lymph nodes. PHYSICAL EXAMINATION: GENERAL: The patient is awake, alert and oriented, lying/sitting in bed in no distress. VITAL SIGNS: Temperature 97.7 F, Pulse 69, Respiratory Rate 14, BP 94/57, Pulse Ox 94% HEENT: Head normocephalic, atraumatic. Eyes: Extraocular muscles are intact. Pupils are equal, round and reactive to light and accommodation. Ears: No lesions. Nose appeared normal. Throat: No exudate or erythema. NECK: Supple. No JVD, no carotid bruit. No lymphadenopathy or thyromegaly. LUNGS: Clear to auscultation. Percussion note normal. Chest symmetrical. HEART: S1, S2, no S3. No murmurs. No cyanosis or clubbing. No ascites. Pulses: Dorsalis pedis and posterior tibial pulses +1 to +2 both sides. ABDOMEN: Soft. Questionable tenderness in epigastric area. Bowel sounds active. No CVA tenderness. No mass felt. EXTREMITIES: No edema. Full range of motion of all extremities, equal. NEUROLOGIC: No focal deficit. Cranial nerves II through XII are grossly intact. No headache, no double vision or headache. SKIN: Warm and dry. Intact. Turgor-normal. LYMPHATIC: No palpable lymph nodes/no lymphedema. MUSCULOSKELETAL: Normal joints with no swelling. Muscle tone is normal. LAB REVIEW: 07/04/17 04:30 07/04/17 04:30 07/04/17 05:00: Amylase 67, Lipase 46 07/04/17 04:30: Sodium 137, Potassium 5.1, Chloride 110 H, Carbon Dioxide 21 L, Anion Gap 11.1, BUN 23 H, Creatinine 1.65 H D, Estimated GFR (MDRD) 30.00, BUN/ Creatinine Ratio 13.93, Glucose 143 H, Calcium 8.3, Total Bilirubin 0.8, AST 714 H D, ALT 524 H D, Alkaline Phosphatase 153 H D, Total Protein 5.4 L, Albumin 2.8 L, Globulin 2.6, Albumin/Globulin Ratio 1.08 07/04/17 04:30: WBC 6.18, RBC 3.30 L, Hgb 9.6 L, Hct 29.8 L, MCV 90.3, MCH 29.1 , MCHC 32.2, RDW Coeff of Gerald 14.0, Plt Count 166, Immature Gran % (Auto) 0.3, Neut % (Auto) 74.6, Lymph % (Auto) 15.9, [place] % (Auto) 8.4, Eos % (Auto) 0.5, Baso % (Auto) 0.3, Immature Gran # (Auto) 0.0, Neut # (Auto) 4.6, Lymph # (Auto ) 1.0, [place] # (Auto) 0.5, Eos # (Auto) 0.0, Baso # (Auto) 0.0 ASSESSMENT: 1. Questionable tenderness in epigastric area 2. Chest pain seems to have subsided with no evidence of coronary insufficiency or any other cardiac problems. 3. Abnormal liver profile 4. Status post cholecystectomy. Amylase and lipase are normal so will do CT of chest and abdomen. PLAN: 1. CT of chest without contrast 2. CT of abdomen without contrast 3. The patient does not want any further intervention in the way of procedure or surgery. She wants to go home but was convinced to stay. 4. Will monitor the patient's creatinine and BUN. 5. Do not give Nitroglycerin 6. Continue Coreg Plan and coordination of the patient's care discussed in the presence of Guest Relations Manager and nurse. CONDITION: Stable SCRIBED BY: NEIL LITTLE Control Chemist scribed while in presence of service performed by Dr. SAGE MCCORMACK on 07/04/17 ([id number])
[2017-07-04] MEDS: CARAFATE PO SCH (17:13)
[2017-07-04] MEDS: MORPHINE 4 MG/ML VIAL IVP PRN (19:09)
[2017-07-05] MEDS: PROTONIX PO SCH ×2 (05:51→17:13)
[2017-07-05] MEDS: CARAFATE PO SCH ×2 (05:51→17:13)
[2017-07-05] MEDS: TAGAMET PO SCH ×2 (10:54→21:01)
[2017-07-05] MEDS: LIBRIUM PO SCH ×3 (10:54→21:00)
[2017-07-05] MEDS: LEXAPRO PO SCH (10:55)
[2017-07-05] MEDS: LOVENOX SUBCUT SCH (10:56)
[2017-07-05] MEDS: ASPIRIN EC PO SCH (10:56)
[2017-07-05] MEDS: COREG PO SCH ×2 (10:56→17:14)
--- NOTE | 2017-07-05 12:56 | ECHO2D ---
Date of Exam: 07/04/17 Ordering Physician: DR. SAGE MCCORMACK Room #: SCU3 Reason for Echo: CAD, COPD, CHEST PAIN M-Mode Normal Adult Results LV Dimensions Normal Adult Results AoV Opening excursions >1.6 >1.6 LVEDD-base- 3.5-5.8 4.4 Ao root dimensions 2.0-3.7 3.3 LVESD-base- 3.1-4.6 L. Atrium dimensions 1.9-3.8 4.3 Post. Wall thickness 0.8-1.1 1.4 IV septum (thickness) 0.7-1.2 1.4 Post. Wall excursion 0.72-1.3 NORMAL Septal motion NORMAL Systolic motion R. Ventricular cavity 1.5-2.0 NORMAL LVEF 60% 74% Paradoxical septal wall motion NORMAL 2-D : 2-D M Mode Echocardiogram was performed using apical four chamber and left parasternal long and short axis views. Mitral, tricuspid and aortic valves appear to be normal. Contractility of the left ventricle seems to be normal, so is the cavity size. Enlarged Left atrial cavity size. Aortic roots appear to be normal. There is no pericardial effusion. There is no thrombus noted in the left ventricular or left aortic cavity. No mitral valve prolapse noted. M-MODE: MV: CALCIFIC MITRAL VALVE ANNULUS AV: NORMAL TV: NORMAL PV: CHAMBER SIZE: ENLARGED LEFT ATRIAL CAVITY WALL MOTION: NORMAL PERICARDIUM: NORMAL INTERPRETATION: 1. LEFT VENTRICULAR HYPERTROPHY WITH ENLARGED LEFT ATRIAL CAVITY 2. NORMAL LEFT VENTRICULAR CONTRACTILITY 3. NORMAL VALVES MTDD
[2017-07-05] MEDS: ZESTRIL ONE ×2 (21:01→21:04)
[2017-07-06] MEDS: PROTONIX PO SCH ×2 (05:32→16:53)
[2017-07-06] MEDS: CARAFATE PO SCH ×2 (05:32→16:53)
[2017-07-06] MEDS ORDERED: COREG PO SCH (08:00)
--- NOTE | 2017-07-06 08:59 | PN ---
DATE OF SERVICE: 07/03/17 SUBJECTIVE: 82 year old white female hospitalized with chest pain. The patient's chest pain seems to be noncardiac, atypical. The patient's cardiac markers are negative. EKG is abnormal showing LVH and also poor R Wave progression. The patient had episode of hypotension during pathology technician hours. The patient is going to be taken off all the anti-hypertensive medications except for Coreg, dose will be reduced. I discussed with the patient and she wants DNR. I explained to her that she she may need to have further workup in a way of CT angiogram,she declined. She said that why if you find something and I'm not a surgical candidate she said and she doesn't want any surgery. The patient is already on Lovenox 60mg per day in case that she has pulmonary embolism. She does not want to be transferred, she wants her pain to be controlled, comfort measures. The patient had another episode of chest pain in the afternoon time. EKG was done which is practically unchanged. The patient's heart rate is nearly 70-75 per minute, no sweating. She doesn't seem to be in distress. She says that it feels like her boobs are going to burst, ballooned out. The patient will be given Morphine Sulfate along with Toradol 30mg IV Q 8 hours. REVIEW OF SYSTEMS: CONSTITUTIONAL: No night sweats. No fatigue, malaise, lethargy. No fever or chills. HEENT: Eyes: No visual changes. No eye pain. No eye discharge. ENT: No runny nose. No epistaxis. No sinus pain. No sore throat. No odynophagia. No congestion. RESPIRATORY: No cough, no congestion. No hemoptysis. No shortness of breath. CARDIOVASCULAR: No angina symptoms. No CHF symptoms. No atypical chest pain for CAD. No palpitations. No orthopnea. GASTROINTESTINAL: No abdominal pain. No nausea or vomiting. No diarrhea or constipation. No hematemesis. No hematochezia. GENITOURINARY: No urgency. No frequency. No dysuria. No hematuria. No obstructive symptoms. No discharge. No pain. No significant abnormal bleeding. MUSCULOSKELETAL: No musculoskeletal pain; no joint swelling. NEUROLOGICAL: No headache. No neck pain. No syncope. No seizures. No dizziness. PSYCHIATRIC: Not anxious. No depression. No suicidal thoughts. No homicidal thoughts. SKIN: No rash. No lesions. No wounds. ENDOCRINE: No unexplained weight loss. No weight gain. HEMATOLOGIC/LYMPHATIC: No anemia. No purpura. No petechiae. No prolonged or excessive bleeding. No palpable lymph nodes. PHYSICAL EXAMINATION: HEENT: Head normocephalic, atraumatic. Eyes: Extraocular muscles are intact. Pupils are equal, round and reactive to light and accommodation. Ears: No lesions. Nose appeared normal. Throat: No exudate or erythema. NECK: Supple. No JVD, no carotid bruit. No lymphadenopathy or thyromegaly. LUNGS: Decreased breath sounds but clear to auscultation. Percussion note normal. Chest symmetrical. HEART: S1, S2, no S3. No murmurs. No cyanosis or clubbing. No ascites. Pulses: Dorsalis pedis and posterior tibial pulses +1 to +2 both sides. ABDOMEN: Soft. Nontender. Bowel sounds active. No CVA tenderness. No mass felt. EXTREMITIES: No edema. Full range of motion of all extremities, equal. NEUROLOGIC: No focal deficit. Cranial nerves II through XII are grossly intact. No headache, no double vision or headache. SKIN: Not dry. Intact. Turgor - normal. LYMPHATIC: No palpable lymph nodes/no lymphedema. MUSCULOSKELETAL: Normal joints with no swelling. Muscle tone is normal. I was again called in the evening for hypotension which was created by morphine sulfate and nitroglycerin that was given for her chest pain. I explained to the nursing staff not to given nitroglycerin the chest pain doesn't seem to be cardiac because she has been having this chest pain for past one week. By this time if it was chest pain coming from coronary artery disease she would have had multiple heart attacks. Stop Nitroglycerin because that is causing the hypotension. The patient will be given GI cocktail and Zofran IV. Continue Protonix. TIME SPENT: More than 30 minutes. Plan and coordination of the patient's care discussed in the presence of nurse. ALEXUS
[2017-07-06] MEDS: TAGAMET PO SCH ×2 (09:07→20:27)
[2017-07-06] MEDS: ASPIRIN EC PO SCH (09:07)
[2017-07-06] MEDS: COZAAR PO SCH (09:08)
[2017-07-06] MEDS: COREG PO SCH ×2 (09:08→16:53)
[2017-07-06] MEDS: LOVENOX SUBCUT SCH (09:08)
[2017-07-06] MEDS: LEXAPRO PO SCH (09:08)
--- NOTE | 2017-07-06 11:22 | PN ---
DATE OF SERVICE: 07/04/17 SUBJECTIVE: The patient had CT scan of the chest and CT scan of the abdomen done because of pain in the chest. Later on today she said that she never chest pain, she had a feeling like her boobs were going to bust with the epigastric pain at time. Liver profile became highly abnormal this morning. The patient is status Cholecystectomy. The patient's CT scan of the abdomen and pelvis along with CT scan of the chest with practically unremarkable. The patient's daughter came over to see him this morning and she saw DNR bracelet on his wrist and so she told her mom that she is not going to be a DNR. She needs to have full resuscitation. I talked to the patient later on and she said that I had to do what my daughter wanted me to do, I still don't want any intubation or respiratory or machines. I can not go against my daughter. In any case the patient was explained about all this x-ray reports. The patient is off her statin. The patient's blood pressure is steadily going up. Her urine output seems to be poor so IV fluids will be increased to 100cc per hour. She was given a couple boluses of IV fluids at night because of hypotension created by nitroglycerin. The patient does not have any pain at all for past 6-7 hours. She wants to go home. Again she declined any further referral or any tests including stress test. She said that she is not going to under go any of those kind of tests. The patient had an echocardiogram done which showed LVH with normal LV contractility with enlarged LA cavity. CONDITION: Stable. TIME SPENT: More than 60 minutes. Plan and coordination of the patient's care discussed in the presence of nurse. ALEXUS
--- NOTE | 2017-07-06 11:39 | PN ---
DATE OF SERVICE: 07/05/17 SUBJECTIVE: The patient is feeling better. She doesn't have any chest pain, chest discomfort and epigastric pain. Again I went through all the labs and the patient's reports from CT scan of chest and abdomen. All explained to her that we don't find any acute problems at present time. REVIEW OF SYSTEMS: CONSTITUTIONAL: No night sweats. No fatigue, malaise, lethargy. No fever or chills. HEENT: Eyes: No visual changes. No eye pain. No eye discharge. ENT: No runny nose. No epistaxis. No sinus pain. No sore throat. No odynophagia. No congestion. RESPIRATORY: No cough, no congestion. No hemoptysis. No shortness of breath. CARDIOVASCULAR: No angina symptoms. No CHF symptoms. No atypical chest pain for CAD. No palpitations. No orthopnea. GASTROINTESTINAL: No abdominal pain. No nausea or vomiting. No diarrhea or constipation. No hematemesis. No hematochezia. Appetite is not up to par. GENITOURINARY: No urgency. No frequency. No dysuria. No hematuria. No obstructive symptoms. No discharge. No pain. No significant abnormal bleeding. MUSCULOSKELETAL: No musculoskeletal pain; no joint swelling. NEUROLOGICAL: No headache. No neck pain. No syncope. No seizures. No dizziness. PSYCHIATRIC: Not anxious. No depression. No suicidal thoughts. No homicidal thoughts. SKIN: No rash. No lesions. No wounds. ENDOCRINE: No unexplained weight loss. No weight gain. HEMATOLOGIC/LYMPHATIC: No anemia. No purpura. No petechiae. No prolonged or excessive bleeding. No palpable lymph nodes. PHYSICAL EXAMINATION: GENERAL: The patient is oriented to time, place and person HEENT: Head normocephalic, atraumatic. Eyes: Extraocular muscles are intact. Pupils are equal, round and reactive to light and accommodation. Ears: No lesions. Nose appeared normal. Throat: No exudate or erythema. NECK: Supple. No JVD, no carotid bruit. No lymphadenopathy or thyromegaly. LUNGS: Decreased breath sounds but clear to auscultation. Percussion note normal. Chest symmetrical. HEART: S1, S2, no S3. No murmurs. No cyanosis or clubbing. No ascites. Pulses: Dorsalis pedis and posterior tibial pulses +1 to +2 both sides. ABDOMEN: Soft. Nontender. Bowel sounds active. No CVA tenderness. No mass felt. EXTREMITIES: No edema. Full range of motion of all extremities, equal. NEUROLOGIC: No focal deficit. Cranial nerves II through XII are grossly intact. No headache, no double vision or headache. SKIN: Not dry. Intact. Turgor - normal. LYMPHATIC: No palpable lymph nodes/no lymphedema. MUSCULOSKELETAL: Normal joints with no swelling. Muscle tone is normal. LABS: Improvement in liver functions. Creatinine 1.6, BUN 23 which seems to be stable. ASSESSMENT: 1. Chest pain was practically noncardiac by history, cardiovascular status is stable with normal echocardiogram with normal LV contractility with LVH with mildly enlarged LA cavity. PLAN: 1. The patient's urine output will monitor it. 2. Will also do Upper GI with Barium follow through. 3. The patient still declined to have anything else done today in a way of stress test like chemical stress test. 4. Will continue to monitor liver profile. 5. The patient's blood pressure is 110/58, oxygen saturation 91%. CONDITION: Stable. TIME SPENT: More than 30 minutes. Plan and coordination of the patient's care discussed in the presence of nurse. ALEXUS
--- NOTE | 2017-07-06 13:26 | RS.PTINEVL ---
Subjective - Patient information Date of Evaluation: 07/06/17 Date of Arrival on Unit: 07/02/17 Admitted From:: Home Diagnosis: chest pain, R/O ND, abnormal liver profile Usual Living Arrangement: daughter Living Arrangement Comments: Pt lives at home with family. Pt reports that they take care of each other. Pt reports she does not use an assistive device at this time. Home Environment: House, Level/No stairs Medical History: Hypertension Medical History Comments:: CAD, depression, anemia, paget's disease, LATEX ALLERGY?: No Surgical History: Cholecystectomy, Hysterectomy Surgical History Comments:: appey, JENSEN Medications: see chart Subjective Information/ Patient Comments:: pt states that she is tired today, but agreeable to try to amb. - Level of function Prior to this admission, the patient could do the following:: Independent Selfcare, Independent Ambulation Current Level of Function: Partially Dependent Interventions - Objective Patient Orientation: Person Current Interventions: Oxygen, Telemetry Observation: pt lethargic Range of Motion - ROM Right Upper Extremity AROM: WFL's Left Upper Extremity AROM: WFL's Right Lower Extremity AROM: WFL's Left Lower Extremity AROM: WFL's Muscle Strength - Muscle Strength Right Upper Extremity Strength: Mild Weakness (shld flex 3+/5, elbow flex/ext 4- /5) Left Upper Extremity Strength: Mild Weakness (shld flex 3+/5, elbow flex/ext 4-/ 5) Right Lower Extremity Strength: Mild Weakness (hip flex 3+/5, knee flex/ext 4-/5 , ankle DF/PF 4-/5) Left Lower Extremity Strength: Mild Weakness (hip flex 3+/5, knee flex/ext 4-/5 , ankle DF/PF 4-/5) Sensation - Sensation Right Upper Extremity Sensation: Intact/Normal Left Upper Extremity Sensation: Intact/Normal Right Lower Extremity Sensation: Intact/Normal Left Lower Extremity Sensation: Intact/Normal Palpation Palpation Findings: None/Normal Balance - Sitting Balance and Reactions Static Sitting Balance: Poor Dynamic Sitting Balance: Poor Sitting Equilibrium Reactions: Delayed Left, Delayed Right Sitting Protective Reactions: Absent Left, Absent Right - Standing Balance and Reactions Static Standing Balance: Poor Dynamic Standing Balance: Poor Standing Equilibrium Reactions: Delayed Left, Delayed Right Standing Protective Reactions: Delayed Left, Delayed Right - Comments Balance Assessment Comments: pt with episodes of LOB with amb required mod assist of 2 to regain balance. Functional Mobility - Bed Mobility Rolling R/L: Mod Assist, Max Assist, 1 person assist Scooting: Max Assist, 2 person assist Supine to Sit: Mod Assist, 1 person assist Sit to Supine: Max Assist, 1 person assist - Transfers Sit to Stand: Min Assist, Mod Assist, 2 person assist Stand to Sit: Mod Assist, 2 person assist - Safety Awareness Safety Awareness: Poor WENDY INDEX SCORE: n/a Ambulation - Ambulation Assistive Device Used: Rolling Walker Orthotic/Prosthetic Device: No Distance: 20ft Assistance needed with Ambulation: Min Assist, Mod Assist, 2 person assist Gait Deviations: Forward posture, Short stride, Deviates from path Ambulation Comments: pt began having increased issues keeping eyes open during amb, OT had to bring chair up to have pt sit down, unable to turn and amb back to the bed. Factors Affecting Ambulation: Decreased Balance, Weakness, Decreased Coordination, Decreased Safety, Cognitive Status, Limited Endurance Treatment time - Time with patient Total treatment time: 31 Patient Education - Education Patient Education: Home Exercise Program, Education of Plan of Care Teaching Recipient: Patient Teaching Methods: Discussion (discussion with patient regarding POC ) Assessment - Assessment Problem List:: Decreased level of function, Requires training/education, Decreased safety/Risk of falls, Weakness, Cognitive status limits abilities Rehab Potential: Good Further Therapy Indicated?: Yes Evaluation Complexity: HISTORY: Medium (age, htn, CAD, chest pain), EXAM OF BODY SYSTEMS: Medium (cognitive, decreased strength, balance, gait ability), CLINICAL PRESENTATION: Medium (evolving), CLINICAL DECISION MAKING: Medium Short Term Goals GOAL #1: Rolling in bed with bed rails with min x 1 Goal to be met by: 07/09/17 GOAL #2: pt transfer sup to/from sit to/from stand min-mod x 1 Goal to be met by: 07/09/17 GOAL #3: pt amb 75ft with rwx with min x 1 with no LOB Goal to be met by: 07/09/17 GOAL #4: pt tolerate sitting at side of bed with no LOB unsupported x 5 mins Goal to be met by: 07/09/17 Marine Chronometer Assembler Goals GOAL #1: pt transfer sup to/from sit to/from stand with CGA to min Goal to be met by: 07/12/17 GOAL #2: pt amb 100ft with rwx with CGA with no LOB Goal to be met by: 07/12/17 GOAL #3: Improved BLE strength 4 to 4+5 and independent with HEP Goal to be met by: 07/12/17 Plan Plan of Care: Therapeutic EX, Therapeutic Activity Other:: gait training Frequency of Treatment: 1-2 X day, as tolerated Duration of Treatment: 6 days Anticipated Discharge Destination: Home Has the Physician been added for Co-signature?: Yes
--- NOTE | 2017-07-06 13:42 | RS.OTINEVL ---
Subjective - Patient information Date of Evaluation: 07/06/17 Date of Arrival on Unit: 07/02/17 Admitted From:: Home Usual Living Arrangement: daughter Living Arrangement Comments: Pt lives at home with family. Pt reports that they take care of each other. Pt reports she does not use an assistive device at this time. Home Environment: House, Level/No stairs Medical History: Hypertension Medical History Comments:: CAD, depression, anemia, paget's disease, LATEX ALLERGY?: No Surgical History: Cholecystectomy, Hysterectomy Surgical History Comments:: kalpesh, JENSEN Medications: see chart Subjective Information/ Patient Comments:: "I guess I will try." - Level of function Prior to this admission, the patient could do the following:: Independent Selfcare, Independent Ambulation Abilities prior to this admission: Pt was living at home with her daughter. She reports she did not walk with a walker. Pt was independent with Self care management. Current Level of Function: Partially Dependent Pain Assessment - Pain Pain Score: 0 Interventions - Objective Patient Orientation: Person Current Interventions: IV's, Oxygen, Telemetry Observation: Pt is very weak. Pt was not able to tolerate much functional mobilty. Pt walked about 20 feet. Interventions - ROM Right Upper Extremity AROM: WFL's Left Upper Extremity AROM: WFL's - Strength Right Upper Extremity Strength: Mild Weakness Left Upper Extremity Strength: Mild Weakness - Sensation Right Upper Extremity Sensation: Intact/Normal Left Upper Extremity Sensation: Intact/Normal Balance - Sitting Balance Static Sitting Balance: Fair Dynamic Sitting Balance: Fair - Standing Balance Static Standing Balance: Poor Dynamic Standing Balance: Poor ADL Skills - Grooming Grooming: Min Assist - Bathing Bathing UE: Mod Assist Bathing LE: Mod Assist - Dressing Dressing UE: Mod Assist Dressing LE: Mod Assist - Toilet Management Toileting Management: Max Assist Functional Mobility - Bed Mobility Rolling R/L: Min Assist Scooting: Min Assist Supine to Sit: Mod Assist Sit to Supine: Mod Assist - Transfers Sit to Stand: Min Assist Stand to Sit: Min Assist Stand Pivot Transfers: Min Assist - Ambulation Weight Bearing Status: FWB Assistive Device Used: Rolling Walker Assistance needed with Ambulation: Mod Assist, 2 person assist - Safety Awareness Safety Awareness: Poor WENDY INDEX SCORE: . Additional Treatment Performed - Additional units charged ADL: 15 - Time with patient Total treatment time: 33 Activities Patient Interests:: Visiting/Socializing Patient Education Patient Education: Education of Plan of Care Teaching Recipient: Patient Teaching Methods: Discussion Assessment Problem List:: Decreased level of function, Requires training/education, Weakness Rehab Potential: Good Further Therapy Indicated?: Yes Evaluation Complexity: HISTORY: Medium, EXAM OF BODY SYSTEMS: Medium, CLINICAL DECISION MAKING: Medium Short Term Goals - Goals GOAL 1: Pt to increase BUE strength to 4/5. Goal to be met by: 07/13/17 GOAL 2: Pt to tolerate sink level ADLS at CGA. Goal to be met by: 07/13/17 GOAL 3: Pt to tolerate standing balance to Good- for 10 minutes. Goal to be met by: 07/13/17 Nursing Home Goals GOAL 1: Pt to increase BUE strength to 4+/5. Goal to be met by: 07/20/17 GOAL 2: Pt to tolerate sink level ADLS at Indep. Goal to be met by: 07/20/17 GOAL 3: Pt to tolerate standing balance to Good- for 15 minutes. Goal to be met by: 07/20/17 Plan Frequency of Treatment: 1-2 X day, as tolerated Duration of Treatment: 2 Weeks Anticipated Discharge Destination: Home Has the Physician been added for Co-signature?: Yes
[2017-07-06] MEDS: SODIUM CHLORIDE 1,000 ML IV SCH ×2 (14:31→14:32)
[2017-07-07] MEDS: CARAFATE PO SCH ×2 (05:34→17:00)
[2017-07-07] MEDS: PROTONIX PO SCH ×2 (05:35→18:17)
[2017-07-07] MEDS: ASPIRIN EC PO SCH (09:06)
[2017-07-07] MEDS: LEXAPRO PO SCH (09:06)
[2017-07-07] MEDS: COZAAR PO SCH ×2 (09:06→20:17)
[2017-07-07] MEDS: COREG PO SCH ×2 (09:06→18:17)
[2017-07-07] MEDS: TAGAMET PO SCH ×2 (09:06→20:17)
[2017-07-07] MEDS: LOVENOX SUBCUT SCH (09:07)
[2017-07-08] MEDS: TYLENOL PO PRN ×2 (01:41→19:16)
[2017-07-08] MEDS: CARAFATE PO SCH ×2 (05:37→16:33)
[2017-07-08] MEDS: PROTONIX PO SCH ×2 (05:37→16:33)
[2017-07-08] MEDS: ASPIRIN EC PO SCH (08:41)
[2017-07-08] MEDS: LOVENOX SUBCUT SCH (08:41)
[2017-07-08] MEDS: COREG PO SCH ×2 (08:42→16:33)
[2017-07-08] MEDS: TAGAMET PO SCH ×2 (08:42→20:10)
[2017-07-08] MEDS: COZAAR PO SCH ×2 (08:42→20:11)
[2017-07-08] MEDS: LEXAPRO PO SCH (08:43)
[2017-07-08] MEDS ORDERED: DECADRON 4 MG/ML SDV IM STA (19:11)
[2017-07-09] MEDS: ATIVAN PO PRN (00:32)
[2017-07-09] MEDS: TYLENOL PO PRN ×2 (00:32→13:49)
[2017-07-09] MEDS: PROTONIX PO SCH ×2 (05:37→16:53)
[2017-07-09] MEDS: CARAFATE PO SCH ×2 (05:37→16:53)
[2017-07-09] MEDS: TAGAMET PO SCH ×2 (08:02→20:36)
[2017-07-09] MEDS: COREG PO SCH ×2 (08:02→16:53)
[2017-07-09] MEDS: COZAAR PO SCH ×2 (08:02→20:36)
[2017-07-09] MEDS: LOVENOX SUBCUT SCH (08:02)
[2017-07-09] MEDS: LEXAPRO PO SCH (08:02)
[2017-07-09] MEDS: ASPIRIN EC PO SCH (08:02)
--- NOTE | 2017-07-09 10:42 | PCM.PROG ---
Attending Provider: ATTENDING PROVIDER: Dr. SAGE MCCORMACK This patient is seen with Cheri Zaragoza, Nurse Practitioner. DATE OF SERVICE: 07/09/17 SUBJECTIVE: This 82 year old WHITE/ F was hospitalized 07/02/17. The patient is awake, alert, lying in bed. The patient states that she walked yesterday with a walker and is feeling stronger. PT will see today. REVIEW OF SYSTEMS: CONSTITUTIONAL: Weakness. No night sweats. No malaise, lethargy. No fever or chills. HEENT: Eyes: No visual changes. No eye pain. No eye discharge. ENT: No runny nose. No epistaxis. No sinus pain. No odynophagia. No congestion. RESPIRATORY: No cough, no congestion. No hemoptysis. Shortness of breath. CARDIOVASCULAR: No angina symptoms. No CHF symptoms. No atypical chest pain for CAD. No palpitations. No orthopnea.. GASTROINTESTINAL: No abdominal pain. No nausea or vomiting. No diarrhea or constipation. No hematemesis. No hematochezia. GENITOURINARY: No urgency. No frequency. No dysuria. No hematuria. No obstructive symptoms. No discharge. No pain. No significant abnormal bleeding. MUSCULOSKELETAL: No musculoskeletal pain; no joint swelling. NEUROLOGICAL: Awake, alert, oriented to time, place and person. No headache. No neck pain. No syncope. No seizures. No dizziness. PSYCHIATRIC: Not anxious. No depression. No suicidal thoughts. No homicidal thoughts. SKIN: No rash. No lesions. No wounds. ENDOCRINE: No unexplained weight loss. No weight gain. HEMATOLOGIC/LYMPHATIC: No anemia. No purpura. No petechiae. No prolonged or excessive bleeding. No palpable lymph nodes. PHYSICAL EXAMINATION: GENERAL: The patient is awake, alert and oriented, lying in bed in no distress. VITAL SIGNS: Temperature 97.5 F, Pulse 69, Respiratory Rate 14, BP 129/71, Pulse Ox 91% HEENT: Head normocephalic, atraumatic. Eyes: Extraocular muscles are intact. Pupils are equal, round and reactive to light and accommodation. Ears: No lesions. Nose appeared normal. Throat: No exudate or erythema. NECK: Supple. No JVD, no carotid bruit. No lymphadenopathy or thyromegaly. LUNGS: Diminished breath sounds. Clear to auscultation. Percussion note normal. Chest symmetrical. HEART: S1, S2, no S3. No murmurs. No cyanosis or clubbing. No ascites. Pulses: Dorsalis pedis and posterior tibial pulses +1 to +2 both sides. ABDOMEN: Soft. Non-tender. Bowel sounds active. No CVA tenderness. No mass felt. EXTREMITIES: No edema. Full range of motion of all extremities, equal. NEUROLOGIC: No focal deficit. Cranial nerves II through XII are grossly intact. No headache, no double vision or headache. SKIN: Not dry. Intact. Turgor-normal. LYMPHATIC: No palpable lymph nodes/no lymphedema. MUSCULOSKELETAL: Normal joints with no swelling. Muscle tone is normal. LAB REVIEW: 07/09/17 04:35 07/09/17 04:35 07/09/17 04:35: Sodium 129 L, Potassium 4.0, Chloride 94 L, Carbon Dioxide 25, Anion Gap 14.0, BUN 10, Creatinine 0.73, Estimated GFR (MDRD) 77.00, BUN/ Creatinine Ratio 13.69, Glucose 179 H, Calcium 8.6, Total Bilirubin 0.7, AST 21 , ALT 70, Alkaline Phosphatase 133, Total Protein 6.2, Albumin 2.6 L, Globulin 3.6, Albumin/Globulin Ratio 0.72 07/09/17 04:35: WBC 7.92, RBC 3.67 L, Hgb 10.6 L, Hct 31.3 L, MCV 85.3, MCH 28.9 , MCHC 33.9, RDW Coeff of Gerald 13.5, Plt Count 206, Immature Gran % (Auto) 1.0, Neut % (Auto) 79.1, Lymph % (Auto) 12.6, Pope % (Auto) 6.9, Eos % (Auto) 0.3, Baso % (Auto) 0.1, Immature Gran # (Auto) 0.1, Neut # (Auto) 6.3, Lymph # (Auto ) 1.0, Pope # (Auto) 0.6, Eos # (Auto) 0.0, Baso # (Auto) 0.0 ASSESSMENT: 1. GENERALIZED WEAKNESS 2. CHEST PAIN, RESOLVED 3. PALPITATIONS, RESOLVED 4. HYPOTENSION, RESOLVED 5. ANXIETY 6. CORONARY ARTERY DISEASE 7. COPD - SMOKER PLAN: 1. Pt to evaluate 2. Possibility of discharge tomorrow Plan and coordination of the patient's care discussed in the presence of Tile Picker and nurse. CONDITION: Stable SCRIBED BY: NEIL LITTLE Auto Heater Mechanic scribed while in presence of service performed by Dr. Mccormack/Cheri Zaragoza APRN on 07/09/17 ([id number])
[2017-07-09] MEDS ORDERED: TORADOL IVP STA (15:55)
[2017-07-09] MEDS ORDERED: TORADOL IM STA (16:03)
[2017-07-10] MEDS: TYLENOL PO PRN ×2 (01:27→14:21)
[2017-07-10] MEDS: ATIVAN PO PRN (01:28)
[2017-07-10] MEDS: PROTONIX PO SCH ×2 (06:02→16:37)
[2017-07-10] MEDS: CARAFATE PO SCH ×2 (06:03→16:38)
[2017-07-10] MEDS ORDERED: DECADRON 4 MG/ML SDV IM STA ×2 (08:31→08:34)
[2017-07-10] MEDS: ASPIRIN EC PO SCH (08:56)
[2017-07-10] MEDS: COREG PO SCH ×2 (08:57→16:37)
[2017-07-10] MEDS: COZAAR PO SCH ×2 (08:57→20:54)
[2017-07-10] MEDS: LEXAPRO PO SCH (08:57)
[2017-07-10] MEDS: TAGAMET PO SCH ×2 (08:58→20:54)
[2017-07-10] MEDS: LOVENOX SUBCUT SCH (08:58)
[2017-07-10] MEDS ORDERED: TORADOL IVP SCH (09:00)
--- NOTE | 2017-07-10 10:43 | PN ---
DATE OF SERVICE: 07/09/17 SUBJECTIVE: The patient was seen with the Nurse Practitioner. The patient is up and about with the help, doing well. She doesn't have any back muscles spasm like what she had last night.No chest pain, no PND, no orthopnea and no epigastric pain. Liver functions are improving. Her cardiovascular status is stable. The patient will very likely be discharged home tomorrow. CONDITION: Stable. TIME SPENT: More than 30 minutes. Plan and coordination of the patient's care discussed in the presence of nurse. ALEXUS
--- NOTE | 2017-07-10 11:37 | PCM.PROG ---
Attending Provider: ATTENDING PROVIDER: Dr. SAGE MCCORMACK This patient is seen with Cheri Zaragoza, Nurse Practitioner. DATE OF SERVICE: 07/10/17 SUBJECTIVE: This 82 year old WHITE/ F was hospitalized 07/02/17. The patient is lying in bed, alert. She is complaining of extreme back pain, hurts with movement, radiates to groin, which has been on and off for several months; however, worse the past two days. Sodium low today although asymptomatic. REVIEW OF SYSTEMS: CONSTITUTIONAL: Weakness. No night sweats. No malaise, lethargy. No fever or chills. HEENT: Eyes: No visual changes. No eye pain. No eye discharge. ENT: No runny nose. No epistaxis. No sinus pain. No odynophagia. No congestion. RESPIRATORY: No cough, no congestion. No hemoptysis. No shortness of breath. CARDIOVASCULAR: No angina symptoms. No CHF symptoms. No atypical chest pain for CAD. No palpitations. No orthopnea.. GASTROINTESTINAL: No abdominal pain. No nausea or vomiting. No diarrhea or constipation. No hematemesis. No hematochezia. GENITOURINARY: No urgency. No frequency. No dysuria. No hematuria. No obstructive symptoms. No discharge. No pain. No significant abnormal bleeding. MUSCULOSKELETAL: Back pain. NEUROLOGICAL: Awake, alert, oriented to time, place and person. No headache. No neck pain. No syncope. No seizures. No dizziness. PSYCHIATRIC: Not anxious. No depression. No suicidal thoughts. No homicidal thoughts. SKIN: No rash. No lesions. No wounds. ENDOCRINE: No unexplained weight loss. No weight gain. HEMATOLOGIC/LYMPHATIC: No anemia. No purpura. No petechiae. No prolonged or excessive bleeding. No palpable lymph nodes. PHYSICAL EXAMINATION: GENERAL: The patient is awake, alert and oriented, lying in bed in no distress. VITAL SIGNS: Temperature 97.5 F, Pulse 66, Respiratory Rate 18, BP 168/69, Pulse Ox 94% HEENT: Head normocephalic, atraumatic. Eyes: Extraocular muscles are intact. Pupils are equal, round and reactive to light and accommodation. Ears: No lesions. Nose appeared normal. Throat: No exudate or erythema. NECK: Supple. No JVD, no carotid bruit. No lymphadenopathy or thyromegaly. LUNGS: Diminished breath sounds. Clear to auscultation. Percussion note normal. Chest symmetrical. HEART: S1, S2, no S3. No murmurs. No cyanosis or clubbing. No ascites. Pulses: Dorsalis pedis and posterior tibial pulses +1 to +2 both sides. ABDOMEN: Soft. Non-tender. Bowel sounds active. No mass felt. EXTREMITIES: No leg edema. SI joint tenderness on left. Full range of motion of all extremities, equal. NEUROLOGIC: No focal deficit. Cranial nerves II through XII are grossly intact. No headache, no double vision or headache. SKIN: Not dry. Intact. Turgor-normal. LYMPHATIC: No palpable lymph nodes/no lymphedema. MUSCULOSKELETAL: Normal joints with no swelling. Muscle tone is normal. LAB REVIEW: 07/10/17 04:40 07/10/17 04:40 07/10/17 04:40: Sodium 127 L, Potassium 3.6, Chloride 94 L, Carbon Dioxide 24, Anion Gap 12.6, BUN 19 H, Creatinine 0.96, Estimated GFR (MDRD) 56.00, BUN/ Creatinine Ratio 19.79, Glucose 108, Calcium 8.2, Total Bilirubin 0.5, AST 15, ALT 48, Alkaline Phosphatase 108 D, Total Protein 5.7 L, Albumin 2.5 L, Globulin 3.2, Albumin/Globulin Ratio 0.78 07/10/17 04:40: WBC 7.40, RBC 3.39 L, Hgb 9.8 L, Hct 28.9 L, MCV 85.3, MCH 28.9 , MCHC 33.9, RDW Coeff of Gerald 13.5, Plt Count 208, Immature Gran % (Auto) 1.2, Neut % (Auto) 55.9, Lymph % (Auto) 28.2, [place] % (Auto) 13.9 H, Eos % (Auto) 0.5 , Baso % (Auto) 0.3, Immature Gran # (Auto) 0.1, Neut # (Auto) 4.1, Lymph # ( Auto) 2.1, [place] # (Auto) 1.0, Eos # (Auto) 0.0, Baso # (Auto) 0.0 ASSESSMENT: 1. LOW BACK PAIN 2. HYPONATREMIA 3. GENERALIZED WEAKNESS 4. CHEST PAIN, RESOLVED 5. PALPITATIONS, RESOLVED 6. HYPOTENSION, RESOLVED 7. ANXIETY 8. CORONARY ARTERY DISEASE 9. COPD - SMOKER PLAN: 1. Xray T-spine and L-spine, left hip 2. 1 cc Decadron IM 3. Toradol 30 q.12 p.r.n. 4. Advised to increase salt intake Plan and coordination of the patient's care discussed in the presence of Concrete Pipe Machine Operator and nurse. CONDITION: Stable SCRIBED BY: NEIL LITTLE Continuous Dryout Operator scribed while in presence of service performed by Dr. Mccormack/Cheri Zraagoza APRN on 07/10/17 ([id number])
--- NOTE | 2017-07-10 12:49 | PN ---
DATE OF SERVICE: 07/06/17 SUBJECTIVE: 82-year-old white female. She is sleepy. She has been on Librium 20 mg t.i.d. Denies any abdominal pain or chest pain. She says she is feeling a lot better. Her liver functions are improving remarkably. Cardiovascular status is stable with sinus rhythm, rate of [address]-T wave changes. Doesn't have any symptoms of coronary insufficiency. PHYSICAL EXAMINATION: GENERAL: The patient is oriented to time, place and person. She is sleepy. VITAL SIGNS: Temperature 98, pulse 73, respiratory rate 18, BP 160/70, pulse ox 92%. HEENT: Head normocephalic, atraumatic. Eyes: Extraocular muscles are intact. Pupils are equal, round and reactive to light and accommodation. Ears: No lesions. Nose appeared normal. Throat: No exudate or erythema. NECK: Supple. No JVD, no carotid bruit. No lymphadenopathy or thyromegaly. LUNGS: Decreased breath sounds but clear to auscultation. Percussion note normal. Chest symmetrical. HEART: S1, S2, no S3. No murmurs. No cyanosis or clubbing. No ascites. Pulses: Dorsalis pedis and posterior tibial pulses +1 to +2 both sides. ABDOMEN: Soft. Nontender. Bowel sounds active. No CVA tenderness. No mass felt. EXTREMITIES: No edema. Full range of motion of all extremities, equal. NEUROLOGIC: No focal deficit. Cranial nerves II through XII are grossly intact. No headache, no double vision or headache. SKIN: Not dry. Intact. Turgor - normal. LYMPHATIC: No palpable lymph nodes/no lymphedema. MUSCULOSKELETAL: Normal joints with no swelling. Muscle tone is normal. LABS: Hemoglobin 9.9, hematocrit 31, WBC 6,700, normal differential. Creatinine 0.8, BUN 16, potassium 4.5. ASSESSMENT: CHEST PAIN SUBSIDED (TWO DAYS NO CHEST PAIN). THE PATIENT HAD MORE LIKE BREAST PAIN IF HER BREASTS WERE GOING TO BURST, OPEN. SHE THEN HAD EPIGASTRIC DISCOMFORT WHICH HAS SUBSIDED. LIVER PROFILE IS BECOMING NORMAL. Hemoglobin and hematocrit are stable. Kidney functions have improved remarkably with renal azotemia resolved. Kidney function 0.8, creatinine with BUN 16. Condition is improving, stable. TIME SPENT: More than 30 minutes. Plan and coordination of the patient's care discussed in the presence of nurse. ALEXUS
--- NOTE | 2017-07-10 12:53 | PN ---
DATE OF SERVICE: 07/07/17 SUBJECTIVE: The patient is up and about with help. Her appetite is improved. Her liver functions have improved. She does not have any chest pain. No abdominal pain. PHYSICAL EXAMINATION: HEENT: Head normocephalic, atraumatic. Eyes: Extraocular muscles are intact. Pupils are equal, round and reactive to light and accommodation. Ears: No lesions. Nose appeared normal. Throat: No exudate or erythema. NECK: Supple. No JVD, no carotid bruit. No lymphadenopathy or thyromegaly. LUNGS: Clear to auscultation. Percussion note normal. Chest symmetrical. HEART: S1, S2, no S3. No murmurs. No cyanosis or clubbing. No ascites. Pulses: Dorsalis pedis and posterior tibial pulses +1 to +2 both sides. ABDOMEN: Soft. Nontender. Bowel sounds active. No CVA tenderness. No mass felt. EXTREMITIES: No edema. Full range of motion of all extremities, equal. NEUROLOGIC: No focal deficit. Cranial nerves II through XII are grossly intact. No headache, no double vision or headache. SKIN: Not dry. Intact. Turgor - normal. LYMPHATIC: No palpable lymph nodes/no lymphedema. MUSCULOSKELETAL: Normal joints with no swelling. Muscle tone is normal. PLAN: Her condition is stable. The patient should be able to undergo Dobutamine stress echo as an outpatient. Will schedule that and let her know. Cardiovascular status is stable. The patient will be discharged home in stable condition. TIME SPENT: More than 30 minutes. Plan and coordination of the patient's care discussed in the presence of nurse. ALEXUS
--- NOTE | 2017-07-10 13:01 | PN ---
CODING FOR BILLIN07/02/17 ADMISSION DAY/LEVEL 5 07/03/17 INTERMEDIATE 07/04/17 EXTENSIVE 07/05/17 EXTENSIVE 07/06/17 INTERMEDIATE 07/07/17 DISCHARGE MTDD
--- NOTE | 2017-07-10 13:29 | PN ---
DATE OF SERVICE: 07/08/17 SUBJECTIVE: 82-year-old white female hospitalized with chest pain. The patient's chest pain practically was noncardiac. She probably had epigastric pain, likely reflux. In any case, the patient during the stay in the hospital had normal cardiac markers. Her EKG was abnormal but unchanged. Echo showed normal LV contractility. She declined any Dobutamine chemical stress test. PHYSICAL EXAMINATION: GENERAL: The patient is oriented to time, place and person. V/S: BP 170/70 today. HEENT: Head normocephalic, atraumatic. Eyes: Extraocular muscles are intact. Pupils are equal, round and reactive to light and accommodation. Ears: No lesions. Nose appeared normal. Throat: No exudate or erythema. NECK: Supple. No JVD, no carotid bruit. No lymphadenopathy or thyromegaly. LUNGS: Decreased breath sounds but clear to auscultation. Percussion note normal. Chest symmetrical. HEART: S1, S2, no S3. No murmurs. No cyanosis or clubbing. No ascites. Pulses: Dorsalis pedis and posterior tibial pulses +1 to +2 both sides. ABDOMEN: Soft. Nontender. Bowel sounds active. No CVA tenderness. No mass felt. EXTREMITIES: No edema. Full range of motion of all extremities, equal. NEUROLOGIC: No focal deficit. Cranial nerves II through XII are grossly intact. No headache, no double vision or headache. SKIN: Not dry. Intact. Turgor - normal. LYMPHATIC: No palpable lymph nodes/no lymphedema. MUSCULOSKELETAL: Normal joints with no swelling. Muscle tone is normal. The daughter is in the room. She wants no intubation or respirator but she wants CPR to be done. Discussed with Mansi, the RN that heard; full code status needs to be changed to DNI, not intubated. The patient is up and about with help. She is gaining strength. Appetite is improving. LABS: Hemoglobin 9.9, hematocrit 29, WBC 7,000, normal differential. Creatinine 0.7, BUN 8. The patient's condition is stable. The patient should be encouraged to move around again. I asked the daughter to have Dobutamine stress echo done but the daughter and the patient says that even if it shows blocked arteries, she is not going to have anything done anyway. Her cardiovascular status is stable with no angina at the present time. They want it to be left alone. The patient wants to go home. Very likely will discharge her tomorrow. CONDITION: Stable TIME SPENT: More than 30 minutes. Plan and coordination of the patient's care discussed in the presence of nurse. ALEXUS
[2017-07-10] MEDS: TORADOL IM PRN (14:21)
--- NOTE | 2017-07-10 14:28 | PN ---
DATE OF SERVICE: 07/07/17 SUBJECTIVE: The patient had been moved to a regular room after experiencing hypotension on admission. She is now experiencing hypertension. Blood pressure has been 160/ 80. We had initially decreased her medication. I will increase her Cozaar to 50 mg b.i.d. today. We had discussed possible discharge. Both she and her daughter feel that she cannot go home at this time. She is extremely weak. She is unable to get up on her own. She has been incontinent here in the hospital. After we get her blood pressure under control, we will look at physical therapy evaluation. REVIEW OF SYSTEMS: CONSTITUTIONAL: Worsening weakness. No night sweats. No malaise, lethargy. No fever or chills. HEENT: Eyes: No visual changes. No eye pain. No eye discharge. ENT: No runny nose. No epistaxis. No sinus pain. No sore throat. No odynophagia. No congestion. RESPIRATORY: No cough, no congestion. No hemoptysis. No shortness of breath. CARDIOVASCULAR: No angina symptoms. No CHF symptoms. No atypical chest pain for CAD. No palpitations. No orthopnea. GASTROINTESTINAL: No abdominal pain. No nausea or vomiting. No diarrhea or constipation. No hematemesis. No hematochezia. GENITOURINARY: Incontinence. MUSCULOSKELETAL: No musculoskeletal pain; no joint swelling. NEUROLOGICAL: No headache. No neck pain. No syncope. No seizures. No dizziness. PSYCHIATRIC: Not anxious. No depression. No suicidal thoughts. No homicidal thoughts. SKIN: No rash. No lesions. No wounds. ENDOCRINE: No unexplained weight loss. No weight gain. HEMATOLOGIC/LYMPHATIC: No anemia. No purpura. No petechiae. No prolonged or excessive bleeding. No palpable lymph nodes. PHYSICAL EXAMINATION: VITAL SIGNS: Temperature 98.3, heart rate 74, respirations 14, BP 160/75, pulse ox 100% on 2L. HEENT: Head normocephalic, atraumatic. Eyes: Extraocular muscles are intact. Pupils are equal, round and reactive to light and accommodation. Ears: No lesions. Nose appeared normal. Throat: No exudate or erythema. NECK: Supple. No JVD, no carotid bruit. No lymphadenopathy or thyromegaly. LUNGS: Diminished breath sounds. Clear to auscultation. Percussion note normal. Chest symmetrical. HEART: S1, S2, no S3. No murmurs. No cyanosis or clubbing. No ascites. Pulses: Dorsalis pedis and posterior tibial pulses +1 to +2 both sides. ABDOMEN: Soft. Nontender. Bowel sounds active. No CVA tenderness. No mass felt. EXTREMITIES: No edema. Full range of motion of all extremities, equal. NEUROLOGIC: Alert and oriented to person and place, not time. Severe leg weakness. No focal deficit. Cranial nerves II through XII are grossly intact. No headache, no double vision or headache. SKIN: Not dry. Intact. Turgor - normal. LYMPHATIC: No palpable lymph nodes/no lymphedema. MUSCULOSKELETAL: Normal joints with no swelling. Muscle tone is normal. LABS: Hemoglobin 10.3, hematocrit 31.0, white count 7.8. Sodium 135, potassium 4.1, BUN 10, creatinine 0.76. ASSESSMENT: 1. HYPERTENSION 2. WORSENING GENERALIZED WEAKNESS 3. CHEST PAIN HAS RESOLVED PLAN: 1. Increase Cozaar to b.i.d. 2. Will put in for PT and OT evaluation and treatment on Sunday 3. Encourage her to increase her fluids 4. May walk with assistance today 5. Fall precautions TIME SPENT: More than 30 minutes. Plan and coordination of the patient's care discussed in the presence of nurse. ALEXUS
--- NOTE | 2017-07-10 14:54 | DI ---
Exam: Left hip two-view. HISTORY: Left hip pain. Findings: Two images of the left hip demonstrate moderate degenerative disease with no acute fractur e or dislocation. There is moderate degenerative disease at the symphysis pubis. No subchondral sujit ency or collapse is seen. The bowel gas pattern is nondilated. No focal soft tissue swelling. Impressions: Moderate degenerative disease of the left hip with no acute fracture or dislocation.
--- NOTE | 2017-07-10 14:55 | DI ---
EXAM: Three views of the lumbar spine. History: Lower back pain. Comparison: Thoracic spine radiograph 07/10/2017 Findings: Surgical clips seen within the abdomen. Osteopenia. Atherosclerotic vascular calcificati ons. No acute fracture or subluxation of the lumbar spine. Mild multilevel degenerative disc space narrowing. Mild to moderate facet hypertrophy at L5-S1. Impression: No acute osseous abnormality of the lumbar spine.
--- NOTE | 2017-07-10 14:58 | DI ---
EXAM: Three views of the thoracic spine. History: Thoracic back pain. Comparison: Chest CT 07/04/2017, lumbar spine radiograph 07/10/2017 Findings: Surgical clips within the upper abdomen. Atherosclerotic vascular calcifications. Surgic al clips seen within the neck. Osteopenia. No acute fracture or subluxation of the thoracic spine. Mild to moderate multilevel degenerative disc space narrowing. Impression: No acute osseous abnormality.
[2017-07-11] MEDS ORDERED: TORADOL ONE (03:03)
[2017-07-11] MEDS: TORADOL IM PRN (03:05)
[2017-07-11] MEDS: CARAFATE PO SCH (05:30)
[2017-07-11] MEDS: PROTONIX PO SCH (05:30)
[2017-07-11] MEDS: ASPIRIN EC PO SCH (08:34)
[2017-07-11] MEDS: COREG PO SCH (08:34)
[2017-07-11] MEDS: TAGAMET PO SCH (08:35)
[2017-07-11] MEDS: LEXAPRO PO SCH (08:35)
[2017-07-11] MEDS: COZAAR PO SCH (08:35)
[2017-07-11] MEDS: LOVENOX SUBCUT SCH (08:36)
--- NOTE | 2017-07-11 09:00 | PCM.PROG ---
Attending Provider: ATTENDING PROVIDER: Dr. SAGE MCCORMACK DATE OF SERVICE: 07/11/17 SUBJECTIVE: This 82 year old WHITE/ F was hospitalized 07/02/17 with chest heaviness and chest pain. Cardiac workup was all negative, normal LV contractility with LVH, mildly enlarged LA cavity. Cardiac markers were normal. Chest pain, atypical, which later on localized to epigastric area. The patient's only problem that was obvious was abnormal liver profile for which explanation was not found. The patient is status post cholecystectomy, no pnacreatitis but patient's liver profile normalized. She had some back problems and she has DJD spine. The patient has severe PAD, CAD, carotid occlusive disease. The patient was agreeable for chemical stress as outpatient. The patient is DNI. REVIEW OF SYSTEMS: CONSTITUTIONAL: No night sweats. No fatigue, malaise, lethargy. No fever or chills. HEENT: Eyes: No visual changes. No eye pain. No eye discharge. ENT: No runny nose. No epistaxis. No sinus pain. No odynophagia. No congestion. RESPIRATORY: No cough, no congestion. No hemoptysis. No shortness of breath. CARDIOVASCULAR: No angina symptoms. No CHF symptoms. No atypical chest pain for CAD. No palpitations. No orthopnea.. GASTROINTESTINAL: No abdominal pain. No nausea or vomiting. No diarrhea or constipation. No hematemesis. No hematochezia. GENITOURINARY: No urgency. No frequency. No dysuria. No hematuria. No obstructive symptoms. No discharge. No pain. No significant abnormal bleeding. MUSCULOSKELETAL: No musculoskeletal pain; no joint swelling. NEUROLOGICAL: Awake, alert, oriented to time, place and person. No headache. No neck pain. No syncope. No seizures. No dizziness. PSYCHIATRIC: Not anxious. No depression. No suicidal thoughts. No homicidal thoughts. SKIN: No rash. No lesions. No wounds. ENDOCRINE: No unexplained weight loss. No weight gain. HEMATOLOGIC/LYMPHATIC: No anemia. No purpura. No petechiae. No prolonged or excessive bleeding. No palpable lymph nodes. PHYSICAL EXAMINATION: GENERAL: The patient is awake, alert and oriented, lying in bed in no distress. VITAL SIGNS: Temperature 97.7 F, Pulse 60, Respiratory Rate 16, BP 161/77, Pulse Ox 97% HEENT: Head normocephalic, atraumatic. Eyes: Extraocular muscles are intact. Pupils are equal, round and reactive to light and accommodation. Ears: No lesions. Nose appeared normal. Throat: No exudate or erythema. NECK: Supple. No JVD, no carotid bruit. No lymphadenopathy or thyromegaly. LUNGS: Clear to auscultation. Percussion note normal. Chest symmetrical. HEART: S1, S2, no S3. No murmurs. No cyanosis or clubbing. No ascites. Pulses: Dorsalis pedis and posterior tibial pulses +1 to +2 both sides. ABDOMEN: Soft. Non-tender. Bowel sounds active. No CVA tenderness. No mass felt. EXTREMITIES: No edema. Full range of motion of all extremities, equal. NEUROLOGIC: No focal deficit. Cranial nerves II through XII are grossly intact. No headache, no double vision or headache. SKIN: Warm and dry. Intact. Turgor-normal. LYMPHATIC: No palpable lymph nodes/no lymphedema. MUSCULOSKELETAL: Normal joints with no swelling. Muscle tone is normal. LAB REVIEW: 07/11/17 04:30 07/11/17 04:30 07/11/17 04:30: Sodium 127 L, Potassium 4.3, Chloride 95 L, Carbon Dioxide 24, Anion Gap 12.3, BUN 20 H, Creatinine 0.96, Estimated GFR (MDRD) 56.00, BUN/ Creatinine Ratio 20.83, Glucose 118 H, Calcium 8.3, Total Bilirubin 0.4, AST 16 , ALT 38, Alkaline Phosphatase 100, Total Protein 5.9, Albumin 2.5 L, Globulin 3.4, Albumin/Globulin Ratio 0.74 07/11/17 04:30: WBC 6.33, RBC 3.57 L, Hgb 10.3 L, Hct 30.2 L, MCV 84.6, MCH 28.9 , MCHC 34.1, RDW Coeff of Gerald 13.2, Plt Count 264, Immature Gran % (Auto) 1.7, Neut % (Auto) 65.7, Lymph % (Auto) 21.8, [place] % (Auto) 10.4 H, Eos % (Auto) 0.2 , Baso % (Auto) 0.2, Immature Gran # (Auto) 0.1, Neut # (Auto) 4.2, Lymph # ( Auto) 1.4, [place] # (Auto) 0.7, Eos # (Auto) 0.0, Baso # (Auto) 0.0 ASSESSMENT: 1. Cardiovascular status stable 2. Peripheral arterial disease 3. CAD 4. Abnormal liver profile normal now 5. Back pain PLAN: 1. Discharge the patient home 2. Amlodipine 5 mg at night 3. Losartan 50 mg b.i.d. 4. Coreg 12.5 mg b.i.d. 5. Nitroglycerin sublingual 6. Aspirin 81 mg p.o. daily 7. Return to see Dr. Mccormack in 10 days 8. Dobutamine Sestamibi as outpatient 9. Tramadol 50 mg b.i.d. p.rn. mixed with Tylenol Plan and coordination of the patient's care discussed in the presence of Data Sme and nurse. CONDITION: Stable SCRIBED BY: NEIL LITTLE Nursery Supervisor scribed while in presence of service performed by Dr. SAGE MCCORMACK on 07/11/17 ([id number])
[2017-07-11 11:37] VITALS: BP 131/69; TEMP 98.1
--- NOTE | 2017-07-11 11:38 | CM.DICTOOL ---
ADMISSION: 07/02/17 13:26 DISCHARGE: JULY 11, 2017 DATE OF SERVICE: 07/11/17 FINAL DIAGNOSIS CHEST PAIN, RESOLVED PALPITATIONS, RESOLVED HYPOTENSION, RESOLVED GERD ANEMIA B 12 DEFICIENCY ELEVATED LFT'S, RESOLVED BACK PAIN HYPONATREMIA HYPERTENSION COPD HISTORY OF SMOKING CVA, 1998 CAD WITH STENT APPLICATION DYSLIPIDEMIA PAGET'S DISEASE GENERAL ANXIETY DISORDER DEPRESSION CHOLECYSTECTOMY HYSTERECTOMY COLON RESECTION ESOPHAGEAL REPAIR ECHOCARDIOGRAM 06/2017: LVH WITH ENLARGED LEFT ATRIAL CAVITY. LVEF 74% LAST VITALS Temp Pulse Resp BP Pulse Ox 97.7 F 60 16 161/77 H 97 07/11/17 05:14 07/11/17 05:14 07/11/17 05:14 07/11/17 05:14 07/11/17 05:14 TAKE THESE MEDICATIONS Acetaminophen (Tylenol) 650 mg PO Q4H PRN PRN Reason: Headache Last Admin: 07/10/17 14:21 Dose: 650 mg Aspirin (Aspirin Ec) 81 mg PO DAILYWM [facility] Last Admin: 07/11/17 08:34 Dose: 81 mg Carvedilol (Coreg) 12.5 mg PO BIDWM [facility] Last Admin: 07/11/17 08:34 Dose: 12.5 mg Cimetidine (Tagamet) 400 mg PO BID [facility] Last Admin: 07/11/17 08:35 Dose: 400 mg Escitalopram Oxalate (Lexapro) 20 mg PO DAILY [facility] Last Admin: 07/11/17 08:35 Dose: 20 mg Amlodipine 5 mg PO BEDTIME DAILY Last Admin: Lorazepam (Ativan) 0.5 mg PO BID PRN PRN Reason: Anxiety Last Admin: 07/10/17 01:28 Dose: 0.5 mg Losartan Potassium (Cozaar) 50 mg PO BID [facility] Last Admin: 07/11/17 08:35 Dose: 50 mg Pantoprazole Sodium (Protonix) 40 mg PO DAILY [facility] Last Admin: 07/11/17 05:30 Dose: 40 mg Chlordiazepoxide HCL (Librium) 10 mg PO BID Last Admin: Meclizine HCL (Antivert) 12.5 mg PO BID PRN Last Admin: Alendronate Sodium (Fosamax) 70 mg PO WEEKLY Last Admin: Tramadol 50 mg BID PRN Pain MEDICATION CHANGES STOP LISINOPRIL STOP DILTIAZEM STOP SIMVASTATIN ALLERGIES clarithromycin [From Biaxin] Adverse Reaction (Verified 03/24/17 13:32) Penicillins Adverse Reaction (Verified 03/24/17 13:32) Sulfa (Sulfonamide Antibiotics) Adverse Reaction (Verified 03/24/17 13:32) NEW PRESCRIPTIONS: NORVASC 5 MG DAILY TRAMADOL 50 MG BID PRN PROTONIX 40 MG DAILY LOSARTAN 50 MG BID CARVEDILOL 12.5 MG BID SMOKING: ADVISED TO STOP SMOKING DISEASE SPECIFIC EDUCATION: MEDICATION CHANGES CHEMICAL STRESS TEST ACTIVITY APPOINTMENT LAB REVIEW: 07/11/17 04:30 07/11/17 04:30 07/11/17 04:30: Sodium 127 L, Potassium 4.3, Chloride 95 L, Carbon Dioxide 24, Anion Gap 12.3, BUN 20 H, Creatinine 0.96, Estimated GFR (MDRD) 56.00, BUN/ Creatinine Ratio 20.83, Glucose 118 H, Calcium 8.3, Total Bilirubin 0.4, AST 16 , ALT 38, Alkaline Phosphatase 100, Total Protein 5.9, Albumin 2.5 L, Globulin 3.4, Albumin/Globulin Ratio 0.74 07/11/17 04:30: WBC 6.33, RBC 3.57 L, Hgb 10.3 L, Hct 30.2 L, MCV 84.6, MCH 28.9 , MCHC 34.1, RDW Coeff of Gerald 13.2, Plt Count 264, Immature Gran % (Auto) 1.7, Neut % (Auto) 65.7, Lymph % (Auto) 21.8, Brooke % (Auto) 10.4 H, Eos % (Auto) 0.2 , Baso % (Auto) 0.2, Immature Gran # (Auto) 0.1, Neut # (Auto) 4.2, Lymph # ( Auto) 1.4, Brooke # (Auto) 0.7, Eos # (Auto) 0.0, Baso # (Auto) 0.0 PLAN: DISCHARGE HOME DIET: REGULAR TOLERATED ACTIVITY: RESUME TOLERATED AN APPOINTMENT IS SCHEDULED WITH DR. MCCORMACK ON July AT 11:15 AM YOU ARE SCHEDULED FOR AN OUTPATIENT DOBUTAMINE STRESS ECHO SESTAMIBI ON July AT 6:30 AM MS LITTLE HAS REQUESTED A DNI (DO NOT INTUBATE) STATUS MS. LITTLE IS ALERT AND ORIENTED X 3. SHE IS INDEPENDENT WITH FEEDING AND BED MOBILITY. MEAL INTAKES ARE FAIR AT 50-75%. SHE IS INCONTINENT OF URINE AND REPORTS LOSS OF BLADDER CONTROL FOLLOWING A STROKE. SHE WEARS DEPENDS UNDERGARMENTS. MS. LITTLE REQUIRES CGA ASSISTANCE WITH TRANSFERS FROM THE BED TO THE CHAIR AND CHAIR TO THE BED. SHE AMBULATES WITH A ROLLING WALKER AND CGA. SKIN IS INTACT AND FREE OF DECUBITUS ULCERS, RASHES OR IRRITATION. AREAS OF ECCHYMOSIS ARE NOTED TO THE UPPER EXTREMITIES. SAGE MCCORMACK MD
--- NOTE | 2017-07-12 15:24 | PN ---
DATE OF SERVICE: 07/10/17 SUBJECTIVE: 82 year old white female hospitalized with chest heaviness, chest pain. The patient's condition has steadily improved. She is having some back pain, back muscle spasms. We will give 1cc Decadron, Toradol IV will be given. Condition is stable. LABS: Hgb 9.8, hct 28, WBC 7,400 normal differential, creatinine 0.9, BUN 19, potassium 3.6. CONDITION: Improving The patient was seen and examined with the Nurse Practitioner. TIME SPENT: More than 30 minutes. Plan and coordination of the patient's care discussed in the presence of nurse. ALEXUS
--- NOTE | 2017-07-18 11:22 | DS ---
DATE OF SERVICE: 07/11/17 FINAL DIAGNOSIS: 1. Chest pain, resolved 2. Palpitations, resolved 3. Hypotension, resolve d 4. GERD 5. 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 Elevated LFT's, resolved 8. Back pain 9. 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 LAST VITALS: Temperature 97.7, pulse 60, respiratory rate 16, blood pressure 161/77 and pulse ox 97%. DISCHARGE INSTRUCTIONS: Discharge home. An appointment is scheduled with Dr. Biswas on July 23 at 11: 15am. Scheduled for an outpatient Dobutamine Stress Echo Sestamibi on July 25 at 6:30am. Ms. Villavicencio has requested a DNI ( DO NOT INTUBATE) Status MEDICATIONS AT DISCHARGE: Tylenol 650mg PO Q 4 hours PRN Aspirin 81mg PO daily Coreg 12.5mg PO twice a day Tagamet 400mg PO twice a day Lexapro 20mg Po daily Amlodipine 5mg Po bedtime Ativan 0.5mg PO twice a day PRN Cozaar 50mg PO twice a day Protonix 40mg PO daily Librium 10mg PO twice a day Antivert 12.5mg PO twice a day PRN Fosamax 70mg PO weekly Tramadol 50mg twice a day PRN MEDICATION CHANGES: Stop Lisinopril Stop Diltiazem Step Simvastatin ALLERGIES: Clarithromycin Penicillins Sulfa NEW PRESCRIPTIONS: Norvasc 5mg daily Tramadol 50mg twice a day PRN Protonix 40mg daily Losartan 50mg twice a day Carvedilol 12.5mg twice a day DIET INSTRUCTIONS: Regular as tolerated ACTIVITY: Resume as tolerated SMOKING: Advised to stop smoking DISEASE SPECIFIC EDUCATION: Medication changes Chemical stress test Activity Appointment HOSPITAL COURSE: 82 year old female originally admitted with chest heaviness. The patient's chest heaviness then changed to epigastric pain. The patient's cardiac markers and EKG's were unchanged and not show any evidence of acute marker event. The patient's echo showed normal LV contractility. The patient will undergo Dobutamine stress sestamibi as an outpatient. The patient has been DNI. The patient has several end stage medical problems like severe peripheral arterial disease, coronary artery disease for long duration. The patient also had abdominal liver profile which was normal at the time of discharge. Cause for abnormal liver profile is still unknown. At the time of discharge the patient was stable. She was up and about, her back pain was also better. She has severe DJD spine. The patient is going to be on Losartan 50mg twice a day and Coreg 12.5 twice a day, Nitroglycerin PRN sublingual for chest pain, Amlodipine 5mg at night and Aspirin 81mg daily and Tramadol. CONDITION: Stable. TIME SPENT: More than 60 minutes. MTDD
--- NOTE | 2017-07-18 11:25 | PN ---
07/02/17: Level 5 18: Intermediate 18: Intermediate 18: Intermediate 07/06/17: Intermediate 07/07/17: Intermediate 07/08/17: Intermediate 07/09/17: Intermediate 07/10/17: Intermediate 07/11/17: D as in discharge Several of the coding that was done on Lucy was extensive depending upon the note and the time spent. ALEXUS
== END 2017-07-11 13:25 | disposition home or self-care (01) | DRG 313 ==
LOC: SCU 13:26 → MEDSURG A 07-06 09:25
PROVIDERS: ADMIT Internal Medicine; ATTEND Internal Medicine
DX: R07.9 Chest pain, unspecified (principal); E87.1 Hypo-osmolality and hyponatremia; R00.2 Palpitations; I95.2 Hypotension due to drugs; T46.3X5A Adverse effect of coronary vasodilators, initial encounter; T40.2X5A Adverse effect of other opioids, initial encounter; Y92.230 Patient room in hospital as the place of occurrence of the external cause; R11.0 Nausea; R10.13 Epigastric pain; I51.7 Cardiomegaly; I10 Essential (primary) hypertension; I25.10 Atherosclerotic heart disease of native coronary artery without angina pectoris; R06.02 Shortness of breath; J44.9 Chronic obstructive pulmonary disease, unspecified; D64.9 Anemia, unspecified; K21.9 Gastro-esophageal reflux disease without esophagitis; E53.8 Deficiency of other specified B group vitamins; R74.8 Abnormal levels of other serum enzymes; M54.9 Dorsalgia, unspecified; I73.9 Peripheral vascular disease, unspecified; E87.5 Hyperkalemia; M88.9 Osteitis deformans of unspecified bone; F41.1 Generalized anxiety disorder; R32 Unspecified urinary incontinence; R53.1 Weakness; Z79.01 Long term (current) use of anticoagulants; Z86.73 Personal history of transient ischemic attack (TIA), and cerebral infarction without residual deficits; Z72.0 Tobacco use; Z95.5 Presence of coronary angioplasty implant and graft; Z90.49 Acquired absence of other specified parts of digestive tract; Z79.899 Other long term (current) drug therapy
CPT/HCPCS: 36415; 80053; 81001; 82150; 82550; 82803; 83690; 84484; 85025; 93005; 93010

== ENCOUNTER 2017-07-25 06:02 | Outpatient (CLI) ==
[2017-07-25] MEDS ORDERED: DOBUTAMINE 250 ML IV ONE (07:07)
[2017-07-25] MEDS ORDERED: ATROPINE SULFATE PFS ONE (07:07)
--- NOTE | 2017-07-25 10:35 | NM ---
EXAM: Myocardial perfusion imaging HISTORY: Chest pain and shortness of breath COMPARISON: None. TECHNIQUE: Patient was injected 3.5 mCi of thallium 201 chloride intravenously while at rest. SPECT imaging of the heart was performed. Patient was stressed using dobutamine protocol and injected 25.9 mCi of Tc99m Sestamibi intravenously. Another SPECT imaging of the heart was acquired. Gated cardi ac study was performed. FINDINGS: Post stress images show normal left ventricular cavity size. Radioisotope distribution is homogeneous throughout the left ventricle myocardium. No evidence of dobutamine-induced reversible i schemia. No fixed defect is visualized. The left ventricular ejection fraction is 69% and wall renny on is normal. IMPRESSION: 1. SPECT myocardial imaging at stress and rest is normal 2. Normal cardiac systolic function and normal wall motion
--- NOTE | 2017-07-25 10:56 | ED.PDOC ---
Procedures - IV/Art Line Insertion Location: lt wrist Type of Line: Peripheral IV Invasive Line/IV Catheter Gauge: 24 Number of Attempts: 1 Blood Return Positive: Yes Invasive Line/IV Flushes Without Difficulty: Yes Conscious Sedation - Pre-op Assessment Surgical History: hysterectomy, colon resection, gallbladder - Medical History Past Medical History: Hypertension, CVA, Depression, Anxiety, CAD Other History: pagettes disease
--- NOTE | 2017-07-25 11:00 | ECHO2D ---
Date of Exam: [] Ordering Physician: [] Room #: [] Reason for Echo: [] Auscultation: [] Murmurs: [] M-Mode Normal Adult Results LV Dimensions Normal Adult Results AoV Opening excursions >1.6 [] LVEDD-base- 3.5-5.8 [] Ao root dimensions 2.0-3.7 [] LVESD-base- 3.1-4.6 [] L. Atrium dimensions 1.9-3.8 [] Post. Wall thickness 0.8-1.1 [] IV septum (thickness) 0.7-1.2 [] Post. Wall excursion 0.72-1.3 [] Septal motion [] Systolic motion R. Ventricular cavity 1.5-2.0 [] LVEF 60% [] Paradoxical septal wall motion [] 2-D : [] M-MODE: MV: [] AV: [] TV: [] PV: [] CHAMBER SIZE: [] WALL MOTION: [] PERICARDIUM: [] INTERPRETATION: 1. [] 2. [] 3. [] 4. [] MTDD
--- NOTE | 2017-07-26 12:09 | DOBSTECHST ---
Ordering Physician: DR. SAGE MCCORMACK Date of Test: 07/25/17 Occupation: RETIRED Reason for Examination: CHEST PAIN, PALPITATIONS, SOB Smoking History: NON SMOKER Height: 62" WEIGHT: 138 LBS Current Medications: COREG, COZAAR, NORVASC, PROTONIX, ATIVAN, CIMETIDINE, TRAMADOL, ANTIVERT, FOSAMAX, LEXAPRO, LIBRIUM, ASA Target Heart Rate: 118/ 139 S-T Segment Stage Time HR BPM BP mmhg Rhythm +/- Elevation Depression Comments/ Symptoms Control Sitting 84 122/70 SR X NO SYMPTOMS Dobutamine 250mg/D5W 5cmg/KG/mn 10cmg/KG/mn 3:00 106 SR X NO SYMPTOMS 15cmg/KG/mn 1:31 142 160/80 SR X NO SYMPTOMS 20cmg/KG/mn 25cmg/KG/mn 30cmg/KG/mn 35cmg/KG/mn 40cmg/KG/mn Time: 3:00 HR B/P Time: 8:00 HR B/P Time: 11 HR B/P Recovery 130 192/100 Recovery 108 180/92 Recovery 98 Total Time: 4:31 Highest Heart Rate Reached: 142 99% Oxygen Saturation with Dobutamine Interpretation: 1. NO EVIDENCE OF ISCHEMIA BY ST-T WAVE 2. NO CHEST PAIN OR CHEST DISCOMFORT 3. NORMAL LEFT VENTRICULAR CONTRACTILITY--RESTING AND DURING DOBUTAMINE INFUSION THALLIUM TO FOLLOW MTDD
--- NOTE | 2017-07-26 12:12 | ECHOSTRESS ---
Date of Exam: 07/25/17 Ordering Physician: DR. SAGE MCCORMACK Reason for Echo: CHEST PAIN, DOBUTAMINE STRESS--NO ISCHEMIA M-Mode Normal Adult Results LV Dimensions Normal Adult Results AoV Opening excursions >1.6 LVEDD-base- 3.5-5.8 Ao root dimensions 2.0-3.7 LVESD-base- 3.1-4.6 L. Atrium dimensions 1.9-3.8 Post. Wall thickness 0.8-1.1 IV septum (thickness) 0.7-1.2 Post. Wall excursion 0.72-1.3 Septal motion Systolic motion R. Ventricular cavity 1.5-2.0 LVEF 60% Paradoxical septal wall motion 2-D: NORMAL LEFT VENTRICULAR CONTRACTILITY--RESTING AND WITH DOBUTAMINE INFUSION M-MODE: MV: AV: TV: PV: CHAMBER SIZE: WALL MOTION: NORMAL LEFT VENTRICULAR CONTRACTILITY--RESTING AND WITH DOBUTAMINE INFUSION PERICARDIUM: INTERPRETATION: 1. NORMAL LEFT VENTRICULAR CONTRACTILITY--RESTING AND WITH DOBUTAMINE INFUSION MTDD
== END 2017-07-25 06:03 | disposition home or self-care (01) ==
LOC: CAR 06:02
PROVIDERS: ATTEND Internal Medicine
DX: R07.9 Chest pain, unspecified (principal); R06.02 Shortness of breath; R00.2 Palpitations; I10 Essential (primary) hypertension

== ENCOUNTER 2018-06-15 05:53 | Inpatient (IN) ==
[2018-06-15] MEDS ORDERED: SODIUM CHLORIDE 1,000 ML IV STA (06:32)
[2018-06-15] MEDS ORDERED: PHENERGAN 25 MG/ML VIAL 12.5 MG in SODIUM CHLORIDE 50 ML IV STA (06:32)
--- NOTE | 2018-06-15 06:36 | ED.PDOC ---
General Stated Complaint: the room is spinning Time Seen by Physician: 06:00 Mode of Arrival: Ambulance Information Source: Patient, Family, EMT Exam Limitations: No limitations Nursing and Triage Documentation Reviewed and Agree: Yes Does patient meet sepsis criteria?: No System Inflammatory Response Syndrome: Not Applicable <REBECA SANCHEZ - Last Filed: 06/15/18 06:33> <REBECA SERRA - Last Filed: 06/15/18 10:05> ED Provider: Dr. REBECA SERRA Chief Complaint: Dizziness Primary Care Provider: SAGE BISWAS Sepsis Protocol: For patient's 13 years and over: Temp is 96.8 and below OR 101 and greater Pulse >90 BPM Resp >20/minute Acutely Altered Mental Status Are patient's symptoms suggestive of a new infection, such as: -Pneumonia -Skin, Soft Tissue -Endocarditis -UTI -Bone, Joint Infection -Implantable Device -Acute Abdominal Infection -Wound Infection -Meningitis -Blood Stream Catheter Infection -Unknown Neurological Complaint Exam - Dizziness Complaint/Exam Last Known Well: yesterday Onset: Sudden Duration: 4-5 hrs Symptoms Are: Still present Timing: Constant Initial Severity: Mild Current Severity: Moderate Character: Reports: Head spinning, Room spinning Aggravating: Reports: Position change, Change in head position Alleviating: Reports: Rest, Lying down, Closing eyes Associated Signs and Symptoms: Reports: Nausea, Loss of balance Cardiac Risk Factors: Reports: Hypertension CVA Risk Factors: Reports: Hypertension JVD Present: No Glascow Coma Scale (see protocol): 15 Nystagmus Present: No Gag Reflex Present: Yes Meningeal Signs Positive: No Focal Weakness: Present: None Focal Sensory Loss: Present: None Gait: Unsteady Romberg Test Positive: No Babinski Sign: Negative Right, Negative Left Differential Diagnoses: BPPV, Labyrinthitis, Meniere's Quality Indicator For Non-Traumatic Chest Pain/Syncope: EKG Performed <REBECA SANCHEZ - Last Filed: 06/15/18 06:33> Review of Systems - Review Of Systems Constitutional: Reports: No symptoms Eyes: Reports: No symptoms Ears, Nose, Mouth, Throat: Reports: No symptoms Respiratory: Reports: No symptoms Cardiac: Reports: No symptoms GI: Reports: Nausea : Reports: No symptoms Musculoskeletal: Reports: No symptoms Skin: Reports: No symptoms Neurological: Reports: No symptoms Endocrine: Reports: No symptoms Hematologic/Lymphatic: Reports: No symptoms All Other Systems: Reviewed and Negative <LAURAREBECA Last Filed: 06/15/18 06:33> Past Medical History - Past Medical History Previously Healthy: Yes Endocrine: Reports: Dyslipidemia Cardiovascular: Reports: Hypertension Respiratory: Reports: None Hematological: Reports: None Gastrointestinal: Reports: None Genitourinary: Reports: None Neuro/Psych: Reports: None Musculoskeletal: Reports: None Cancer: Reports: None Last Menstrual Period: na - Surgical History General Surgical History: Reports: Hysterectomy, Cholecystectomy - Family History Family History: Reports: Unknown - Social History Smoking Status: Current some day smoker, Light tobacco smoker Hx Substance Use: No Alcohol Screening: None - Immunizations Tetanus Shot up to Date: Yes <LAURAREBECA Last Filed: 06/15/18 06:33> Physical Exam - Physical Exam Appearance: Well-appearing, No pain distress, Well-nourished Eyes: MEGHAN, EOMI, Conjunctiva clear ENT: Ears normal, Nose normal, Oropharynx normal Neck: Supple Respiratory: Airway patent, Breath sounds clear, Breath sounds equal, Respirations nonlabored Cardiovascular: RRR, Pulses normal, No rub, No murmur GI/: Soft, Nontender, No masses, Bowel sounds normal, No Organomegaly Musculoskeletal: Normal strength, ROM intact, No edema, No calf tenderness Skin: Warm, Dry, Normal color Neurological: Sensation intact, Alert, Oriented Psychiatric: Affect appropriate, Mood appropriate <LAURAREBECA Last Filed: 06/15/18 06:33> Physician Notification - Case Discussed Physician Notified: dr serra Time of Notification: 07:00 <LAURAREBECA - Last Filed: 06/15/18 06:33> Critical Care Note - Critical Care Note Total Time (mins): 60 <REBECA SERRA - Last Filed: 06/15/18 10:05> Course - Course Hematology/Chemistry: 06/15/18 06:42 06/15/18 06:42 <REBECA SERRA - Last Filed: 06/15/18 10:05> - Course Orders, Labs, Meds: Lab Review 06/15/18 06/15/18 06/15/18 06:42 06:42 08:50 WBC 7.04 RBC 3.83 L Hgb 10.7 L Hct 32.8 L MCV 85.6 MCH 27.9 MCHC 32.6 RDW Coeff of Gerald 14.3 Plt Count 196 Immature Gran % (Auto) 0.4 Neut % (Auto) 77.2 Lymph % (Auto) 14.3 Ray % (Auto) 7.1 Eos % (Auto) 0.4 Baso % (Auto) 0.6 Immature Gran # (Auto) 0.0 Neut # (Auto) 5.4 Lymph # (Auto) 1.0 Ray # (Auto) 0.5 Eos # (Auto) 0.0 Baso # (Auto) 0.0 Sodium 135.4 Potassium 4.04 Chloride 104.0 Carbon Dioxide 24.8 Anion Gap 10.64 BUN 16.0 Creatinine 0.66 Estimated GFR (MDRD) 86.00 BUN/Creatinine Ratio 24.24 Glucose 131.0 H Calcium 8.77 Total Bilirubin 0.51 AST 23.7 ALT 13.6 Alkaline Phosphatase 82.9 Total Creatine Kinase 36.8 Troponin I < 0.012 Total Protein 6.61 Albumin 4.25 Globulin 2.36 Albumin/Globulin Ratio 1.80 Urine Color Yellow Urine Clarity Clear Urine pH 7.5 Ur Specific [place] 1.020 Urine Protein Negative Urine Glucose (UA) Negative Urine Ketones Negative Urine Blood Negative Urine Nitrite Negative Urine Bilirubin Negative Urine Urobilinogen 0.2 Ur Leukocyte Esterase Negative Orders Category Date Time Status EKG-(ED ONLY) Stat CARDIO 06/15/18 06:31 Completed EKG-(IP & OP ONLY) Routine CARDIO 06/15/18 15:00 Ordered ACTIVITY .BR with BRP CARE 06/15/18 09:41 Ordered BLOOD GLUCOSE MONITORING ACCUCHECK Q6H CARE 06/15/18 09:46 Ordered GIVE HS SNACK 2100 CARE 06/15/18 09:47 Ordered INTAKE & OUTPUT Q8HR CARE 06/15/18 09:41 Ordered VITAL SIGNS Q4HR CARE 06/15/18 09:41 Ordered ADA 1800 CURLY. DIET DIETARY 06/15/18 Breakfast Ordered ADA 1800 CURLY. DIET DIETARY 06/15/18 Lunch Ordered HS SNACK DIETARY 06/15/18 Dinner Ordered ED RING ROLLING MACHINE OPERATOR APPLIED .ONCE EMERGENCY 06/15/18 06:31 Active ED IV/MEDIPORT/POWERPORT .ONCE EMERGENCY 06/15/18 06:31 Active CBC W/ AUTO DIFF DAILY@0600 LAB 06/16/18 06:00 Ordered CBC W/ AUTO DIFF DAILY@0600 LAB 06/17/18 06:00 Ordered CBC W/ AUTO DIFF Stat LAB 06/15/18 06:42 Completed COMPREHENSIVE METABOLIC PANEL DAILY@0600 LAB 06/16/18 06:00 Ordered COMPREHENSIVE METABOLIC PANEL DAILY@0600 LAB 06/17/18 06:00 Ordered COMPREHENSIVE METABOLIC PANEL Stat LAB 06/15/18 06:42 Completed CREATINE KINASE Q8H LAB 06/15/18 16:00 Ordered CREATINE KINASE Q8H LAB 06/16/18 00:00 Ordered CREATINE KINASE Stat LAB 06/15/18 06:42 Completed TROPONIN I Q8H LAB 06/15/18 16:00 Ordered TROPONIN I Q8H LAB 06/16/18 00:00 Ordered TROPONIN I Stat LAB 06/15/18 06:42 Completed URINALYSIS C & S IF INDICATED Stat LAB 06/15/18 08:50 Completed 0.9 % Sodium Chloride [Saline Flush] MEDS 06/15/18 06:31 Active 1 syr IVF PRN PRN Losartan Potassium [Cozaar] MEDS 06/15/18 09:16 Discontinued 100 mg PO ONCE STA Meclizine HCl [Antivert] MEDS 06/15/18 08:35 Discontinued 25 mg PO ONCE STA Promethazine HCl [Phenergan 25 mg/ml Vial] MEDS 06/15/18 06:37 Discontinued 25 mg .ROUTE .STK-MED ONE Promethazine HCl [Phenergan 25 mg/ml Vial] 12.5 mg MEDS 06/15/18 06:32 Discontinued 0.9 % Sodium Chloride [Sodium Chloride] 50 ml IV ONCE Sodium Chloride 0.9% [Sodium Chloride] 1,000 ml MEDS 06/15/18 10:00 Ordered IV 75 mls/hr Sodium Chloride 0.9% [Sodium Chloride] 1,000 ml MEDS 06/15/18 06:32 Discontinued IV BOLUS RESUSCITATION STATUS Routine OTHERS 06/15/18 09:[address] HEAD W/O CONTRAST Stat RADS 06/15/18 06:32 Completed PT CONSULT Routine THERAPIES 06/15/18 Ordered Medications Generic Name Dose Route Start Last Admin Trade Name Freq PRN Reason Stop Dose Admin Alendronate Sodium 70 mg 06/17/18 09:00 Fosamax PO WEEKLY YAW Aspirin 81 mg 06/16/18 08:00 Aspirin Chewable PO DAILYWM YAW Carvedilol 12.5 mg 06/15/18 10:00 Coreg PO BIDWM YAW Diazepam 2 mg 06/15/18 10:00 Valium PO Q8HR YAW Sodium Chloride 1,000 mls @ 75 mls/hr 06/15/18 10:00 Sodium Chloride IV .[id number] YAW Lorazepam 0.5 mg 06/15/18 21:00 Ativan PO BEDTIME YAW Losartan Potassium 100 mg 06/16/18 09:00 Cozaar PO DAILY YAW Meclizine HCl 25 mg 06/15/18 09:48 Antivert PO TID PRN Vertigo Sodium Chloride 1 syr 06/15/18 06:31 Saline Flush IVF PRN PRN To flush IV Tramadol HCl 50 mg 06/15/18 09:53 Ultram PO BID PRN Pain Discontinued Medications Generic Name Dose Route Start Last Admin Trade Name Freq PRN Reason Stop Dose Admin Promethazine HCl 12.5 mg/ 50.5 mls @ 75 mls/hr 06/15/18 06:32 06/15/18 07:37 Sodium Chloride IV 06/15/18 07:12 75 mls/hr ONCE STA Administration Sodium Chloride 1,000 mls @ 1,000 mls/hr 06/15/18 06:32 06/15/18 07:39 Sodium Chloride IV 06/15/18 07:31 1,000 mls/hr BOLUS STA Administration Losartan Potassium 100 mg 06/15/18 09:16 06/15/18 09:31 Cozaar PO 06/15/18 09:17 100 mg ONCE STA Administration Meclizine HCl 25 mg 06/15/18 08:35 06/15/18 08:42 Antivert PO 06/15/18 08:36 25 mg ONCE STA Administration Vital Signs: Temp Pulse Resp BP Pulse Ox 06/15/18 05:54 87.7 F L 80 16 211/81 H 97 Departure <REBECA SANCHEZ - Last Filed: 06/15/18 06:33> - Departure Time of Disposition: 10:00 Pt referred to PMD for follow-up: Yes (Dr Biswas) IPMP verified?: No Disposition Discussed With: Patient, Family (Discussed with Dr Biswas who agreed with admission) <REBECA SERRA - Last Filed: 06/15/18 10:05> - Departure Disposition: ADMITTED INPATIENT Discharge Problem: Sinusitis, Labyrinthitis, Vertigo, Uncontrolled hypertension Condition: Good Allergies/Adverse Reactions: Allergies clarithromycin [From Biaxin] Adverse Reaction (Verified 06/15/18 06:13) Penicillins Adverse Reaction (Verified 06/15/18 06:13) Sulfa (Sulfonamide Antibiotics) Adverse Reaction (Verified 06/15/18 06:13) Home Medications: Ambulatory Orders Lorazepam [Ativan] 0.5 mg PO BEDTIME 07/11/15 Alendronate Sodium [Fosamax] 70 mg PO WEEKLY 07/02/17 Aspirin [Marichuy Chewable Aspirin] 81 mg PO DAILY 07/02/17 Carvedilol [Coreg] 12.5 mg PO BID #60 tablet 07/11/17 Losartan Potassium [Cozaar] 50 mg PO BID #60 tablet 07/11/17 Tramadol HCl 50 mg PO BID PRN #30 tablet 07/11/17
[2018-06-15] MEDS ORDERED: PHENERGAN 25 MG/ML VIAL ONE (06:37)
--- NOTE | 2018-06-15 07:09 | CT ---
EXAM: CT brain without contrast HISTORY: Dizziness TECHNIQUE: CT of the brain without intravenous contrast FINDINGS: There is no acute hemorrhage midline shift or mass effect. No hydrocephalus or abnormal e xtra-axial fluid collection. Generalized involutional atrophy, mild. Chronic microvascular changes of the white matter tracts, mild. No acute large vessel territorial infarct is seen. Atheroscleroti c vascular calcifications are present. The bony cranium appears normal. The visualized paranasal si nuses are clear. Soft tissues without significant abnormality. IMPRESSION: 1. Chronic changes as described. No acute intracranial abnormality is seen.
[2018-06-15] MEDS ORDERED: ANTIVERT PO STA (08:35)
[2018-06-15] MEDS ORDERED: COZAAR PO STA (09:16)
[2018-06-15 10:20] VITALS: BMI 26.3
[2018-06-15] MEDS: COREG PO SCH ×2 (10:37→17:08)
[2018-06-15] MEDS: DECADRON 4 MG/ML SDV IVP SCH ×3 (10:42→21:08)
[2018-06-15] MEDS ORDERED: VASOTEC IV IVP PRN (11:25)
[2018-06-15] MEDS: DOXYCYCLINE HYCLATE PO SCH ×2 (12:22→21:08)
[2018-06-15] MEDS: VALIUM PO SCH ×3 (12:23→21:08)
[2018-06-15] MEDS: SODIUM CHLORIDE 1,000 ML IV SCH ×2 (12:36→18:51)
[2018-06-15] MEDS: ZOFRAN 4 MG/2 ML IVP PRN (16:28)
[2018-06-15] MEDS: ANTIVERT PO PRN (17:08)
[2018-06-15] MEDS: ATIVAN PO SCH (21:08)
[2018-06-16] MEDS: ZOFRAN 4 MG/2 ML IVP PRN (00:34)
[2018-06-16] MEDS: DECADRON 4 MG/ML SDV IVP SCH ×3 (04:57→20:21)
[2018-06-16] MEDS: VALIUM PO SCH ×3 (04:58→20:22)
[2018-06-16] MEDS: SODIUM CHLORIDE 1,000 ML IV SCH ×2 (07:58→22:38)
[2018-06-16] MEDS: COREG PO SCH ×2 (08:01→16:29)
[2018-06-16] MEDS: ASPIRIN CHEWABLE PO SCH (08:01)
[2018-06-16] MEDS: COZAAR PO SCH (08:01)
[2018-06-16] MEDS: DOXYCYCLINE HYCLATE PO SCH ×2 (08:02→20:21)
[2018-06-16] MEDS: TORADOL IVP PRN (12:18)
[2018-06-16] MEDS: ATIVAN PO SCH (20:22)
[2018-06-16] MEDS: ULTRAM PO PRN (20:22)
[2018-06-17] MEDS: VALIUM PO SCH ×3 (04:45→20:16)
[2018-06-17] MEDS: DECADRON 4 MG/ML SDV IVP SCH (04:45)
[2018-06-17] MEDS: ULTRAM PO PRN ×2 (06:05→14:15)
[2018-06-17] MEDS ORDERED: FOSAMAX PO SCH (09:00)
--- NOTE | 2018-06-17 09:20 | PCM.PROG ---
Attending Provider: ATTENDING PROVIDER: Dr. SAGE MCCORMACK DATE OF SERVICE: 06/17/18 SUBJECTIVE: This 83 year old WHITE/ F was hospitalized 06/15/18 with vertigo, severe nausea and dizziness. The patient cardiovascular status is stable. She has headache, which she had yesterday; more like sinus. REVIEW OF SYSTEMS: CONSTITUTIONAL: No night sweats. No fatigue, malaise, lethargy. No fever or chills. HEENT: Eyes: No visual changes. No eye pain. No eye discharge. ENT: No runny nose. No epistaxis. No sinus pain. No odynophagia. No congestion. RESPIRATORY: No cough, no congestion. No hemoptysis. No shortness of breath. CARDIOVASCULAR: No angina symptoms. No CHF symptoms. No atypical chest pain for CAD. No palpitations. No orthopnea.. GASTROINTESTINAL: No abdominal pain. No nausea or vomiting. No diarrhea or constipation. No hematemesis. No hematochezia. GENITOURINARY: No urgency. No frequency. No dysuria. No hematuria. No obstructive symptoms. No discharge. No pain. No significant abnormal bleeding. MUSCULOSKELETAL: No musculoskeletal pain; no joint swelling. NEUROLOGICAL: Awake, alert, oriented to time, place and person. No headache. No neck pain. No syncope. No seizures. No dizziness. PSYCHIATRIC: Not anxious. No depression. No suicidal thoughts. No homicidal thoughts. SKIN: No rash. No lesions. No wounds. ENDOCRINE: No unexplained weight loss. No weight gain. HEMATOLOGIC/LYMPHATIC: No anemia. No purpura. No petechiae. No prolonged or excessive bleeding. No palpable lymph nodes. PHYSICAL EXAMINATION: GENERAL: The patient is awake, alert and oriented, lying in bed in no distress. VITAL SIGNS: Temperature 98.1 F, Pulse 72, Respiratory Rate 17, BP 162/86, Pulse Ox 98% HEENT: Head normocephalic, atraumatic. Eyes: Extraocular muscles are intact. Pupils are equal, round and reactive to light and accommodation. Ears: No lesions. Nose appeared normal. Throat: No exudate or erythema. NECK: Supple. No JVD, no carotid bruit. No lymphadenopathy or thyromegaly. LUNGS: Clear to auscultation. Percussion note normal. Chest symmetrical. HEART: S1, S2, no S3. No murmurs. No cyanosis or clubbing. No ascites. Pulses: Dorsalis pedis and posterior tibial pulses +1 to +2 both sides. ABDOMEN: Soft. Non-tender. Bowel sounds active. No CVA tenderness. No mass felt. EXTREMITIES: No edema. Full range of motion of all extremities, equal. NEUROLOGIC: No focal deficit. Cranial nerves II through XII are grossly intact. No headache, no double vision or headache. SKIN: Warm and dry. Intact. Turgor-normal. LYMPHATIC: No palpable lymph nodes/no lymphedema. MUSCULOSKELETAL: Normal joints with no swelling. Muscle tone is normal. LAB REVIEW: 06/17/18 04:50 06/17/18 04:50 06/17/18 04:50: Sodium 133.7 L, Potassium 4.46, Chloride 105.2, Carbon Dioxide 20.9 L, Anion Gap 12.06, BUN 32.4 H, Creatinine 0.91, Estimated GFR (MDRD) 59.00 , BUN/Creatinine Ratio 35.60, Glucose 145.8 H, Calcium 8.61, Total Bilirubin 0.47, AST 20.1, ALT 14.2, Alkaline Phosphatase 62.8, Total Protein 6.39, Albumin 4.05, Globulin 2.34, Albumin/Globulin Ratio 1.73 06/17/18 04:50: WBC 10.63 H D, RBC 3.61 L, Hgb 10.2 L, Hct 31.0 L, MCV 85.9, MCH 28.3, MCHC 32.9, RDW Coeff of Gerald 14.3, Plt Count 208 D, Immature Gran % ( Auto) 0.8, Neut % (Auto) 86.0, Lymph % (Auto) 9.6 L, [place] % (Auto) 3.5, Eos % ( Auto) 0.0, Baso % (Auto) 0.1, Immature Gran # (Auto) 0.1, Neut # (Auto) 9.1 H, Lymph # (Auto) 1.0, [place] # (Auto) 0.4, Eos # (Auto) 0.0, Baso # (Auto) 0.0 ASSESSMENT: 1. Vertigo. 2. Acute sinusitis on Doxycycline and steroids. 3. Blood pressure is better but systolic fluctuates. PLAN: 1. Carotid and vertebral scan. 2. MRI of brain with contrast. 3. Decrease Decadron to 1 cc daily. Plan and coordination of the patient's care discussed in the presence of Restaurant Mgr and nurse. CONDITION: Stable SCRIBED BY: NEIL LITTLE [employer] Merchant scribed while in presence of service performed by Dr. SAGE MCCORMACK on 06/17/18 ([id number])
[2018-06-17] MEDS: DOXYCYCLINE HYCLATE PO SCH ×2 (09:29→20:15)
[2018-06-17] MEDS: ASPIRIN CHEWABLE PO SCH (09:29)
[2018-06-17] MEDS: COZAAR PO SCH (09:29)
[2018-06-17] MEDS: ANTIVERT PO PRN (09:30)
[2018-06-17] MEDS: COREG PO SCH ×2 (09:30→18:38)
[2018-06-17] MEDS: TORADOL IVP PRN (09:31)
--- NOTE | 2018-06-17 13:23 | US ---
EXAM: ULTRASOUND CAROTID DUPLEX, BILATERAL HISTORY: Headaches FINDINGS: Walls-scale ultrasound, color Doppler and spectral analysis was performed. Velocities are in meters per second. By walls scale and color Doppler imaging, there were regions of heterogeneous plaque formation identi fied within the carotid bulbs and internal carotid arteries. These regions of plaque appeared to rem ain less than 50% vessel diameter. RIGHT: External carotid artery peak systolic velocity: 1.0/0.03 Common carotid artery peak systolic velocity/end diastolic velocity: 0.82/0.09 Internal carotid artery peak systolic velocity: 0.73 ICA/CCA peak systolic velocity ratio: 0.9 ICA end diastolic velocity: 0.17 LEFT: External carotid artery peak systolic velocity: 0.66/0.13 Common carotid artery peak systolic velocity/end diastolic velocity: 0.61/0.11 Internal carotid artery peak systolic velocity: 0.79 ICA/CCA peak systolic velocity ratio: 1.3 ICA end diastolic velocity: 0.21 The right and left vertebral arteries were antegrade. IMPRESSION: 1. By walls scale and color Doppler imaging, there were regions of heterogeneous plaque formation i dentified within the carotid bulbs and internal carotid arteries. These regions of plaque appeared t o remain less than 50% vessel diameter. 2. Internal carotid artery peak systolic velocities and ICA/CCA peak systolic velocity ratios indica te no hemodynamically significant stenosis bilaterally. 3. Both vertebral arteries were antegrade.
--- NOTE | 2018-06-17 15:52 | MRI ---
EXAM: Brain MRI with and without contrast. HISTORY: Headache. COMPARISON: Head CT 06/15/2018, head CT 03/24 2017 and brain MRI 04/23/2014. TECHNIQUE: Multiplanar, multisequence MR images were acquired of the brain before and after administ ration of intravenous contrast. FINDINGS: The midline structures are central and the craniocervical junction is unremarkable. The v entricles, sulci and cisterns are normal in size and configuration. There are no abnormal extra-axia l fluid collections. The brain parenchyma has no diffusion restriction to suggest acute hypoperfusion or infarction. Ther e is a small chronic 2 mm x 10 mm infarct in the inferior right cerebellum, a chronic 2.7 mm lacuna i n the mid medial right cerebellum, a 6 mm chronic bilobed lacuna in the left frontal periventricular white matter and a chronic 6.5 mm lacuna in the left frontal centrum semiovale. A band periventricul ar T2 hyperintensity is present and there are patchy T2 hyperintensities in the supratentorial white matter, deep white matter tracts and javier. These are most numerous in the centrum semiovale bilatera lly. 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 There are no abnormal foci o f dark gradient echo signal. After administration of gadolinium, no enhancing lesions are identified . The corpus callosum is normal. The sella is expanded and the pituitary gland is small and flatten ed inferiorly consistent with a partial empty sella. Enhancement is homogeneous and the infundibulum is midline. There are no intraorbital masses. There has been previous lens surgery bilaterally. Minor mucosal t hickening is present in the ethmoid air cells bilaterally. Remainder the paranasal sinuses, middle e ars and mastoids are clear. There is no abnormal contrast enhancement in the internal auditory canal s or labyrinthine structures. Flow voids are present in the major intracranial arteries and dural venous sinuses. IMPRESSION: 1. No intracranial mass, hemorrhage or acute cerebral infarct. 2. Small chronic infarcts right cerebellum, left frontal periventricular white matter and left front al centrum semiovale. 3. 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 4. Partial empty sella.
[2018-06-17] MEDS: ATIVAN PO SCH (20:15)
[2018-06-17] MEDS: ZOFRAN 4 MG/2 ML IVP PRN (23:01)
[2018-06-18] MEDS: VALIUM PO SCH ×3 (04:27→20:18)
[2018-06-18] MEDS ORDERED: DECADRON 4 MG/ML SDV IVP SCH (09:00)
[2018-06-18] MEDS: DOXYCYCLINE HYCLATE PO SCH ×2 (09:03→20:19)
[2018-06-18] MEDS: ASPIRIN CHEWABLE PO SCH (09:03)
[2018-06-18] MEDS: COZAAR PO SCH (09:04)
[2018-06-18] MEDS: COREG PO SCH ×2 (09:04→16:33)
--- NOTE | 2018-06-18 09:25 | PCM.PROG ---
Attending Provider: ATTENDING PROVIDER: Dr. SAGE MCCORMACK DATE OF SERVICE: 06/18/18 SUBJECTIVE: This 83 year old WHITE/ F was hospitalized 06/15/18 with vertigo. The patient condition has improved. MRI was negative for any acute event. She has old infarct. Blood pressure is well-controlled. REVIEW OF SYSTEMS: CONSTITUTIONAL: No night sweats. No fatigue, malaise, lethargy. No fever or chills. HEENT: Eyes: No visual changes. No eye pain. No eye discharge. ENT: No runny nose. No epistaxis. No sinus pain. No odynophagia. No congestion. RESPIRATORY: No cough, no congestion. No hemoptysis. No shortness of breath. CARDIOVASCULAR: No angina symptoms. No CHF symptoms. No atypical chest pain for CAD. No palpitations. No orthopnea.. GASTROINTESTINAL: No abdominal pain. No nausea or vomiting. No diarrhea or constipation. No hematemesis. No hematochezia. GENITOURINARY: No urgency. No frequency. No dysuria. No hematuria. No obstructive symptoms. No discharge. No pain. No significant abnormal bleeding. MUSCULOSKELETAL: No musculoskeletal pain; no joint swelling. NEUROLOGICAL: Awake, alert, oriented to time, place and person. No headache. No neck pain. No syncope. No seizures. No dizziness. PSYCHIATRIC: Not anxious. No depression. No suicidal thoughts. No homicidal thoughts. SKIN: No rash. No lesions. No wounds. ENDOCRINE: No unexplained weight loss. No weight gain. HEMATOLOGIC/LYMPHATIC: No anemia. No purpura. No petechiae. No prolonged or excessive bleeding. No palpable lymph nodes. PHYSICAL EXAMINATION: GENERAL: The patient is awake, alert and oriented, lying in bed in no distress. VITAL SIGNS: Temperature 97.4 F, Pulse 71, Respiratory Rate 17, BP 131/76, Pulse Ox 96% HEENT: Head normocephalic, atraumatic. Eyes: Extraocular muscles are intact. Pupils are equal, round and reactive to light and accommodation. Ears: No lesions. Nose appeared normal. Throat: No exudate or erythema. NECK: Supple. No JVD, no carotid bruit. No lymphadenopathy or thyromegaly. LUNGS: Clear to auscultation. Percussion note normal. Chest symmetrical. HEART: S1, S2, no S3. No murmurs. No cyanosis or clubbing. No ascites. Pulses: Dorsalis pedis and posterior tibial pulses +1 to +2 both sides. ABDOMEN: Soft. Non-tender. Bowel sounds active. No CVA tenderness. No mass felt. EXTREMITIES: No edema. Full range of motion of all extremities, equal. NEUROLOGIC: No focal deficit. Cranial nerves II through XII are grossly intact. No headache, no double vision or headache. SKIN: Warm and dry. Intact. Turgor-normal. LYMPHATIC: No palpable lymph nodes/no lymphedema. MUSCULOSKELETAL: Normal joints with no swelling. Muscle tone is normal. LAB REVIEW: 06/18/18 04:15 06/18/18 04:15 06/18/18 04:15: Sodium 132.5 L, Potassium 4.07, Chloride 105.5, Carbon Dioxide 21.0 L, Anion Gap 10.07, BUN 35.2 H, Creatinine 0.85, Estimated GFR (MDRD) 64.00 , BUN/Creatinine Ratio 41.41, Glucose 128.6 H, Calcium 8.39 L, Total Bilirubin 0.81, AST 24.3, ALT 17.2, Alkaline Phosphatase 78.4, Total Protein 6.12 L, Albumin 3.82, Globulin 2.30, Albumin/Globulin Ratio 1.66 06/18/18 04:15: WBC 15.11 H, RBC 3.93 L, Hgb 11.0 L, Hct 34.0 L, MCV 86.5, MCH 28.0, MCHC 32.4, RDW Coeff of Gerald 14.1, Plt Count 208, Immature Gran % (Auto) 0.6, Neut % (Auto) 79.6, Lymph % (Auto) 9.5 L, [place] % (Auto) 10.1 H, Eos % (Auto ) 0.1, Baso % (Auto) 0.1, Immature Gran # (Auto) 0.1, Neut # (Auto) 12.0 H, Lymph # (Auto) 1.4, [place] # (Auto) 1.5, Eos # (Auto) 0.0, Baso # (Auto) 0.0 ASSESSMENT: 1. VERTIGO 2. HYPERTENSION PLAN: 1. Continue Valium and Antivert. 2. Will do echocardiogram to evaluate LV function. 3. D/C Decadron. 4. Regular diet. 5. Encourage the patient to walk today. Plan and coordination of the patient's care discussed in the presence of Laboratory Technologist and nurse. CONDITION: Stable SCRIBED BY: NEIL LITTLE [employer] scribed while in presence of service performed by Dr. SAGE MCCORMACK on 06/18/18 ([id number])
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
--- NOTE | 2018-06-18 09:49 | HP ---
DATE OF SERVICE: 06/15/18 REASON FOR HOSPITALIZATION: Vertigo HISTORY OF PRESENT ILLNESS: 83 year old white female was brought to the emergency room by EMT with family because of severe onset of spinning of the room. Started on the morning of hospitalization. The patient has this patient off and on and in the emergency room she was examined by ER attending. The blood pressure was 211/80, temperature was 97.7, pulse 80, respiratory rate of 16 with oxygen saturation of 97%. PAST MEDICAL HISTORY/ PAST SURGICAL HISTORY: Dementia Anxiety syndrome Osteoporosis Chronic lung disease with smoking History of hypertension Depression Dyslipidemia Chronic anemia Paget's disease Left Carotid endarterectomy, 2002 Vitamin B 12 deficiency Noncompliance with medication, followup and diet History of coronary artery disease with stent Stents were put in for coronary artery disease in 2002. REVIEW OF SYSTEMS: CONSTITUTIONAL: No night sweats. Fatigue and weakness. No fever or chills. HEENT: Eyes: No visual changes. No eye pain. No eye discharge. ENT: No runny nose. No epistaxis. No sinus pain. No sore throat. No odynophagia. No ear pain. No congestion. RESPIRATORY: No cough, no congestion. No hemoptysis. No shortness of breath. CARDIOVASCULAR: No angina symptoms. No CHF symptoms. No atypical chest pain for CAD. No palpitations. No PND. No orthopnea. Dizziness and Vertigo. GASTROINTESTINAL: No abdominal pain. No nausea or vomiting. No diarrhea or constipation. No hematemesis. No hematochezia. GENITOURINARY: No urgency. No frequency. No dysuria. No hematuria. No obstructive symptoms. No discharge. No pain. No significant abnormal bleeding. MUSCULOSKELETAL: No musculoskeletal pain. No joint swelling. No arthritis. NEUROLOGICAL: No headache. No neck pain. No syncope. No seizures. Dizziness. PSYCHIATRIC: Not anxious. No depression. No suicidal thoughts. No homicidal thoughts. SKIN: No rash. No lesions. No wounds. ENDOCRINE: No unexplained weight loss. No weight gain. HEMATOLOGIC/LYMPHATIC: No anemia. No purpura. No petechiae. No prolonged or excessive bleeding. No palpable lymph nodes. PERSONAL/FAMILY/SOCIAL HISTORY: The patient is in the past smoker and still smokes more than a pack a day, no alcohol abuse. and lives with the help of daughter. She doesn't get along with the daughter. MEDICATIONS: Ativan Fosamax Aspirin Coreg Losartan Tramadol ALLERGIES: Clarithromycin Penicillins Sulfa PHYSICAL EXAMINATION: VITAL SIGNS: Temperature 98.3, pulse 76, respiratory rate 16, blood pressure 211/81 and pulse ox 97%. HEENT: Head normocephalic, atraumatic. Eyes: Extraocular muscles are intact. Pupils are equal, round and reactive to light and accommodation. Ears: No lesions. Nose appeared normal. Throat: No exudate or erythema. NECK: Supple. No JVP, no carotid bruit. No lymphadenopathy or thyromegaly. LUNGS: Clear to auscultation. Percussion note normal. Chest symmetrical. HEART: S1, S2, no S3. No murmurs. No cyanosis or clubbing. No ascites. Pulses: Dorsalis pedis and posterior tibial pulses +1 to +2 bilaterally. ABDOMEN: Soft. Nontender. Bowel sounds active. No CVA tenderness. No mass felt. EXTREMITIES: No edema. Full range of motion of all extremities, equal. NEUROLOGIC: No focal deficit. Cranial nerves II through XII are grossly intact. No headache, no double vision or headache. SKIN: Not dry. Intact. Turgor - normal. LYMPHATIC: No palpable lymph nodes/no lymphedema. MUSCULOSKELETAL: Normal joints with no swelling. Muscle tone is normal. ASSESSMENT: 1. Vertigo with nausea and vomiting and hypertension 2. Severe hypertension 3. Dementia 4. Anxiety syndrome 5. Osteoporosis 6. Chronic lung disease with smoking 7. History of hypertension 8. Depression 9. Dyslipidemia 10. Chronic anemia 11. Paget's disease 12. Left Carotid endarterectomy, 2002 13. Vitamin B 12 deficiency 14. Noncompliance with medication, followup and diet 15. History of coronary artery disease with stent 16. Stents were put in for coronary artery disease in 2002. PLAN: 1. Give IV fluids 2. Valium 5 mg three times a day 3. Antivert 25mg three times a day 4. Vasotec 1.25mg IV Q 8 hours for blood pressure systolic of more than [address] scan of the head was negative. CONDITION: Stable. TIME SPENT: More than 70 minutes. MTDD
[2018-06-18] MEDS: ATIVAN PO SCH (20:19)
[2018-06-19] MEDS: VALIUM PO SCH ×3 (05:54→20:44)
[2018-06-19] MEDS: COZAAR PO SCH (09:02)
[2018-06-19] MEDS: DOXYCYCLINE HYCLATE PO SCH ×2 (09:02→20:44)
[2018-06-19] MEDS: ASPIRIN CHEWABLE PO SCH (09:02)
[2018-06-19] MEDS: COREG PO SCH ×2 (09:03→16:46)
[2018-06-19] MEDS: ANTIVERT PO PRN ×2 (09:18→16:08)
--- NOTE | 2018-06-19 14:01 | ECHO2D ---
Date of Exam: 06/19/18 Ordering Physician: DR. SAGE MCCORMACK Room #: 114 Reason for Echo: VERTIGO, HYPERTENSION, COPD, CAD M-Mode Normal Adult Results LV Dimensions Normal Adult Results AoV Opening excursions >1.6 >1.6 LVEDD-base- 3.5-5.8 3.7 Ao root dimensions 2.0-3.7 3.4 LVESD-base- 3.1-4.6 L. Atrium dimensions 1.9-3.8 4.5 Post. Wall thickness 0.8-1.1 1.3 IV septum (thickness) 0.7-1.2 1.4 Post. Wall excursion 0.72-1.3 NORMAL Septal motion NORMAL Systolic motion R. Ventricular cavity 1.5-2.0 NORMAL LVEF 60% 70% Paradoxical septal wall motion NORMAL 2-D : 2-D M Mode Echocardiogram was performed using apical four chamber and left parasternal long and short axis views. Mitral, tricuspid and aortic valves appear to be normal. Contractility of the left ventricle seems to be normal, so is the cavity size. Enlarged Left atrial cavity. Aortic root appears to be normal. There is no pericardial effusion. There is no thrombus noted in the left ventricular or left aortic cavity. No mitral valve prolapse noted. M-MODE: MV: MITRAL VALVE ANNULUS CALCIFICATION AV: NORMAL TV: NORMAL PV: CHAMBER SIZE: ENLARGED LEFT ATRIAL CAVITY WALL MOTION: NORMAL PERICARDIUM: NORMAL INTERPRETATION: 1. LEFT VENTRICULAR HYPERTROPHY WITH ENLARGED LEFT ATRIAL CAVITY 2. NORMAL LEFT VENTRICULAR CONTRACTILITY 3. NORMAL VALVES MTDD
[2018-06-19] MEDS: ULTRAM PO PRN (20:44)
[2018-06-19] MEDS: ATIVAN PO SCH (20:44)
[2018-06-20] MEDS: VALIUM PO SCH ×2 (04:12→12:19)
[2018-06-20 06:00] VITALS: BP 128/61; TEMP 97.7
[2018-06-20] MEDS: ASPIRIN CHEWABLE PO SCH (08:26)
[2018-06-20] MEDS: COZAAR PO SCH (08:27)
[2018-06-20] MEDS: DOXYCYCLINE HYCLATE PO SCH (08:27)
[2018-06-20] MEDS: COREG PO SCH (08:27)
--- NOTE | 2018-06-20 08:48 | RS.PTINEVL ---
Subjective - Patient information Date of Evaluation: 06/19/18 Date of Arrival on Unit: 06/17/18 Admitted From:: Home Diagnosis: labrynthitis, vertigo, uncontrolled HTN Usual Living Arrangement: daughter Home Environment: Apartment, Stairs (few), Rail Medical History: Hypertension, CVA/TIA, COPD Medical History Comments:: paget's disease, CAD LATEX ALLERGY?: No Surgical History: Hysterectomy Surgical History Comments:: colon resection, Medications: see chart Subjective Information/ Patient Comments:: pt states she is more dizzy today, states she is feeling worse than yesterday. - Level of function Prior to this admission, the patient could do the following:: Independent Selfcare, Independent Ambulation Current Level of Function: Partially Dependent Current Equipment Used at Home: shower chair, has a walker at home but does not use it. Interventions - Objective Patient Orientation: Person, Place, Time, Situation Current Interventions: Telemetry Range of Motion - ROM Right Upper Extremity AROM: WFL's Left Upper Extremity AROM: WFL's Right Lower Extremity AROM: WFL's Left Lower Extremity AROM: WFL's Muscle Strength - Muscle Strength Right Upper Extremity Strength: Mild Weakness (grossly 4/5) Left Upper Extremity Strength: Mild Weakness (grossly 4/5) Right Lower Extremity Strength: Mild Weakness (hip flex 4-/5, knee flex/ext 4/5 , ankle DF/PF 4/5) Left Lower Extremity Strength: Mild Weakness (hip flex 4-/5, knee flex/ext 4/5, ankle DF/PF 4/5) Sensation - Sensation Right Upper Extremity Sensation: Intact/Normal Left Upper Extremity Sensation: Intact/Normal Right Lower Extremity Sensation: Intact/Normal Left Lower Extremity Sensation: Intact/Normal Palpation Palpation Findings: None/Normal Balance - Sitting Balance and Reactions Static Sitting Balance: Good Dynamic Sitting Balance: Fair - Standing Balance and Reactions Static Standing Balance: Poor Dynamic Standing Balance: Poor Standing Equilibrium Reactions: Delayed Left, Delayed Right Standing Protective Reactions: Delayed Left, Delayed Right - Comments Balance Assessment Comments: pt with 1 episode of LOB during eval, required mod assist to prevent fall. pt lost balance forward due to dizziness. Functional Mobility - Bed Mobility Rolling R/L: Independent Scooting: Supervision Supine to Sit: Supervision Sit to Supine: CGA - Transfers Sit to Stand: CGA Stand to Sit: Min Assist - Safety Awareness Safety Awareness: Fair WENDY INDEX SCORE: n/a Ambulation - Ambulation Assistive Device Used: Rolling Walker Orthotic/Prosthetic Device: No Distance: 140ft Assistance needed with Ambulation: CGA Gait Deviations: Forward posture, Short stride, Deviates from path Ambulation Comments: pt with decreased step length, flexed posture, pt deviates from path, due to dizziness. Factors Affecting Ambulation: Decreased Balance, Weakness, Dizziness (pt c/o nausea after amb due to severe dizziness, notified nursing they are going to offer her meds for dizziness), Decreased Safety, Limited Endurance Treatment time - Time with patient Length of Evaluation: 24 Total treatment time: 26 Patient Education - Education Patient Education: Activity Modification, Education of Plan of Care Teaching Recipient: Patient Teaching Methods: Discussion Comments: discussion regarding POC. Assessment - Assessment Problem List:: Decreased level of function, Requires training/education, Decreased safety/Risk of falls, Weakness Rehab Potential: Good Further Therapy Indicated?: Yes Candidate for Swing Bed for Therapy Services?: Feel pt not a candidate for swing bed therapy, due to high functional status. Feel pt would benefit from outpatient or home health PT after dc. Evaluation Complexity: HISTORY: Medium (HTN, CAD, CVA, COPD, vertigo), EXAM OF BODY SYSTEMS: Medium (balance, strength, gait, endurance), CLINICAL PRESENTATION : Medium, CLINICAL DECISION MAKING: Medium Short Term Goals GOAL #1: pt independent with scooting and bridging in bed Goal to be met by: 06/21/18 GOAL #2: pt transfer sup to/from sit independently Goal to be met by: 06/21/18 GOAL #3: Sit to/from stand SBA Goal to be met by: 06/21/18 GOAL #4: pt amb with rwx 150ft with CGA to SBA with no LOB Goal to be met by: 06/21/18 Halfway Goals GOAL #1: Transfer sit to/from stand independently Goal to be met by: 06/24/18 GOAL #2: pt amb with AD functional household distances SBA Goal to be met by: 06/24/18 GOAL #3: Ascend/descend 2 steps with HR CGA Goal to be met by: 06/24/18 Plan Plan of Care: Therapeutic EX, Therapeutic Activity Frequency of Treatment: 1-2 X day, as tolerated Duration of Treatment: 5 days Anticipated Discharge Destination: Home Treatment Diagnosis (ICD 10 Codes): R26.81 balance impaired. M62,81 muscle weakness. R 26.2 difficulty walking Has the Physician been added for Co-signature?: Yes
--- NOTE | 2018-06-20 09:18 | PCM.PROG ---
Attending Provider: ATTENDING PROVIDER: Dr. SAGE MCCORMACK DATE OF SERVICE: 06/20/18 SUBJECTIVE: This 83 year old WHITE/ F was hospitalized 06/15/18 with vertigo and hypertension. The patient's blood pressure is under control. She doesn't have dizziness anymore. REVIEW OF SYSTEMS: CONSTITUTIONAL: No night sweats. No fatigue, malaise, lethargy. No fever or chills. HEENT: Eyes: No visual changes. No eye pain. No eye discharge. ENT: No runny nose. No epistaxis. No sinus pain. No odynophagia. No congestion. RESPIRATORY: No cough, no congestion. No hemoptysis. No shortness of breath. CARDIOVASCULAR: No angina symptoms. No CHF symptoms. No atypical chest pain for CAD. No palpitations. No orthopnea.. GASTROINTESTINAL: No abdominal pain. No nausea or vomiting. No diarrhea or constipation. No hematemesis. No hematochezia. GENITOURINARY: No urgency. No frequency. No dysuria. No hematuria. No obstructive symptoms. No discharge. No pain. No significant abnormal bleeding. MUSCULOSKELETAL: No musculoskeletal pain; no joint swelling. NEUROLOGICAL: Awake, alert, oriented to time, place and person. No headache. No neck pain. No syncope. No seizures. No dizziness. PSYCHIATRIC: Not anxious. No depression. No suicidal thoughts. No homicidal thoughts. SKIN: No rash. No lesions. No wounds. ENDOCRINE: No unexplained weight loss. No weight gain. HEMATOLOGIC/LYMPHATIC: No anemia. No purpura. No petechiae. No prolonged or excessive bleeding. No palpable lymph nodes. PHYSICAL EXAMINATION: GENERAL: The patient is awake, alert and oriented, lying/sitting in bed in no distress. VITAL SIGNS: Temperature 97.7 F, Pulse 63, Respiratory Rate 16, BP 128/61, Pulse Ox 96% HEENT: Head normocephalic, atraumatic. Eyes: Extraocular muscles are intact. Pupils are equal, round and reactive to light and accommodation. Ears: No lesions. Nose appeared normal. Throat: No exudate or erythema. NECK: Supple. No JVD, no carotid bruit. No lymphadenopathy or thyromegaly. LUNGS: Clear to auscultation. Percussion note normal. Chest symmetrical. HEART: S1, S2, no S3. No murmurs. No cyanosis or clubbing. No ascites. Pulses: Dorsalis pedis and posterior tibial pulses +1 to +2 both sides. ABDOMEN: Soft. Non-tender. Bowel sounds active. No CVA tenderness. No mass felt. EXTREMITIES: No edema. Full range of motion of all extremities, equal. NEUROLOGIC: Neurological status is normal. No focal deficit. Cranial nerves II through XII are grossly intact. No headache, no double vision or headache. SKIN: Warm and dry. Intact. Turgor-normal. LYMPHATIC: No palpable lymph nodes/no lymphedema. MUSCULOSKELETAL: Normal joints with no swelling. Muscle tone is normal. LAB REVIEW: 06/20/18 05:00 06/20/18 05:00 06/20/18 05:00: Sodium 135.9, Potassium 4.09, Chloride 107.5 H, Carbon Dioxide 23.9, Anion Gap 8.59, BUN 19.3 H, Creatinine 0.80, Estimated GFR (MDRD) 69.00, BUN/Creatinine Ratio 24.12, Glucose 97.3, Calcium 8.01 L, Total Bilirubin 0.33, AST 16.6, ALT 13.1, Alkaline Phosphatase 67.6, Total Protein 5.54 L, Albumin 3.26 L, Globulin 2.28, Albumin/Globulin Ratio 1.42 06/20/18 05:00: WBC 7.77, RBC 3.85 L, Hgb 10.6 L, Hct 33.4 L, MCV 86.8, MCH 27.5 , MCHC 31.7 L, RDW Coeff of Gerald 14.3, Plt Count 193, Immature Gran % (Auto) 0.6 , Neut % (Auto) 49.8, Lymph % (Auto) 36.4, [place] % (Auto) 10.8 H, Eos % (Auto) 2.1, Baso % (Auto) 0.3, Immature Gran # (Auto) 0.1, Neut # (Auto) 3.9, Lymph # ( Auto) 2.8, [place] # (Auto) 0.8, Eos # (Auto) 0.2, Baso # (Auto) 0.0 ASSESSMENT: 1. Vertigo seems to be under control with Antivert and Valium. 2. Hypertension controlled. 3. Smoking - discussed with the patient and she states she will keep it to a minimum, 1 to 2 cigarettes a day. PLAN: 1. The patient is going to be discharged home on Antivert. 2. Referral to Dr. Gross as an outpatient. 3. Valium 2 mg one or two at night for dizziness #15. 4. Continue Doxycycline. 5. Counseling for smoking done. Plan and coordination of the patient's care discussed in the presence of Recovery Room Nurse and nurse. CONDITION: Stable SCRIBED BY: NEIL LITTLE Mental Health Technician scribed while in presence of service performed by Dr. SAGE MCCORMACK on 06/20/18 ([id number])
--- NOTE | 2018-06-20 11:52 | CM.DICTOOL ---
ADMISSION: 06/15/18 09:46 DISCHARGE: JUNE 20, 2018 DATE OF SERVICE: 06/20/18 FINAL DIAGNOSIS VERTIGO HYPERTENSION ACUTE SINUSITIS GERD ANEMIA B 12 DEFICIENCY COPD CVA, 1999 CAD WITH STENT APPLICATION DYSLIPIDEMIA PAGET'S DISEASE GENERAL ANXIETY DISORDER DEPRESSION CHOLECYSTECTOMY HYSTERECTOMY COLON RESECTION ESOPHAGEAL REPAIR LVH WITH ENLARGED LEFT ATRIAL CAVITY, LVEF 74% PER ECHO JUNE 2017 LAST VITALS Temp Pulse Resp BP Pulse Ox 97.7 F 63 16 128/61 96 06/20/18 05:58 06/20/18 05:58 06/20/18 05:58 06/20/18 05:58 06/20/18 05:58 TAKE THESE MEDICATIONS AT HOME Alendronate Sodium (Fosamax) 70 mg PO WEEKLY [facility] Last Admin: 06/17/18 09:29 Dose: 70 mg Aspirin (Aspirin Chewable) 81 mg PO DAILYWM [facility] Last Admin: 06/20/18 08:26 Dose: 81 mg Carvedilol (Coreg) 12.5 mg PO BIDWM [facility] Last Admin: 06/20/18 08:27 Dose: 12.5 mg Diazepam (Valium) 2 mg 1-2 tablets PO at BEDTIME PRN PRN Reason: dizziness Last Admin: 06/20/18 04:12 Dose: 2 mg Doxycycline Hyclate (Doxycycline Hyclate) 100 mg PO Q12HR [facility] Stop: 06/21/18 20:59 Last Admin: 06/20/18 08:27 Dose: 100 mg Lorazepam (Ativan) 0.5 mg PO BEDTIME [facility] Last Admin: 06/19/18 20:44 Dose: 0.5 mg Losartan Potassium (Cozaar) 100 mg PO DAILY [facility] Last Admin: 06/20/18 08:27 Dose: 100 mg Meclizine HCl (Antivert) 25 mg PO TID PRN PRN Reason: dizziness Last Admin: 06/19/18 16:08 Dose: 25 mg Tramadol HCl (Ultram) 50 mg PO BID PRN PRN Reason: Pain Last Admin: 06/19/18 20:44 Dose: 50 mg ALLERGIES clarithromycin [From Biaxin] Adverse Reaction (Verified 06/15/18 06:13) Penicillins Adverse Reaction (Verified 06/15/18 06:13) Sulfa (Sulfonamide Antibiotics) Adverse Reaction (Verified 06/15/18 06:13) DISCONTINUED MEDICATIONS LOSARTAN POTASSIUM (COZAAR) 50 MG TWICE A DAY NEW PRESCRIPTIONS: COZAAR 100 MG ONE TABLET BY MOUTH DAILY VALIUM 2 MG PO 1-2 TABLETS BY MOUTH AT BEDTIME NEEDED FOR DIZZINESS. DOXYCYCLINE HYCLATE 100 MG ONE CAPSULE BY MOUTH TWICE A DAY FOR THREE MORE DOSES. LAST DOSE 06/21/2018. ANTIVERT 25 MG 1 TABLET BY MOUTH THREE TIMES A DAY NEEDED FOR DIZZINESS. SMOKING: SMOKING CESSATION DISCUSSED. PT. IS AGREEABLE TO LIMIT CIGARETTES TO 1-2 A DAY. DISEASE SPECIFIC EDUCATION: VERTIGO HYPERTENSION MEDICATIONS FOLLOW UP APPOINTMENTS LAB REVIEW: 06/20/18 05:00 06/20/18 05:00 06/20/18 05:00: Sodium 135.9, Potassium 4.09, Chloride 107.5 H, Carbon Dioxide 23.9, Anion Gap 8.59, BUN 19.3 H, Creatinine 0.80, Estimated GFR (MDRD) 69.00, BUN/Creatinine Ratio 24.12, Glucose 97.3, Calcium 8.01 L, Total Bilirubin 0.33, AST 16.6, ALT 13.1, Alkaline Phosphatase 67.6, Total Protein 5.54 L, Albumin 3.26 L, Globulin 2.28, Albumin/Globulin Ratio 1.42 06/20/18 05:00: WBC 7.77, RBC 3.85 L, Hgb 10.6 L, Hct 33.4 L, MCV 86.8, MCH 27.5 , MCHC 31.7 L, RDW Coeff of Gerald 14.3, Plt Count 193, Immature Gran % (Auto) 0.6 , Neut % (Auto) 49.8, Lymph % (Auto) 36.4, [place] % (Auto) 10.8 H, Eos % (Auto) 2.1, Baso % (Auto) 0.3, Immature Gran # (Auto) 0.1, Neut # (Auto) 3.9, Lymph # ( Auto) 2.8, [place] # (Auto) 0.8, Eos # (Auto) 0.2, Baso # (Auto) 0.0 PLAN: DISCHARGE HOME WITH DAUGHTER 06/20/2018 DIET: REGULAR, ENCOURAGED THREE MEALS WITH SNACKS. ACTIVITY: INCREASE ACTIVITY TOLERATED, USE WALKER FOR SAFETY. NO DRIVING IF TAKING VALIUM OR ANTIVERT DUE TO POTENTIAL FOR DROWSINESS. NO DRIVING IF DIZZY. AN APPOINTMENT HAS BEEN SCHEDULED WITH DR. BETTS ON SundayJune AT [address] UP WITH DR. MCCORMACK/TIBURCIO VALDIVIA APRN ON June AT 10 AM. CODE STATUS: FULL CODE ALERT, ORIENTED TIMES THREE. SPEECH IS CLEAR. MS. LITTLE IS AGREEABLE WITH DISCHARGE HOME TODAY, SHE RESIDES WITH HER DAUGHTER. SHE IS INDEPENDENT WITH ALL ACTIVITIES OF DAILY LIVING. SHE REQUIRES THE ASSISTANCE OF A WALKER FOR SAFE AMBULATION. SHE REPORTS SHE HAS A WALKER AT HOME. HOME HEALTH SERVICES FOR PT/OT WAS OFFERED BUT MS. LITTLE DECLINED SERVICES AT THIS TIME. HER APPETITE IS GOOD WITH MEAL INTAKE OF 75%-100%. HYDRATION STATUS IS GOOD. SKIN IS INTACT. SAGE MCCORMACK MD
--- NOTE | 2018-06-21 11:17 | DS ---
DATE OF SERVICE: 06/20/18 FINAL DIAGNOSIS: 1. VERTIGO 2. HYPERTENSION 3. ACUTE SINUSITIS 4. GERD 5. ANEMIA 6. B 12 DEFICIENCY 7. COPD 8. CVA, 1999 9. CAD WITH STENT APPLICATION 10. DYSLIPIDEMIA 11. PAGET'S DISEASE 12. GENERAL ANXIETY DISORDER 13. DEPRESSION 14. CHOLECYSTECTOMY 15. HYSTERECTOMY 16. COLON RESECTION 17. ESOPHAGEAL REPAIR 18. LVH WITH ENLARGED LEFT ATRIAL CAVITY, LVEF 74% PER ECHO JUNE 2017 LAST VITAL SIGNS: Temperature 97.7, pulse 63, respiratory rate 16, blood pressure 128/61, pulse ox 90. DISCHARGE INSTRUCTIONS: 1. NO DRIVING IF TAKING VALIUM OR ANTIVERT DUE TO POTENTIAL FOR DROWSINESS. NO DRIVING IF DIZZY. 2. AN APPOINTMENT HAS BEEN SCHEDULED WITH DR. BETTS ON SundayJune AT [address] UP WITH DR. MCCORMACK/TIBURCIO VALDIVIA APRN ON June AT 10 AM. 3. THE PATIENT WAS DISCHARGED HOME WITH DAUGHTER. MEDICATIONS AT DISCHARGE: Alendronate Sodium (Fosamax) 70 mg PO WEEKLY [facility] Last Admin: 06/17/18 09:29 Dose: 70 mg Aspirin (Aspirin Chewable) 81 mg PO DAILYWM [facility] Last Admin: 06/20/18 08:26 Dose: 81 mg Carvedilol (Coreg) 12.5 mg PO BIDWM [facility] Last Admin: 06/20/18 08:27 Dose: 12.5 mg Diazepam (Valium) 2 mg 1-2 tablets PO at BEDTIME PRN PRN Reason: dizziness Last Admin: 06/20/18 04:12 Dose: 2 mg Doxycycline Hyclate (Doxycycline Hyclate) 100 mg PO Q12HR [facility] Stop: 06/21/18 20:59 Last Admin: 06/20/18 08:27 Dose: 100 mg Lorazepam (Ativan) 0.5 mg PO BEDTIME [facility] Last Admin: 06/19/18 20:44 Dose: 0.5 mg Losartan Potassium (Cozaar) 100 mg PO DAILY [facility] Last Admin: 06/20/18 08:27 Dose: 100 mg Meclizine HCl (Antivert) 25 mg PO TID PRN PRN Reason: dizziness Last Admin: 06/19/18 16:08 Dose: 25 mg Tramadol HCl (Ultram) 50 mg PO BID PRN PRN Reason: Pain Last Admin: 06/19/18 20:44 Dose: 50 mg NEW PRESCRIPTIONS: COZAAR 100 MG ONE TABLET BY MOUTH DAILY VALIUM 2 MG PO 1-2 TABLETS BY MOUTH AT BEDTIME NEEDED FOR DIZZINESS. DOXYCYCLINE HYCLATE 100 MG ONE CAPSULE BY MOUTH TWICE A DAY FOR THREE MORE DOSES. LAST DOSE 06/21/2018. ANTIVERT 25 MG 1 TABLET BY MOUTH THREE TIMES A DAY NEEDED FOR DIZZINESS. DISCONTINUED MEDICATIONS: LOSARTAN POTASSIUM (COZAAR) 50 MG TWICE A DAY DIET INSTRUCTIONS: REGULAR, ENCOURAGED THREE MEALS WITH SNACKS. ACTIVITY: INCREASE ACTIVITY TOLERATED, USE WALKER FOR SAFETY. SMOKING: SMOKING CESSATION DISCUSSED. PT. IS AGREEABLE TO LIMIT CIGARETTES TO 1-2 A DAY. DISEASE SPECIFIC EDUCATION: VERTIGO HYPERTENSION MEDICATIONS FOLLOW UP APPOINTMENTS HOSPITAL COURSE: 83-year-old white female hospitalized with severe vertigo and severe hypertension that goes along with it. The patient was treated with IV Vasotec. He is now going to be on Cozaar. Vertigo subsided with Antivert and Valium. MRI of the brain was negative for any acute neurovascular event. The patient's carotid scan was also unremarkable. She is up and about, feeling better. The patient has note of psychosomatic underlying problems. In any case she is also a smoker. Counseling for smoking was done. Hemoglobin at time of discharge was 10.6, hematocrit 33, WBC 7,700, normal differential. CONDITION AT TIME OF DISCHARGE: Stable. TIME SPENT: More than 60 minutes. MTDD
--- NOTE | 2018-06-21 11:19 | PN ---
BILLING 06/20/18 ADMISSION DAY LEVEL 5 06/21/18 INTERMEDIATE 06/22/18 FINAL DAY - DISCHARGE ALEXUS
== END 2018-06-20 13:30 | disposition home or self-care (01) | DRG 305 ==
LOC: ED 05:53 → MEDSURG B 09:46
PROVIDERS: ADMIT Internal Medicine; ATTEND Internal Medicine
DX: I16.0 Hypertensive urgency (principal); J01.90 Acute sinusitis, unspecified; J44.9 Chronic obstructive pulmonary disease, unspecified; E53.8 Deficiency of other specified B group vitamins; E78.5 Hyperlipidemia, unspecified; D64.9 Anemia, unspecified; K21.9 Gastro-esophageal reflux disease without esophagitis; I25.10 Atherosclerotic heart disease of native coronary artery without angina pectoris; F41.1 Generalized anxiety disorder; F32.9 Major depressive disorder, single episode, unspecified; F03.90 Unspecified dementia, unspecified severity, without behavioral disturbance, psychotic disturbance, mood disturbance, and anxiety; M88.9 Osteitis deformans of unspecified bone; M81.0 Age-related osteoporosis without current pathological fracture; H83.09 Labyrinthitis, unspecified ear; R11.0 Nausea; Z86.73 Personal history of transient ischemic attack (TIA), and cerebral infarction without residual deficits; Z72.0 Tobacco use; Z91.19 Patient's noncompliance with other medical treatment and regimen
CPT/HCPCS: 36415; 80053; 81001; 82550; 82962; 84484; 85025; 93005; 93010; 96361; 96365; 99285

== ENCOUNTER 2018-07-09 13:45 | Outpatient (POV) | END 2018-07-09 17:00 | LOC: OUTPT 13:45 | PROVIDERS: ATTEND Otolaryngology | DX: R42 Dizziness and giddiness (principal) | CPT/HCPCS: 92557; 92567 ==

== ENCOUNTER 2018-07-29 10:55 | Emergency (ER) ==
[2018-07-29 11:03] VITALS: BP 191/100; TEMP 99.5; BMI 26.0
[2018-07-29] MEDS: DUONEB NEB STA (13:33)
--- NOTE | 2018-07-29 14:41 | CT ---
EXAM: CT chest without contrast HISTORY: Cough COMPARISON: 07/04/2017 TECHNIQUE: CT chest performed without intravenous contrast. Coronal and sagittal reformatted images obtained. FINDINGS: Thoracic inlet unremarkable. Heart mildly enlarged. Coronary calcifications. No pericar dial effusion. Aorta normal in caliber. Mild atherosclerosis. Postsurgical changes in the stomach. Evaluation for lymphadenopathy limited without contrast. No lymphadenopathy identified. Patient s tatus post cholecystectomy. Visualized portion upper abdomen demonstrates no acute abnormality. No acute abnormalities of the bones. Degenerative change in the spine. Mild chronic loss of height sup erior endplate T12 and L1. Central airway patent. No airspace consolidation. No pleural effusion. No pneumothorax. Scattered subsegmental atelectasis and/or scarring. Bilateral lower airway thick ening. New ground-glass nodule right lower lobe image 40 measuring 1.0 cm. Granulomas calcification right lung. IMPRESSION: 1. Bilateral lower airway thickening, suggesting small airways infection/inflammation. No airspace consolidation. 2. Scattered subsegmental atelectasis and/or scarring. 3. New 1 cm ground-glass nodule right lower lobe. Recommend CT chest follow-up in 3 months. 4. Cardiomegaly. 5. Coronary calcifications.
--- NOTE | 2018-07-29 16:01 | CT ---
EXAM: CT abdomen pelvis without contra HISTORY: Abnormal LFTs COMPARISON: None TECHNIQUE: CT abdomen pelvis performed without intravenous contrast. Coronal and sagittal reformatt ed images obtained FINDINGS: Bilateral lower airway thickening described on CT chest same day. No free air. No acute abnormalities of the bones. Increased trabeculation and cortical thinning of the right nagi pelvis, likely relates to changes of Paget's disease. The mild chronic loss of height T12, L1, L2 and minima l chronic loss of height L2. Evaluation organ parenchyma limited without contrast. Liver unremarkab le. Patient status post cholecystectomy. Pancreas unremarkable. Spleen unremarkable. Adrenals unr emarkable. No hydronephrosis or nephrolithiasis. No calculi visualized in normal course of the uret ers. Bladder unremarkable. Patient status post hysterectomy. Postsurgical changes in the stomach. No dilated loops small bowel. Appendix not visualized. Colonic diverticulosis. Aorta normal in ca liber. Moderate to severe atherosclerosis. No lymphadenopathy or ascites. IMPRESSION: 1. No acute abnormality identified in the abdomen pelvis. 2. Colonic diverticulosis. 3. Postsurgical changes in the stomach. Status post hysterectomy and cholecystectomy. 4. Atherosclerosis. 5. 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
--- NOTE | 2018-07-29 16:48 | ED.PDOC ---
General ED Provider: Dr. ERNA RAPP Chief Complaint: Respiratory Complaint Stated Complaint: COUGH Time Seen by Physician: 11:00 Mode of Arrival: Walk-In Information Source: Patient Exam Limitations: No limitations Primary Care Provider: SAGE MCCORMACK Nursing and Triage Documentation Reviewed and Agree: Yes Does patient meet sepsis criteria?: No System Inflammatory Response Syndrome: Not Applicable Sepsis Protocol: For patient's 13 years and over: Temp is 96.8 and below OR 101 and greater Pulse >90 BPM Resp >20/minute Acutely Altered Mental Status Are patient's symptoms suggestive of a new infection, such as: -Pneumonia -Skin, Soft Tissue -Endocarditis -UTI -Bone, Joint Infection -Implantable Device -Acute Abdominal Infection -Wound Infection -Meningitis -Blood Stream Catheter Infection -Unknown Respiratory Complaint Exam - Respiratory Complaint/Exam Onset/Duration: 1 WEEK Symptoms Are: Resolved Timing: Intermittent Initial Severity: Mild Current Severity: Mild Location: Nose, Throat, Chest Character: Reports: Non-productive cough, Dry cough Aggravating: Reports: None Alleviating: Reports: Spontaneous resolution Associated Signs and Symptoms: Reports: URI, Nasal congestion. Denies: Rapid breathing, Dyspnea, Fever, Chills, Chest pain, Pleuritic chest pain, Wheezing, Hemoptysis, Dizziness, Calf pain, Calf swelling, Edema, Hoarseness, Sinus discomfort, Vomiting, Sore throat, Weight loss, Decreased oral intake, Increased thirst, Increased appetite, Increased urination Related History: Reports: Similar episode History of Healthcare-Acquired Pneumonia: No Related Surgical History: Reports: None Pulmonary Embolism Risk Factors: None Cardiac Risk Factors: Reports: Hypertension Pseudomonas Risk Factors: Reports: None Tuberculosis Risk Factors: Reports: None Status Asthmaticus Risk Factors: Reports: None Home Oxygen Use: No Recent Stress Test: No Recent Echo/LV Function: No Current Antibiotic Use: No Current Asthma Medication Use: No Respiratory Distress: None Inadequate Respiratory Effort: No Dysphagia Present: No Stridor Present: No JVD Present: No Accessory Muscle Use: No Retractions: Not Present Diminished Breath Sounds: No Sinus Tenderness: None Grunting Respirations: No Kussmaul Respirations: No Differential Diagnoses: Pneumonia, Bronchitis Non-Traumatic Chest Pain Syncope: EKG Performed Review of Systems - Review Of Systems Constitutional: Reports: No symptoms Eyes: Reports: No symptoms Ears, Nose, Mouth, Throat: Reports: No symptoms Respiratory: Reports: Cough Cardiac: Reports: No symptoms GI: Reports: No symptoms : Reports: No symptoms Musculoskeletal: Reports: No symptoms Skin: Reports: No symptoms Neurological: Reports: No symptoms Endocrine: Reports: No symptoms Hematologic/Lymphatic: Reports: No symptoms All Other Systems: Reviewed and Negative Past Medical History - Past Medical History Previously Healthy: Yes Endocrine: Reports: Dyslipidemia Cardiovascular: Reports: Hypertension Respiratory: Reports: None Hematological: Reports: None Gastrointestinal: Reports: None Genitourinary: Reports: None Neuro/Psych: Reports: None Musculoskeletal: Reports: None Cancer: Reports: None Last Menstrual Period: na - Surgical History General Surgical History: Reports: Hysterectomy, Cholecystectomy - Family History Family History: Reports: Unknown - Social History Smoking Status: Current some day smoker, Light tobacco smoker Hx Substance Use: No Alcohol Screening: None - Immunizations Tetanus Shot up to Date: Yes Physical Exam - Physical Exam Appearance: Well-appearing, No pain distress, Well-nourished Eyes: MEGHAN, EOMI, Conjunctiva clear ENT: Ears normal, Nose normal, Oropharynx normal Respiratory: Rhonchi Cardiovascular: RRR, Pulses normal, No rub, No murmur GI/: Soft, Nontender, No masses, Bowel sounds normal, No Organomegaly Musculoskeletal: Normal strength, ROM intact, No edema, No calf tenderness Skin: Warm, Dry, Normal color Neurological: Sensation intact, Motor intact, Reflexes intact, Cranial nerves intact, Alert, Oriented Psychiatric: Affect appropriate, Mood appropriate Interpretation - Radiology Interpretation Radiology Interpretation By: Radiologist Radiology Results: No acute changes Exam Interpreted: CT Scan Physician Notification - Case Discussed Physician Notified: PMD Time of Notification: 16:48 (MAY GO HOME ) Critical Care Note - Critical Care Note Total Time (mins): 0 Course - Course Hematology/Chemistry: 07/29/18 13:40 07/29/18 13:40 Orders, Labs, Meds: Lab Review 07/29/18 07/29/18 07/29/18 13:23 13:40 13:40 WBC 4.45 L RBC 3.74 L Hgb 10.6 L Hct 32.0 L MCV 85.6 MCH 28.3 MCHC 33.1 RDW Coeff of Gerald 13.8 Plt Count 180 Immature Gran % (Auto) 0.2 Neut % (Auto) 47.2 Lymph % (Auto) 35.3 [place] % (Auto) 16.2 H Eos % (Auto) 0.4 Baso % (Auto) 0.7 Immature Gran # (Auto) 0.0 Neut # (Auto) 2.1 Lymph # (Auto) 1.6 [place] # (Auto) 0.7 Eos # (Auto) 0.0 Baso # (Auto) 0.0 PT INR APTT Puncture Site Rr O2 Saturation 96.0 ABG pH 7.388 ABG pCO2 37.5 ABG pO2 83.0 L ABG HCO3 22.6 ABG Total CO2 24 ABG Base Excess -2 Cosme Test + FiO2 % 21.0 Sodium 133.7 L Potassium 4.11 Chloride 100.8 Carbon Dioxide 24.2 Anion Gap 12.81 BUN 12.3 Creatinine 0.69 Estimated GFR (MDRD) 81.00 BUN/Creatinine Ratio 17.82 Glucose 97.3 Lactic Acid Calcium 8.80 Total Bilirubin 0.78 AST 408.1 H ALT 498.2 H Alkaline Phosphatase 157.0 H Total Creatine Kinase 38.8 Troponin I 0.012 Total Protein 6.64 Albumin 4.20 Globulin 2.44 Albumin/Globulin Ratio 1.72 Procalcitonin 07/29/18 07/29/18 07/29/18 13:40 13:40 13:40 WBC RBC Hgb Hct MCV MCH MCHC RDW Coeff of Gerald Plt Count Immature Gran % (Auto) Neut % (Auto) Lymph % (Auto) [place] % (Auto) Eos % (Auto) Baso % (Auto) Immature Gran # (Auto) Neut # (Auto) Lymph # (Auto) [place] # (Auto) Eos # (Auto) Baso # (Auto) PT 9.9 INR 0.99 APTT 24.3 Puncture Site O2 Saturation ABG pH ABG pCO2 ABG pO2 ABG HCO3 ABG Total CO2 ABG Base Excess Cosme Test FiO2 % Sodium Potassium Chloride Carbon Dioxide Anion Gap BUN Creatinine Estimated GFR (MDRD) BUN/Creatinine Ratio Glucose Lactic Acid 0.71 Calcium Total Bilirubin AST ALT Alkaline Phosphatase Total Creatine Kinase Troponin I Total Protein Albumin Globulin Albumin/Globulin Ratio Procalcitonin 0.05 Orders Category Date Time Status ABG DRAW REQUEST Stat CARDIO 07/29/18 13:23 Completed EKG-(ED ONLY) Stat CARDIO 07/29/18 13:22 Completed NEBULIZER TREATMENT Stat CARDIO 07/29/18 13:22 Completed NPO REMINDER: IMAGING ONCE CARE 07/29/18 15:06 Active ABG Stat LAB 07/29/18 13:23 Completed CBC W/ AUTO DIFF Stat LAB 07/29/18 13:40 Completed COMPREHENSIVE METABOLIC PANEL Stat LAB 07/29/18 13:40 Completed CREATINE KINASE Stat LAB 07/29/18 13:40 Completed LACTIC ACID Stat LAB 07/29/18 13:40 Completed PARTIAL THROMBOPLASTIN TIME Stat LAB 07/29/18 13:40 Completed PROCALCITONIN Stat LAB 07/29/18 13:40 Completed PT WITH INR Stat LAB 07/29/18 13:40 Completed TROPONIN I Stat LAB 07/29/18 13:40 Completed Ipratropium/Albuterol Neb [Duoneb] MEDS 07/29/18 13:22 Discontinued 1 vial NEB ONCE STA CT ABDOMEN/PELVIS WO CONTRAST Stat RADS 07/29/18 15:[address] CHEST W/O CONTRAST Stat RADS 07/29/18 13:22 Completed Medications Discontinued Medications Generic Name Dose Route Start Last Admin Trade Name Freq PRN Reason Stop Dose Admin Albuterol/Ipratropium 1 vial 07/29/18 13:22 07/29/18 13:33 Duoneb NEB 07/29/18 13:23 1 vial ONCE STA Administration Vital Signs: Temp Pulse Resp BP Pulse Ox 07/29/18 10:58 99.5 F 77 22 191/100 H 95 Departure - Departure Time of Disposition: 16:48 Disposition: HOME SELF-CARE Discharge Problem: Cough Instructions: Chronic Cough (ED) Condition: Good Pt referred to PMD for follow-up: Yes IPMP verified?: No Additional Instructions: Please call your Family Physician as soon as possible to schedule a follow-up appointment. Allergies/Adverse Reactions: Allergies clarithromycin [From Biaxin] Adverse Reaction (Verified 07/29/18 13:13) Penicillins Adverse Reaction (Verified 07/29/18 13:13) Sulfa (Sulfonamide Antibiotics) Adverse Reaction (Verified 07/29/18 13:13) Home Medications: Ambulatory Orders Lorazepam [Ativan] 0.5 mg PO BEDTIME 07/11/15 Alendronate Sodium [Fosamax] 70 mg PO WEEKLY 07/02/17 Aspirin [Marichuy Chewable Aspirin] 81 mg PO DAILY 07/02/17 Carvedilol [Coreg] 12.5 mg PO BID #60 tablet 07/11/17 Tramadol HCl 50 mg PO BID PRN #30 tablet 07/11/17 Diazepam [Valium] 1 - 2 mg PO BEDTIME PRN #15 tab 06/20/18 Losartan Potassium [Cozaar] 100 mg PO DAILY #30 tab 06/20/18 Meclizine HCl [Antivert] 25 mg PO TID PRN #90 tablet 06/20/18
== END 2018-07-29 17:05 | disposition home or self-care (01) ==
LOC: ED 10:55
DX: R05 Cough (principal); I10 Essential (primary) hypertension; E78.5 Hyperlipidemia, unspecified; F17.210 Nicotine dependence, cigarettes, uncomplicated; Z79.899 Other long term (current) drug therapy; R91.1 Solitary pulmonary nodule
CPT/HCPCS: 36415; 80053; 82550; 82803; 83605; 84145; 84484; 85025; 85610; 85730; 93005; 93010; 94640; 99283

== ENCOUNTER 2018-08-02 12:26 | Inpatient (IN) ==
[2018-08-02] MEDS ORDERED: ATROPINE SULFATE PFS IVP PRN (13:00)
[2018-08-02] MEDS ORDERED: VISTARIL INJ IM PRN (13:00)
[2018-08-02] MEDS ORDERED: TYLENOL PO PRN (13:00)
[2018-08-02] MEDS ORDERED: NITROSTAT SL PRN (13:00)
[2018-08-02] MEDS ORDERED: ANTIVERT PO PRN ×2 (13:22→13:53)
[2018-08-02] MEDS ORDERED: VALIUM PO PRN (13:22)
[2018-08-02] MEDS ORDERED: ATIVAN PO PRN (13:22)
[2018-08-02] MEDS: XOPENEX 1.25 MG NEB SCH ×2 (13:27→21:30)
[2018-08-02 13:50] VITALS: BMI 25.2
--- NOTE | 2018-08-02 14:39 | DI ---
EXAM: Chest two views HISTORY: Acute pneumonitis COMPARISON: 07/02/2017 TECHNIQUE: Two views of the chest were performed FINDINGS: The lungs are clear. There is no pleural effusion or pneumothorax. The heart is normal i n size. The mediastinal contour is unchanged, noting atherosclerosis. There are no acute abnormalit ies of the bones. IMPRESSION: No acute cardiopulmonary process.
[2018-08-02] MEDS: SODIUM CHLORIDE 1,000 ML IV SCH (15:02)
[2018-08-02] MEDS: SOLU-CORTEF 250 MG IVP SCH ×2 (15:02→20:25)
[2018-08-02] MEDS: LEVAQUIN 250 MG in PREMIX 50 ML D5W 1 BAG IV SCH (15:04)
--- NOTE | 2018-08-02 15:16 | CT ---
EXAM: CT abdomen pelvis performed with and without contrast HISTORY: Left upper quadrant pain COMPARISON: 07/29/2018 TECHNIQUE: CT abdomen pelvis performed with and without intravenous contrast. Coronal and sagittal reformatted images obtained. FINDINGS: Lung bases clear. No free air. No acute abnormalities of the bones. 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 Mild chronic loss of height T12, L1, L3 and minimal chronic loss of height L2. Heart normal in size . Coronary calcifications. Liver unremarkable. Patient status post cholecystectomy. Pancreas unre markable. Spleen unremarkable. Adrenals unremarkable. Kidneys unremarkable. Bladder unremarkable. Patient status post hysterectomy. Aorta normal in caliber. Moderate to severe atherosclerosis. N o lymphadenopathy or ascites. Postsurgical changes in the stomach. Scattered fluid-filled loops smal l bowel with mild gaseous distension of several loops of small bowel and no transition point identifi ed. Findings may relate to mild enteritis or ileus. Mild diverticulosis terminal ileum. Colonic di verticulosis. IMPRESSION: 1. Possible mild enteritis or ileus. Recommend clinical correlation 2. Postsurgical changes in the stomach. 3. Colonic diverticulosis. Mild ileal diverticulosis. 4. Atherosclerosis. 5. 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
[2018-08-02] MEDS: COREG PO SCH (17:05)
[2018-08-02] MEDS: COZAAR PO SCH (20:24)
[2018-08-02] MEDS: ULTRAM PO PRN (20:37)
[2018-08-02] MEDS ORDERED: COZAAR PO SCH (21:00)
[2018-08-03] MEDS: ZOFRAN 4 MG/2 ML IVP PRN (04:01)
[2018-08-03] MEDS: XOPENEX 1.25 MG NEB SCH ×3 (05:02→19:05)
[2018-08-03] MEDS: SODIUM CHLORIDE 1,000 ML IV SCH ×2 (05:16→20:27)
[2018-08-03] MEDS: SOLU-CORTEF 250 MG IVP SCH ×3 (05:41→20:28)
[2018-08-03] MEDS: ULTRAM PO PRN (07:54)
[2018-08-03] MEDS ORDERED: ASPIRIN EC PO SCH (08:00)
[2018-08-03] MEDS ORDERED: NON-FORMULARY MEDICATION (Escitalopram Oxalate [Lexapro] 20 MG) PO SCH (09:00)
[2018-08-03] MEDS: NORVASC PO SCH (09:14)
[2018-08-03] MEDS: COZAAR PO SCH ×2 (09:14→20:31)
[2018-08-03] MEDS: ASPIRIN CHEWABLE PO SCH (09:14)
[2018-08-03] MEDS: COREG PO SCH ×2 (09:14→17:26)
[2018-08-03] MEDS: LEVAQUIN 250 MG in PREMIX 50 ML D5W 1 BAG IV SCH (09:15)
[2018-08-03] MEDS: LEXAPRO PO SCH (09:15)
[2018-08-03] MEDS ORDERED: DILAUDID 1 MG/ML SYRINGE IVP STA (11:13)
[2018-08-03] MEDS: TORADOL IVP PRN ×2 (11:32→20:21)
[2018-08-04] MEDS: XOPENEX 1.25 MG NEB SCH ×3 (05:19→21:36)
[2018-08-04] MEDS: SOLU-CORTEF 250 MG IVP SCH (05:19)
[2018-08-04] MEDS: LEXAPRO PO SCH (08:08)
[2018-08-04] MEDS: NORVASC PO SCH (08:09)
[2018-08-04] MEDS: COREG PO SCH ×2 (08:09→17:29)
[2018-08-04] MEDS: LEVAQUIN 250 MG in PREMIX 50 ML D5W 1 BAG IV SCH (08:09)
[2018-08-04] MEDS: ASPIRIN CHEWABLE PO SCH (08:09)
[2018-08-04] MEDS: COZAAR PO SCH ×2 (08:09→20:32)
[2018-08-04] MEDS: TORADOL IVP PRN ×2 (08:09→20:29)
[2018-08-04] MEDS ORDERED: NUBAIN IVP STA (11:40)
[2018-08-04] MEDS: PHENERGAN WITH CODEINE 6.25/10 MG/5 ML PO PRN ×2 (11:49→20:29)
[2018-08-04] MEDS: PREDNISONE PO SCH (11:49)
[2018-08-04] MEDS: SODIUM CHLORIDE 1,000 ML IV SCH (19:16)
[2018-08-05] MEDS: PHENERGAN WITH CODEINE 6.25/10 MG/5 ML PO PRN (05:01)
[2018-08-05] MEDS: XOPENEX 1.25 MG NEB SCH ×3 (05:46→20:40)
[2018-08-05] MEDS ORDERED: FOSAMAX PO SCH (06:30)
[2018-08-05] MEDS: PREDNISONE PO SCH ×3 (08:00→17:05)
[2018-08-05] MEDS ORDERED: PULMICORT 0.5 MG/2 ML NEB STA (08:13)
[2018-08-05] MEDS: COZAAR PO SCH ×2 (08:51→20:06)
[2018-08-05] MEDS: LEVAQUIN 250 MG in PREMIX 50 ML D5W 1 BAG IV SCH (08:51)
[2018-08-05] MEDS: ASPIRIN CHEWABLE PO SCH (08:51)
[2018-08-05] MEDS: NORVASC PO SCH (08:51)
[2018-08-05] MEDS: COREG PO SCH ×2 (08:52→17:05)
[2018-08-05] MEDS: LEXAPRO PO SCH (08:52)
--- NOTE | 2018-08-05 08:57 | PCM.PROG ---
Attending Provider: ATTENDING PROVIDER: Dr. SAGE MCCORMACK This patient is seen with Cheri Zaragoza, Nurse Practitioner. DATE OF SERVICE: 08/05/18 SUBJECTIVE: This 83 year old WHITE/ F was hospitalized 08/02/18. The patient is lying in bed resting comfortably. Cough is still very productive. She is complaining of left-sided pain with coughing and is not eating much. REVIEW OF SYSTEMS: CONSTITUTIONAL: Positive for weakness. No night sweats. No fatigue, malaise, lethargy. No fever or chills. HEENT: Eyes: No visual changes. No eye pain. No eye discharge. ENT: No runny nose. No epistaxis. No sinus pain. No odynophagia. No congestion. RESPIRATORY: Cough and congestion. No hemoptysis. No shortness of breath. CARDIOVASCULAR: No angina symptoms. No CHF symptoms. No atypical chest pain for CAD. No palpitations. No orthopnea.. GASTROINTESTINAL: No abdominal pain. No nausea or vomiting. No diarrhea or constipation. No hematemesis. No hematochezia. GENITOURINARY: No urgency. No frequency. No dysuria. No hematuria. No obstructive symptoms. No discharge. No pain. No significant abnormal bleeding. MUSCULOSKELETAL: No musculoskeletal pain; no joint swelling. NEUROLOGICAL: Awake, alert, oriented to time, place and person. No headache. No neck pain. No syncope. No seizures. No dizziness. PSYCHIATRIC: Not anxious. No depression. No suicidal thoughts. No homicidal thoughts. SKIN: No rash. No lesions. No wounds. ENDOCRINE: No unexplained weight loss. No weight gain. HEMATOLOGIC/LYMPHATIC: No anemia. No purpura. No petechiae. No prolonged or excessive bleeding. No palpable lymph nodes. PHYSICAL EXAMINATION: GENERAL: The patient is awake, alert and oriented, lying in bed in no distress. VITAL SIGNS: Temperature 97.9 F, Pulse 63, Respiratory Rate 18, BP 138/69, Pulse Ox 94% HEENT: Head normocephalic, atraumatic. Eyes: Extraocular muscles are intact. Pupils are equal, round and reactive to light and accommodation. Ears: No lesions. Nose appeared normal. Throat: No exudate or erythema. NECK: Supple. No JVD, no carotid bruit. No lymphadenopathy or thyromegaly. LUNGS: Diminished breath sounds with bilateral rhonchi and expiratory wheezing. Percussion note normal. Chest symmetrical. HEART: S1, S2, no S3. No murmurs. No cyanosis or clubbing. No ascites. Pulses: Dorsalis pedis and posterior tibial pulses +1 to +2 both sides. ABDOMEN: Soft. Non-tender. Bowel sounds active. No CVA tenderness. No mass felt. EXTREMITIES: No edema. Full range of motion of all extremities, equal. NEUROLOGIC: No focal deficit. Cranial nerves II through XII are grossly intact. No headache, no double vision or headache. SKIN: Not dry. Intact. Turgor-normal. LYMPHATIC: No palpable lymph nodes/no lymphedema. MUSCULOSKELETAL: Normal joints with no swelling. Muscle tone is normal. LAB REVIEW: 08/05/18 04:44 08/05/18 04:44 08/05/18 04:44: Sodium 129.6 L, Potassium 4.32, Chloride 98.6, Carbon Dioxide 22.6, Anion Gap 12.72, BUN 31.1 H, Creatinine 0.91, Estimated GFR (MDRD) 59.00, BUN/Creatinine Ratio 34.17, Glucose 149.0 H, Calcium 8.26 L, Total Bilirubin 0.42, AST 22.4, ALT 47.0 H, Alkaline Phosphatase 89.3, Total Protein 6.00 L, Albumin 3.55, Globulin 2.45, Albumin/Globulin Ratio 1.44 08/05/18 04:44: WBC 9.01, RBC 3.59 L, Hgb 9.8 L, Hct 30.1 L, MCV 83.8, MCH 27.3 , MCHC 32.6, RDW Coeff of Gerald 13.4, Plt Count 217, Immature Gran % (Auto) 0.4, Neut % (Auto) 79.8, Lymph % (Auto) 12.3, [place] % (Auto) 7.0, Eos % (Auto) 0.4, Baso % (Auto) 0.1, Immature Gran # (Auto) 0.0, Neut # (Auto) 7.2 H, Lymph # ( Auto) 1.1, [place] # (Auto) 0.6, Eos # (Auto) 0.0, Baso # (Auto) 0.0 ASSESSMENT: 1. Acute pneumonitis. 2. Left-sided pleuritic pain. 3. Anemia. 4. Dehydration - improving. PLAN: 1. Increase Prednisone 20 mg b.i.d 2. Start Pulmicort 0.5 mg b.i.d. 3. Repeat chest x-ray. Plan and coordination of the patient's care discussed in the presence of Campaign Management Specialist and nurse. CONDITION: Stable SCRIBED BY: NEIL LITTLE Straight Ruling Machine Operator scribed while in presence of service performed by Dr. Mccormack/Cheri Zaragoza APRN on 08/05/18 ([id number])
--- NOTE | 2018-08-05 09:20 | CT ---
EXAM: CT of the chest with contrast History: Cough and congestion. Comparison: Chest radiograph 08/02/2018, chest CT 07/29/2018 Technique: Multiplanar CT images through the thorax were obtained following administration of IV con trast Findings: Heart remains enlarged. Coronary calcifications. Great vessels are unremarkable. No per icardial effusion. No axillary lymphadenopathy. No pathologically enlarged mediastinal or hilar lym ph nodes. No consolidated pneumonia. No pleural fluid and no pneumothorax. No pulmonary edema. Th e previously described right lower lobe ground-glass nodule has resolved. No suspicious lung masses or lung nodules. Postsurgical changes are again seen within the upper abdomen. The visualized osseous structures are unchanged with no acute osseous abnormalities identified. Osteopenia. Impression: 1. No acute intrathoracic process. 2. Cardiomegaly. 3. Coronary artery disease. 4. Resolved right lower lobe ground-glass lung nodule.
--- NOTE | 2018-08-05 10:00 | PN ---
DATE OF SERVICE: 08/02/18 - ADMIT NOTE SUBJECTIVE: 83-year-old white female hospitalized with acute pneumonitis, bronchitis, dehydration, elevated liver function. The patient's condition seems to be improving some but she complains of having generalized aches and pains consistent with flu-type of symptoms. She sounds congested as yesterday but a little bit less. Her appetite has improved some. REVIEW OF SYSTEMS: CONSTITUTIONAL: No night sweats. No fatigue, malaise, lethargy. No fever or chills. HEENT: Eyes: No visual changes. No eye pain. No eye discharge. ENT: No runny nose. No epistaxis. No sinus pain. No sore throat. No odynophagia. No congestion. RESPIRATORY: Cough and congestion with generalized aches and pains rated as 4 to 5 on a scale of 1 to 10. The patient is on Tramadol. No hemoptysis. No shortness of breath. CARDIOVASCULAR: No angina symptoms. No CHF symptoms. No atypical chest pain for CAD. No palpitations. No PND. No orthopnea. No exertional chest discomfort but has chest tightness with cough. GASTROINTESTINAL: No abdominal pain. No nausea or vomiting. No diarrhea or constipation. No hematemesis. No hematochezia. GENITOURINARY: No urgency. No frequency. No dysuria. No hematuria. No obstructive symptoms. No discharge. No pain. No significant abnormal bleeding. MUSCULOSKELETAL: No musculoskeletal pain; no joint swelling. NEUROLOGICAL: No headache. No neck pain. No syncope. No seizures. No dizziness. PSYCHIATRIC: Not anxious. No depression. No suicidal thoughts. No homicidal thoughts. SKIN: No rash. No lesions. No wounds. ENDOCRINE: No unexplained weight loss. No weight gain. HEMATOLOGIC/LYMPHATIC: No anemia. No purpura. No petechiae. No prolonged or excessive bleeding. No palpable lymph nodes. PHYSICAL EXAMINATION: VITAL SIGNS: Temperature 97.6, pulse 60, respiratory rate 16, blood pressure 140 /70, pulse ox 92%. HEENT: Head normocephalic, atraumatic. Eyes: Extraocular muscles are intact. Pupils are equal, round and reactive to light and accommodation. Ears: No lesions. Nose appeared normal. Throat: No exudate or erythema. NECK: Supple. No JVD, no carotid bruit. No lymphadenopathy or thyromegaly. LUNGS: Decreased breath sounds but clear to auscultation. Percussion note normal. Chest symmetrical. HEART: S1, S2, no S3. No murmurs. No cyanosis or clubbing. No ascites. Pulses: Dorsalis pedis and posterior tibial pulses +1 to +2 bilaterally. ABDOMEN: Soft. Nontender. Bowel sounds active. No CVA tenderness. No mass felt. EXTREMITIES: No edema. Full range of motion of all extremities, equal. NEUROLOGIC: No focal deficit. Cranial nerves II through XII are grossly intact. No headache, no double vision or headache. SKIN: Not dry. Intact. Turgor - normal. LYMPHATIC: No palpable lymph nodes/no lymphedema. MUSCULOSKELETAL: Normal joints with no swelling. Muscle tone is normal. ASSESSMENT: 1. Acute pneumonitis, bronchitis seems to be resolving. 2. Coronary artery disease. 3. Anemia. 4. Chronic lung disease with history of smoking. 5. Noncompliance. PLAN: 1. Continue steroids, nebs, IV antibiotics. 2. Will give IV Toradol 30 mg q.8 for aches, pains and also 1 gm IV Dilaudid just one dose. 3. Counseling for smoking done. CONDITION: Stable. TIME SPENT: More than 30 minutes. Plan and coordination of the patient's care discussed in the presence of nurse. ALEXUS
[2018-08-05] MEDS: ULTRAM PO PRN (13:15)
[2018-08-05] MEDS: PULMICORT 0.5 MG/2 ML NEB SCH ×2 (13:30→20:40)
[2018-08-06] MEDS: PHENERGAN WITH CODEINE 6.25/10 MG/5 ML PO PRN ×2 (00:33→22:03)
[2018-08-06] MEDS: PULMICORT 0.5 MG/2 ML NEB SCH ×2 (04:55→20:15)
[2018-08-06] MEDS: XOPENEX 1.25 MG NEB SCH ×3 (04:55→20:15)
[2018-08-06] MEDS: COREG PO SCH ×2 (08:50→16:57)
[2018-08-06] MEDS: COZAAR PO SCH ×2 (08:50→20:04)
[2018-08-06] MEDS: ASPIRIN CHEWABLE PO SCH (08:50)
[2018-08-06] MEDS: NORVASC PO SCH (08:50)
[2018-08-06] MEDS: LEVAQUIN PO SCH (08:51)
[2018-08-06] MEDS: LEXAPRO PO SCH (08:51)
[2018-08-06] MEDS: PREDNISONE PO SCH ×2 (08:51→16:58)
--- NOTE | 2018-08-06 09:07 | PCM.PROG ---
Attending Provider: ATTENDING PROVIDER: Dr. SAGE MCCORMACK DATE OF SERVICE: 08/06/18 SUBJECTIVE: This 83 year old WHITE/ F was hospitalized 08/02/18 with acute pneumonia, viral. The patient was dehydrated with elevated liver profile which has improved but still coughing. REVIEW OF SYSTEMS: CONSTITUTIONAL: No night sweats. No fatigue, malaise, lethargy. No fever or chills. HEENT: Eyes: No visual changes. No eye pain. No eye discharge. ENT: No runny nose. No epistaxis. No sinus pain. No odynophagia. No congestion. RESPIRATORY: Cough and congestion but less than before. No hemoptysis. No shortness of breath. CARDIOVASCULAR: No angina symptoms. No CHF symptoms. No atypical chest pain for CAD. No palpitations. No orthopnea.. GASTROINTESTINAL: No abdominal pain. No nausea or vomiting. No diarrhea or constipation. No hematemesis. No hematochezia. Improved appetite. GENITOURINARY: No urgency. No frequency. No dysuria. No hematuria. No obstructive symptoms. No discharge. No pain. No significant abnormal bleeding. MUSCULOSKELETAL: No musculoskeletal pain; no joint swelling. NEUROLOGICAL: Awake, alert, oriented to time, place and person. No headache. No neck pain. No syncope. No seizures. No dizziness. PSYCHIATRIC: Not anxious. No depression. No suicidal thoughts. No homicidal thoughts. SKIN: No rash. No lesions. No wounds. ENDOCRINE: No unexplained weight loss. No weight gain. HEMATOLOGIC/LYMPHATIC: No anemia. No purpura. No petechiae. No prolonged or excessive bleeding. No palpable lymph nodes. PHYSICAL EXAMINATION: GENERAL: The patient is awake, alert and oriented, lying in bed in no distress. VITAL SIGNS: Temperature 97.5 F, Pulse 56, Respiratory Rate 18, BP 138/67, Pulse Ox 94% HEENT: Head normocephalic, atraumatic. Eyes: Extraocular muscles are intact. Pupils are equal, round and reactive to light and accommodation. Ears: No lesions. Nose appeared normal. Throat: No exudate or erythema. NECK: Supple. No JVD, no carotid bruit. No lymphadenopathy or thyromegaly. LUNGS: Decreased breath sounds. Mild Wheezing. Clear to auscultation. Percussion note normal. Chest symmetrical. HEART: S1, S2, no S3. No murmurs. No cyanosis or clubbing. No ascites. Pulses: Dorsalis pedis and posterior tibial pulses +1 to +2 both sides. ABDOMEN: Soft. Non-tender. Bowel sounds active. No CVA tenderness. No mass felt. EXTREMITIES: No edema. Full range of motion of all extremities, equal. NEUROLOGIC: No focal deficit. Cranial nerves II through XII are grossly intact. No headache, no double vision or headache. SKIN: Warm and dry. Intact. Turgor-normal. LYMPHATIC: No palpable lymph nodes/no lymphedema. MUSCULOSKELETAL: Normal joints with no swelling. Muscle tone is normal. LAB REVIEW: 08/06/18 04:05 08/06/18 04:05 08/06/18 04:05: Sodium 130.4 L, Potassium 4.37, Chloride 99.7, Carbon Dioxide 22.9, Anion Gap 12.17, BUN 24.2 H, Creatinine 0.68, Estimated GFR (MDRD) 83.00, BUN/Creatinine Ratio 35.58, Glucose 153.9 H, Calcium 8.24 L, Total Bilirubin 0.46, AST 18.5, ALT 43.6 H, Alkaline Phosphatase 86.3, Total Protein 5.85 L, Albumin 3.43 L, Globulin 2.42, Albumin/Globulin Ratio 1.41 08/06/18 04:05: WBC 6.69, RBC 3.55 L, Hgb 9.8 L, Hct 29.8 L, MCV 83.9, MCH 27.6 , MCHC 32.9, RDW Coeff of Gerald 13.6, Plt Count 225, Immature Gran % (Auto) 0.4, Neut % (Auto) 79.4, Lymph % (Auto) 14.3, [place] % (Auto) 5.7, Eos % (Auto) 0.1, Baso % (Auto) 0.1, Immature Gran # (Auto) 0.0, Neut # (Auto) 5.3, Lymph # (Auto ) 1.0, [place] # (Auto) 0.4, Eos # (Auto) 0.0, Baso # (Auto) 0.0 ASSESSMENT: Please see below. 1. Acute pneumonitis/bronchitis; CT scan of the chest did not show any spot that was seen on chest x-ray. 2. Counseling for smoking done PLAN: 1. Continue PO Prednisone, PO Levaquin and NEBS 2. UP and about Plan and coordination of the patient's care discussed in the presence of Public Health Doctor and nurse. CONDITION: Stable SCRIBED BY: Ridge ORR scribed while in presence of service performed by Dr. SAGE MCCORMACK on 08/06/18 ([id number])
--- NOTE | 2018-08-06 10:39 | HP ---
DATE OF SERVICE: 08/02/18 HISTORY OF PRESENT ILLNESS: 83-year-old white female, who presented for ER followup of cough and congestion. She was given cough medicine and prednisone. Weight loss of 3 lbs. Left upper quadrant pain, cough, congestion, nausea. No vomiting. No diarrhea. PAST MEDICAL HISTORY: Paget's disease Chronic anemia Dyslipidemia Dementia Anxiety OP Chronic lung disease Hypertension Depression Dyslipidemia Vitamin B12 deficiency CAD PAST SURGICAL HISTORY: Left carotid endarterectomy, 2003 Stents 2003 T & A Gallbladder Hysterectomy Stomach blockage Appendectomy REVIEW OF SYSTEMS: CONSTITUTIONAL: Fatigue. No fever. HEENT: No sinus drainage, no sore throat. RESPIRATORY: Cough. no congestion. CARDIOVASCULAR: Positive for shortness of breath. No atypical chest pain for coronary artery disease. No angina, CHF symptoms, palpitations. GASTROINTESTINAL: Positive for nausea and abdominal pain. No melena. No GERD. GENITOURINARY: Decreased urine output. ICER MACHINE: No blackout, no dizziness, no headache, no double vision. MUSCULOSKELETAL: Positive for osteoarthritic pain. ENDOCRINE: Weight loss of 3 lbs. . SKIN: Not dry, no rash. PSYCHIATRIC: The patient is anxious. No depression, no suicidal thoughts, no homicidal thoughts. SOCIAL HISTORY: The patient is . She has 4 boys and three girls. The patient is a smoker ; one pack per day.. No alcohol use. FAMILY HISTORY: Father . Mother of cancer. Two brothers. Two sisters. MEDICATIONS: Norvasc 5 mg one p.o. one time per day one tablet twice daily Protonix 40 mg p.o. once daily (Stopped) Cozaar 50 mg one tablet p.o. two times per day Cimetidine 400 mg one tablet p.o. two times per day in the morning and at bedtime (Stopped) Ativan 0.5 mg one tablet p.o. two times per day p.r.n. Tramadol 50 mg one tablet p.o. two times per day as needed Antivert 12.5 mg one tablet p.o. two times per day p.r.n Fosamax 70 mg one tablet p.o. one time per week Lexapro 20 mg one tablet p.o. once daily Librium 10 mg one tablet p.o. two times per day (Stopped) Coreg 25 mg twice daily Aspirin 81 mg one p.o. once a day ALLERGIES: AVINZA (VOMITING), COMPAZINE (UPSET STOMACH), DURAGESIC (RASH), PENICILLIN (RASH), SULFA (UPSET STOMACH), SIMVASTATIN, CLARITHROMYCIN (FROM BIAXIN) PHYSICAL EXAMINATION: V/S: Pulse 84, BP 138/80, temperature 98.1, 02 sat 97%, Weight 141.6 lbs. Height 5'2", BMI 25.9. GENERAL APPEARANCE: Oriented times three. Pallor positive. HEENT: Normal. NECK: No JVP, no bruits. RESPIRATORY: Decreased breath sounds, rales bilaterally. CARDIOVASCULAR: S1, S2, no S3, no murmurs. No cyanosis, clubbing. No ascites. GI/ABDOMEN: Left upper quadrant tenderness around the left flank.. Bowel sounds are active. EXTREMITIES: No edema, pulses +1, equal. ICER MACHINE: Deep tendon reflexes, sensory, motor and gait all normal. RECTAL/PELVIC: Colonoscopy with Dr. Keen on 07/01. Pelvic: Advised yearly. Patient refused mammogram. ASSESSMENT: 1. ACUTE PNEUMONITIS 2. DEHYDRATION 3. ELEVATED LIVER FUNCTION 4. LEFT UPPER QUADRANT PAIN PLAN: 1. Admit with routine telemetry orders. 2. CBC/CMP today and daily. 3. Amylase and lipase now. 4. Hepatitis panel. 5. Solu-Cortef 125 mg IV q.8hr 6. Xopenex t.i.d. scheduled nebs. 7. 02 1-2L NC. 8. NS IV @ 75 cc/hr. 9. Patient wants DNR. 10. Levaquin 250 mg IV daily 11. UA 12. Chest x-ray 13. ABG room air 14. Continue home medications 15. Regular diet 16. Zofran 4 mg IV q.6h p.r.n. 17. CT scan abdomen and pelvis with and without contrast TIME SPENT: More than 70 minutes. MTDD
[2018-08-07] MEDS: XOPENEX 1.25 MG NEB SCH ×3 (04:50→20:10)
[2018-08-07] MEDS: PULMICORT 0.5 MG/2 ML NEB SCH ×2 (05:43→20:10)
[2018-08-07] MEDS: LEVAQUIN PO SCH (05:44)
--- NOTE | 2018-08-07 07:54 | PN ---
DATE OF SERVICE: 08/03/18 SUBJECTIVE: 83-year-old white female hospitalized with acute pneumonitis, dehydration. The patient's condition has improved. She said that Nubain with Toradol helped alot yesterday. She is still coughing. We are going to put her on Phenergan with Codeine and also give 1 mg of Nubain for pain, generalized aches. WBC count has gone up. Likely the patient had viral bronchitis or pneumonitis. Liver profile seems to have improved. REVIEW OF SYSTEMS: CONSTITUTIONAL: No night sweats. No fatigue, malaise, lethargy. No fever or chills. HEENT: Eyes: No visual changes. No eye pain. No eye discharge. ENT: No runny nose. No epistaxis. No sinus pain. No sore throat. No odynophagia. No congestion. RESPIRATORY: Dry cough. No hemoptysis. No shortness of breath. CARDIOVASCULAR: No angina symptoms. No CHF symptoms. No atypical chest pain for CAD. No palpitations. No PND. No orthopnea. GASTROINTESTINAL: No abdominal pain. No nausea or vomiting. No diarrhea or constipation. No hematemesis. No hematochezia. GENITOURINARY: No urgency. No frequency. No dysuria. No hematuria. No obstructive symptoms. No discharge. No pain. No significant abnormal bleeding. MUSCULOSKELETAL: Generalized aches better. NEUROLOGICAL: No headache. No neck pain. No syncope. No seizures. No dizziness. PSYCHIATRIC: Not anxious. No depression. No suicidal thoughts. No homicidal thoughts. SKIN: No rash. No lesions. No wounds. ENDOCRINE: No unexplained weight loss. No weight gain. HEMATOLOGIC/LYMPHATIC: No anemia. No purpura. No petechiae. No prolonged or excessive bleeding. No palpable lymph nodes. PHYSICAL EXAMINATION: VITAL SIGNS: Temperature 97.7, pulse 65, respiratory rate 16, blood pressure 147/73, pulse ox 94%. HEENT: Head normocephalic, atraumatic. Eyes: Extraocular muscles are intact. Pupils are equal, round and reactive to light and accommodation. Ears: No lesions. Nose appeared normal. Throat: No exudate or erythema. NECK: Supple. No JVD, no carotid bruit. No lymphadenopathy or thyromegaly. LUNGS: Decreased breath sounds but clear to auscultation. Percussion note normal. Chest symmetrical. HEART: S1, S2, no S3. No murmurs. No cyanosis or clubbing. No ascites. Pulses: Dorsalis pedis and posterior tibial pulses +1 to +2 bilaterally. ABDOMEN: Soft. Nontender. Bowel sounds active. No CVA tenderness. No mass felt. EXTREMITIES: No edema. Full range of motion of all extremities, equal. NEUROLOGIC: No focal deficit. Cranial nerves II through XII are grossly intact. No headache, no double vision or headache. SKIN: Not dry. Intact. Turgor - alot better. LYMPHATIC: No palpable lymph nodes/no lymphedema. MUSCULOSKELETAL: Normal joints with no swelling. Muscle tone is normal. LABS: Hemoglobin 10, hematocrit 29, WBC 8,400, normal differential. Creatinine 0.9, BUN 25, potassium 4.4. ASSESSMENT: 1. ACUTE BRONCHITIS/PNEUMONITIS, VIRAL SEEMS TO BE IMPROVING. PLAN: 1. D/C the Solu-Cortef and put the patient on Prednisone 20 mg p.o. daily. 2. The patient says "I know I have a spot on the lung. The ER doctor told me about it". "I talked to my family and told them that I don't want anything to be done even if there is a cancer of the lung, I don't want any further investigation or any referral to any other doctors." The patient repeated the whole thing again and is oriented to time, place and person. She declined any followup for the spot on the lung. The patient is a smoker. Counseling for smoking done. TIME SPENT: More than 30 minutes. Plan and coordination of the patient's care discussed in the presence of nurse. ALEXUS
--- NOTE | 2018-08-07 07:57 | PN ---
DATE OF SERVICE: 08/04/18 SUBJECTIVE: The patient was seen and examined with the nurse practitioner. She is still coughing some and needs more antibiotics, steroids, nebs. Counseling for smoking done. Again, the patient does not want any followup on the spot on the lung, CT scan, or any referral. CONDITION: Stable. TIME SPENT: More than 30 minutes. Plan and coordination of the patient's care discussed in the presence of nurse. ALEXUS
--- NOTE | 2018-08-07 08:00 | PN ---
DATE OF SERVICE: 08/05/18 SUBJECTIVE: The patient was seen and examined with the nurse practitioner. Condition improving. Appetite improving. Cachexia much less than before. Liver profile better. CONDITION: Stable. TIME SPENT: More than 30 minutes. Plan and coordination of the patient's care discussed in the presence of nurse. ALEXUS
[2018-08-07] MEDS: COZAAR PO SCH ×2 (08:14→21:11)
[2018-08-07] MEDS: ASPIRIN CHEWABLE PO SCH (08:14)
[2018-08-07] MEDS: LEXAPRO PO SCH (08:14)
[2018-08-07] MEDS: COREG PO SCH ×2 (08:15→17:27)
[2018-08-07] MEDS: ZOFRAN 4 MG/2 ML IVP PRN (08:15)
[2018-08-07] MEDS: NORVASC PO SCH (08:15)
[2018-08-07] MEDS: PREDNISONE PO SCH ×2 (08:15→17:28)
--- NOTE | 2018-08-07 08:59 | PCM.PROG ---
Attending Provider: ATTENDING PROVIDER: Dr. SAGE MCCORMACK DATE OF SERVICE: 08/07/18 SUBJECTIVE: This 83 year old WHITE/ F was hospitalized 08/02/18. The patient is not feeling good and nauseated. Her appetite is better. The patient's blood pressure had one time reading of one time reading of 177 but normally runs 130- 140. The patient already on several medications. The only thing that could be add would be mild diuretic. We will watch her blood pressure today. Still coughing some. For her nausea we will given Zofran. REVIEW OF SYSTEMS: CONSTITUTIONAL: No night sweats. No fatigue, malaise, lethargy. No fever or chills. HEENT: Eyes: No visual changes. No eye pain. No eye discharge. ENT: No runny nose. No epistaxis. No sinus pain. No odynophagia. No congestion. RESPIRATORY: Cough, no congestion. No hemoptysis. No shortness of breath. CARDIOVASCULAR: No angina symptoms. No CHF symptoms. No atypical chest pain for CAD. No palpitations. No orthopnea.. GASTROINTESTINAL: No abdominal pain. No nausea or vomiting. No diarrhea or constipation. No hematemesis. No hematochezia. GENITOURINARY: No urgency. No frequency. No dysuria. No hematuria. No obstructive symptoms. No discharge. No pain. No significant abnormal bleeding. MUSCULOSKELETAL: No musculoskeletal pain; no joint swelling. NEUROLOGICAL: Awake, alert, oriented to time, place and person. No headache. No neck pain. No syncope. No seizures. No dizziness. PSYCHIATRIC: Not anxious. No depression. No suicidal thoughts. No homicidal thoughts. SKIN: No rash. No lesions. No wounds. ENDOCRINE: No unexplained weight loss. No weight gain. HEMATOLOGIC/LYMPHATIC: No anemia. No purpura. No petechiae. No prolonged or excessive bleeding. No palpable lymph nodes. PHYSICAL EXAMINATION: GENERAL: The patient is awake, alert and oriented to time, place and person, lying in bed in no distress. VITAL SIGNS: Temperature 97.8 F, Pulse 60, Respiratory Rate 14, BP 177/76, Pulse Ox 97% HEENT: Head normocephalic, atraumatic. Eyes: Extraocular muscles are intact. Pupils are equal, round and reactive to light and accommodation. Ears: No lesions. Nose appeared normal. Throat: No exudate or erythema. NECK: Supple. No JVD, no carotid bruit. No lymphadenopathy or thyromegaly. LUNGS: Clear to auscultation. Percussion note normal. Chest symmetrical. HEART: S1, S2, no S3. No murmurs. No cyanosis or clubbing. No ascites. Pulses: Dorsalis pedis and posterior tibial pulses +1 to +2 both sides. ABDOMEN: Soft. Non-tender. Bowel sounds active. No CVA tenderness. No mass felt. EXTREMITIES: No edema. Full range of motion of all extremities, equal. NEUROLOGIC: No focal deficit. Cranial nerves II through XII are grossly intact. No headache, no double vision or headache. SKIN: Warm and dry. Intact. Turgor-normal. LYMPHATIC: No palpable lymph nodes/no lymphedema. MUSCULOSKELETAL: Normal joints with no swelling. Muscle tone is normal. LAB REVIEW: 08/07/18 04:00 08/07/18 04:00 08/07/18 04:00: Sodium 128.6 L, Potassium 4.31, Chloride 96.4 L, Carbon Dioxide 24.2, Anion Gap 12.31, BUN 18.1 H, Creatinine 0.63, Estimated GFR (MDRD) 90.00, BUN/Creatinine Ratio 28.73, Glucose 146.0 H, Calcium 8.37 L, Total Bilirubin 0.49, AST 17.4, ALT 35.4 H, Alkaline Phosphatase 84.6, Total Protein 5.84 L, Albumin 3.43 L, Globulin 2.41, Albumin/Globulin Ratio 1.42 08/07/18 04:00: WBC 8.11, RBC 3.72 L, Hgb 10.4 L, Hct 31.0 L, MCV 83.3, MCH 28.0 , MCHC 33.5, RDW Coeff of Gerald 13.3, Plt Count 253, Immature Gran % (Auto) 0.6, Neut % (Auto) 73.2, Lymph % (Auto) 18.6, [place] % (Auto) 7.4, Eos % (Auto) 0.1, Baso % (Auto) 0.1, Immature Gran # (Auto) 0.1, Neut # (Auto) 5.9, Lymph # (Auto ) 1.5, [place] # (Auto) 0.6, Eos # (Auto) 0.0, Baso # (Auto) 0.0 ASSESSMENT: Please see below. 1. Acute pneumonitis/bronchitis; CT scan of the chest did not show any spot that was seen on chest x-ray. 2. Counseling for smoking done PLAN: 1. Zofran Plan and coordination of the patient's care discussed in the presence of Staff Radiation Therapist and nurse. SCRIBED BY: Ridge ORR scribed while in presence of service performed by Dr. SAGE MCCORMACK on 08/07/18 ([id number])
[2018-08-08 04:40] VITALS: BP 162/79; TEMP 98
[2018-08-08] MEDS: XOPENEX 1.25 MG NEB SCH ×2 (04:50→14:25)
[2018-08-08] MEDS: PULMICORT 0.5 MG/2 ML NEB SCH (04:50)
[2018-08-08] MEDS: LEVAQUIN PO SCH (06:07)
[2018-08-08] MEDS: NORVASC PO SCH (09:07)
[2018-08-08] MEDS: LEXAPRO PO SCH (09:08)
[2018-08-08] MEDS: PREDNISONE PO SCH ×2 (09:08→16:49)
[2018-08-08] MEDS: ASPIRIN CHEWABLE PO SCH (09:08)
[2018-08-08] MEDS: COREG PO SCH ×2 (09:08→16:49)
[2018-08-08] MEDS: COZAAR PO SCH (09:08)
--- NOTE | 2018-08-08 09:49 | PCM.PROG ---
Attending Provider: ATTENDING PROVIDER: Dr. SAGE MCCORMACK This patient is seen with Cheri Zaragoza, Nurse Practitioner. DATE OF SERVICE: 08/08/18 SUBJECTIVE: This 83 year old WHITE/ F was hospitalized 08/02/18. The patient is resting comfortably. Cough is significantly better. No shortness of breath. She states that she is ready to go home. REVIEW OF SYSTEMS: CONSTITUTIONAL: No night sweats. Fatigue. No fever or chills. HEENT: Eyes: No visual changes. No eye pain. No eye discharge. ENT: No runny nose. No epistaxis. No sinus pain. No odynophagia. No congestion. RESPIRATORY: Cough, no congestion. No hemoptysis. No shortness of breath. CARDIOVASCULAR: No angina symptoms. No CHF symptoms. No atypical chest pain for CAD. No palpitations. No orthopnea.. GASTROINTESTINAL: No abdominal pain. No nausea or vomiting. No diarrhea or constipation. No hematemesis. No hematochezia. GENITOURINARY: No urgency. No frequency. No dysuria. No hematuria. No obstructive symptoms. No discharge. No pain. No significant abnormal bleeding. MUSCULOSKELETAL: No musculoskeletal pain; no joint swelling. NEUROLOGICAL: Awake, alert, oriented to time, place and person. No headache. No neck pain. No syncope. No seizures. No dizziness. PSYCHIATRIC: Not anxious. No depression. No suicidal thoughts. No homicidal thoughts. SKIN: No rash. No lesions. No wounds. ENDOCRINE: No unexplained weight loss. No weight gain. HEMATOLOGIC/LYMPHATIC: No anemia. No purpura. No petechiae. No prolonged or excessive bleeding. No palpable lymph nodes. PHYSICAL EXAMINATION: GENERAL: The patient is awake, alert and oriented, lying in bed in no distress. VITAL SIGNS: Temperature 98 F, Pulse 55, Respiratory Rate 16, BP 162/79, Pulse Ox 100% HEENT: Head normocephalic, atraumatic. Eyes: Extraocular muscles are intact. Pupils are equal, round and reactive to light and accommodation. Ears: No lesions. Nose appeared normal. Throat: No exudate or erythema. NECK: Supple. No JVD, no carotid bruit. No lymphadenopathy or thyromegaly. LUNGS:Diminished breath sounds. No wheezing. Clear to auscultation. Percussion note normal. Chest symmetrical. HEART: S1, S2, no S3. No murmurs. No cyanosis or clubbing. No ascites. Pulses: Dorsalis pedis and posterior tibial pulses +1 to +2 both sides. ABDOMEN: Soft. Non-tender. Bowel sounds active. No CVA tenderness. No mass felt. EXTREMITIES: No edema. Full range of motion of all extremities, equal. NEUROLOGIC: No focal deficit. Cranial nerves II through XII are grossly intact. No headache, no double vision or headache. SKIN: Not dry. Intact. Turgor-normal. LYMPHATIC: No palpable lymph nodes/no lymphedema. MUSCULOSKELETAL: Normal joints with no swelling. Muscle tone is normal. LAB REVIEW: 08/08/18 05:00 08/08/18 05:00 08/08/18 05:00: Sodium 126.6 L, Potassium 4.71, Chloride 93.5 L, Carbon Dioxide 26.1, Anion Gap 11.71, BUN 18.0 H, Creatinine 0.71, Estimated GFR (MDRD) 79.00, BUN/Creatinine Ratio 25.35, Glucose 145.0 H, Calcium 8.59, Total Bilirubin 0.51 , AST 20.4, ALT 29.5, Alkaline Phosphatase 89.1, Total Protein 6.05 L, Albumin 3.65, Globulin 2.40, Albumin/Globulin Ratio 1.52 08/08/18 05:00: WBC 7.46, RBC 4.21, Hgb 11.6 L, Hct 34.6 L, MCV 82.2, MCH 27.6, MCHC 33.5, RDW Coeff of Gerald 13.2, Plt Count 312, Immature Gran % (Auto) 2.0, Neut % (Auto) 72.2, Lymph % (Auto) 17.0, [place] % (Auto) 8.6, Eos % (Auto) 0.1, Baso % (Auto) 0.1, Immature Gran # (Auto) 0.2, Neut # (Auto) 5.4, Lymph # (Auto ) 1.3, [place] # (Auto) 0.6, Eos # (Auto) 0.0, Baso # (Auto) 0.0 ASSESSMENT: Please see below. 1. Acute pneumonia, improving 2. Dehydration, resolved 3. Elevated kidney function resolved 4. Hypertension PLAN: 1. Discharge home 2. ProAir inhaler two puff three times a day 3. Levaquin 500mg daily for 5 days 4. Prednisone 10mg PO twice a day times 5 days 5. Phenergan with codeine 1-2 tsp Q 6 hours. home Plan and coordination of the patient's care discussed in the presence of Design Engineering Specialist and nurse. SCRIBED BY: Kevin ORRist scribed while in presence of service performed by Dr. Mccormack/Cheri Zaragoza APRN on 08/08/18 ([id number])
--- NOTE | 2018-08-08 11:30 | CM.DICTOOL ---
ADMISSION: 08/02/18 12:26 DISCHARGE: AUGUST 08, 2018 DATE OF SERVICE: 08/08/18 FINAL DIAGNOSIS ACUTE PNEUMONITIS DEHYDRATION ELEVATED LFT'S HYPERTENSION HYPONATREMIA ANEMIA B12 DEFIECIENCY GERD COPD CVA, 1998 CAD WITH STENT APPLICATION, DYSLIPIDEMIA PAGET'S DISEASE GENERAL ANXIETY DISORDER DEPRESSION OSTEOARTHRITIS DIVERTICULOSIS CHOLECYSTECTOMY HYSTERECTOMY COLON RESECTION ESOPHAGEAL REPAIR BILATERAL CATARACT EXTRACTION ECHOCARDIOGRAM: (06/19/2018) LVH WITH ENLARGED LEFT ATRIAL CAVITY LVEF 70% NORMAL VALVES LAST VITALS Temp Pulse Resp BP Pulse Ox 98 F 55 L 18 162/79 H 100 08/08/18 04:39 08/08/18 04:39 08/08/18 08:00 08/08/18 04:39 08/08/18 04:39 TAKE THESE MEDICATIONS AT HOME Alendronate Sodium (Fosamax) 70 mg PO WEEKLY FOSAMAX [facility] Last Admin: 08/05/18 05:41 Dose: 70 mg Amlodipine Besylate (Norvasc) 5 mg PO DAILY [facility] Last Admin: 08/08/18 09:07 Dose: 5 mg Aspirin (Aspirin Chewable) 81 mg PO DAILYWM [facility] Last Admin: 08/08/18 09:08 Dose: 81 mg Carvedilol (Coreg) 25 mg PO BIDWM [facility] Last Admin: 08/08/18 09:08 Dose: 25 mg Diazepam (Valium) 1 - 2 mg PO BEDTIME PRN PRN Reason: SYNCOPE, DIZZINESS Last Admin: 08/04/18 20:32 Dose: 2 mg Escitalopram Oxalate (Lexapro) 20 mg PO DAILY [facility] Last Admin: 08/08/18 09:08 Dose: 20 mg Levofloxacin (Levaquin) 500 mg PO QDAC [facility] Stop: 08/09/18 08:29 Last Admin: 08/08/18 06:07 Dose: 500 mg Losartan Potassium (Cozaar) 50 mg PO BID [facility] Last Admin: 08/08/18 09:08 Dose: 50 mg Meclizine HCl (Antivert) 12.5 mg PO BID PRN PRN Reason: Dizziness Prednisone (Prednisone) 10 mg PO BIDWM [facility] Last Admin: 08/08/18 09:08 Dose: 10 mg Promethazine HCl/Codeine (Phenergan With Codeine 6.25/10 Mg/5 Ml) 10 ml PO Q6H PRN PRN Reason: Cough Last Admin: 08/06/18 22:03 Dose: 10 ml Tramadol HCl (Ultram) 50 mg PO BID PRN PRN Reason: Pain Last Admin: 08/05/18 13:15 Dose: 50 mg PRO AIR HFA 2 PUFFS TID ALLERGIES Penicillins Adverse Reaction (Mild, Verified 08/02/18 13:31) clarithromycin [From Biaxin] Adverse Reaction (Verified 07/29/18 13:13) fentanyl [From Duragesic] Adverse Reaction (Verified 08/02/18 13:31) morphine [From Avinza] Adverse Reaction (Verified 08/02/18 13:31) prochlorperazine [From Compazine] Adverse Reaction (Verified 08/02/18 13:31) simvastatin Adverse Reaction (Verified 08/02/18 13:31) Sulfa (Sulfonamide Antibiotics) Adverse Reaction (Verified 07/29/18 13:13) DISCONTINUED MEDICATIONS LORAZEPAM NEW PRESCRIPTIONS: PROAIR INHALER 2 PUFFS TID PHENERGAN WITH CODEINE 1-2 TSP. EVERY 6 HOURS NEEDED FOR COUGH LEVAQUIN 500 MG DAILY FOR 5 DAYS PREDNISONE 10 MG BID FOR 5 DAYS SMOKING: SMOKES 1 CIGARETTE DAILY IN THE MORNING, BUT STATES SHE MAY JUST STOP DUE TO NOT SMOKING IN AT LEAST 1 WEEK DISEASE SPECIFIC EDUCATION: USE OF INHALER ACTIVITY MEDICATIONS, INCLUDING USE OF ORAL STEROIDS AND RISK OF GI UPSET, BONE DEMINERALIZATION APPOINTMENT LAB REVIEW: 08/08/18 05:00 08/08/18 05:00 08/08/18 05:00: Sodium 126.6 L, Potassium 4.71, Chloride 93.5 L, Carbon Dioxide 26.1, Anion Gap 11.71, BUN 18.0 H, Creatinine 0.71, Estimated GFR (MDRD) 79.00, BUN/Creatinine Ratio 25.35, Glucose 145.0 H, Calcium 8.59, Total Bilirubin 0.51 , AST 20.4, ALT 29.5, Alkaline Phosphatase 89.1, Total Protein 6.05 L, Albumin 3.65, Globulin 2.40, Albumin/Globulin Ratio 1.52 08/08/18 05:00: WBC 7.46, RBC 4.21, Hgb 11.6 L, Hct 34.6 L, MCV 82.2, MCH 27.6, MCHC 33.5, RDW Coeff of Gerald 13.2, Plt Count 312, Immature Gran % (Auto) 2.0, Neut % (Auto) 72.2, Lymph % (Auto) 17.0, [place] % (Auto) 8.6, Eos % (Auto) 0.1, Baso % (Auto) 0.1, Immature Gran # (Auto) 0.2, Neut # (Auto) 5.4, Lymph # (Auto ) 1.3, [place] # (Auto) 0.6, Eos # (Auto) 0.0, Baso # (Auto) 0.0 PLAN: DISCHARGE HOME WITH DAUGHTER DIET: REGULAR TOLERATED ACTIVITY: RESUME TOLERATED, AVOID HEAT AND OUTSIDE EXERTION FOR SEVERAL DAYS AN APPOINTMENT IS SCHEDULED WITH DR. MCCORMACK/TIBURCIO VALDIVIA APRN ON July AT 10:15 AM CODE STATUS: DNR MS. LITTLE IS ALERT AND ORIENTED X 3. MS. LITTLE IS AGREEABLE TO DISCHARGE PLANS FOR TODAY AND REPORTS HER DAUGHTER WILL TAKE HER HOME LATER THIS AFTERNOON. SHE LIVES AT HOME WITH HER DAUGHTER AND PER PATIENT "WE HELP EACH OTHER". MS. LITTLE IS INDEPENDENT WITH ACTIVITIES OF DAILY LIVING AND DOES NOT REQUIRE AN ASSISTIVE DEVICE WITH AMBULATION IN THE HOSPITAL OR AT HOME. SHE TRANSFERS HERSELF FROM THE BED TO THE CHAIR AND IS AMBULATORY IN THE ROOM. MEAL INTAKES ARE FAIR AT 25%. LIQUID INTAKE IS GOOD. SHE IS CONTINENT OF BOWEL, BUT HAS URINARY DRIBBLING AND STRESS INCONTINENCE REQUIRING USE OF DEPENDS UNDERGARMENTS. SKIN TURGOR IS IMPROVED. SKIN IS FREE OF DECUBITUS ULCERS. MD TIBURCIO MELVIN APRN
--- NOTE | 2018-08-09 13:53 | DS ---
DATE OF SERVICE: 08/08/18 FINAL DIAGNOSIS: ACUTE PNEUMONITIS DEHYDRATION ELEVATED LFT'S HYPERTENSION HYPONATREMIA ANEMIA B12 DEFICIENCY GERD COPD CVA, 1998 CAD WITH STENT APPLICATION, DYSLIPIDEMIA PAGET'S DISEASE GENERAL ANXIETY DISORDER DEPRESSION OSTEOARTHRITIS DIVERTICULOSIS CHOLECYSTECTOMY HYSTERECTOMY COLON RESECTION ESOPHAGEAL REPAIR BILATERAL CATARACT EXTRACTION ECHOCARDIOGRAM: (06/19/2018) [facility] WITH ENLARGED LEFT ATRIAL CAVITY LVEF 70% NORMAL VALVES LAST VITALS: Temp Pulse Resp BP Pulse Ox 98 F 55 L 18 162/79 H 100 08/08/18 04:39 08/08/18 04:39 08/08/18 08:00 08/08/18 04:39 08/08/18 04:39 DISCHARGE INSTRUCTIONS: AN APPOINTMENT IS SCHEDULED WITH DR. MCCORMACK/TIBURCIO VALDIVIA APRN ON July AT 10:15 AM. CODE STATUS: DNR. DISCHARGE HOME WITH DAUGHTER TAKE THESE MEDICATIONS AT HOME: Alendronate Sodium (Fosamax) 70 mg PO WEEKLY FOSAMAX YAW Amlodipine Besylate (Norvasc) 5 mg PO DAILY YAW Aspirin (Aspirin Chewable) 81 mg PO DAILYWM YAW Carvedilol (Coreg) 25 mg PO BIDWM YAW Diazepam (Valium) 1 - 2 mg PO BEDTIME PRN Escitalopram Oxalate (Lexapro) 20 mg PO DAILY YAW Levofloxacin (Levaquin) 500 mg PO QDAC YAW Losartan Potassium (Cozaar) 50 mg PO BID YAW Meclizine HCl (Antivert) 12.5 mg PO BID PRN Prednisone (Prednisone) 10 mg PO BIDWM YAW Promethazine HCl/Codeine (Phenergan With Codeine 6.25/10 Mg/5 Ml) 10 ml PO Q6H PRN Tramadol HCl (Ultram) 50 mg PO BID PRN PRO AIR HFA 2 PUFFS TID ALLERGIES: Penicillins Adverse Reaction (Mild, Verified 08/02/18 13:31) clarithromycin [From Biaxin] Adverse Reaction (Verified 07/29/18 13:13) fentanyl [From Duragesic] Adverse Reaction (Verified 08/02/18 13:31) morphine [From Avinza] Adverse Reaction (Verified 08/02/18 13:31) prochlorperazine [From Compazine] Adverse Reaction (Verified 08/02/18 13:31) simvastatin Adverse Reaction (Verified 08/02/18 13:31) Sulfa (Sulfonamide Antibiotics) Adverse Reaction (Verified 07/29/18 13:13) DISCONTINUED MEDICATIONS: LORAZEPAM NEW PRESCRIPTIONS: PROAIR INHALER 2 PUFFS TID PHENERGAN WITH CODEINE 1-2 TSP. EVERY 6 HOURS NEEDED FOR COUGH LEVAQUIN 500 MG DAILY FOR 5 DAYS PREDNISONE 10 MG BID FOR 5 DAYS SMOKING: SMOKES 1 CIGARETTE DAILY IN THE MORNING, BUT STATES SHE MAY JUST STOP DUE TO NOT SMOKING IN AT LEAST 1 WEEK DISEASE SPECIFIC EDUCATION: USE OF INHALER ACTIVITY MEDICATIONS, INCLUDING USE OF ORAL STEROIDS AND RISK OF GI UPSET, BONE DEMINERALIZATION APPOINTMENT DIET: REGULAR TOLERATED ACTIVITY: RESUME TOLERATED, AVOID HEAT AND OUTSIDE EXERTION FOR SEVERAL DAYS HOSPITAL COURSE: An 83 year old white female who was a direct admit from out office. She had been previously seen in the emergency room with shortness of breath, cough and congestion. Her liver function AST was 400 and ALT 298. She presented to our office for her ER followup. She was more short of breath, very weak, hypotensive and complaining of abdominal pain. She was a direct admit. CT of the abdomen showed no acute process. Hepatitis panel was normal. We did hold her cholesterol medication. She was admitted and placed on Levaquin 500mg IV daily along with Xopenex NEB treatment, Solu-Cortef 100mg IV Q [address] showed acute pneumonitis, no definite pneumonia. Her liver function gradually began to improve. He did have fever on admission which resolved within about 36 hours. She has a long history of a smoker and it did take her awhile for her wheezing and shortness of breath to improve. As of today she has been on PO steroids for the past two days and has been doing well. She has been eating well for the past two days. Yesterday got up and about walking around without shortness of breath so we do believe that she is ready to go home today. She does not have a nebulizer machine at home. I have started her on a ProAir Inhaler two puffs three times a day. We will send that home with her. She is also going to have Levaquin 500mg daily for the next 5 days along with Prednisone 10mg twice a day for the next 5 days. Phenergan with codeine 1-2 tsp Q 6 hours. Information has been given regarding smoking cessation although she has not been smoking while in the hospital so I advised her this would be the perfect time to quit. She is instructed to stay inside and not be out in the heat and the humidity. She does live with her daughter so she will have a care team assistant there. 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 She will be discharged today in stable condition and we will followup with her in the office next week. TIME SPENT: More than 60 minutes. ALEXUS
== END 2018-08-08 18:05 | disposition home or self-care (01) | DRG 202 ==
LOC: MEDSURG B 12:26
PROVIDERS: ADMIT Internal Medicine; ATTEND Internal Medicine
DX: J40 Bronchitis, not specified as acute or chronic (principal); E87.1 Hypo-osmolality and hyponatremia; J44.9 Chronic obstructive pulmonary disease, unspecified; E86.0 Dehydration; E53.8 Deficiency of other specified B group vitamins; E78.5 Hyperlipidemia, unspecified; D64.9 Anemia, unspecified; I10 Essential (primary) hypertension; I25.10 Atherosclerotic heart disease of native coronary artery without angina pectoris; K21.9 Gastro-esophageal reflux disease without esophagitis; K57.90 Diverticulosis of intestine, part unspecified, without perforation or abscess without bleeding; M88.9 Osteitis deformans of unspecified bone; M19.90 Unspecified osteoarthritis, unspecified site; F41.1 Generalized anxiety disorder; F32.9 Major depressive disorder, single episode, unspecified; R79.89 Other specified abnormal findings of blood chemistry; R10.12 Left upper quadrant pain; Z86.73 Personal history of transient ischemic attack (TIA), and cerebral infarction without residual deficits; Z72.0 Tobacco use; Z91.19 Patient's noncompliance with other medical treatment and regimen
CPT/HCPCS: 36415; 80053; 81001; 82150; 82248; 82550; 82803; 82947; 83690; 84484; 85007; 85025; 93005; 93010; 94640

== ENCOUNTER 2018-08-10 07:12 | Outpatient (CLI) | END 2018-08-10 07:35 | disposition short-term general hospital (02) | LOC: AMBL 07:12 | PROVIDERS: ATTEND Internal Medicine Geriatric Medicine | DX: R55 Syncope and collapse (principal); R41.0 Disorientation, unspecified; R40.2411 Glasgow coma scale score 13-15, in the field [EMT or ambulance]; R06.03 Acute respiratory distress; R00.1 Bradycardia, unspecified; R11.0 Nausea ==